=== PATIENT | male | born 1960 | race Caucasian/White ===

== ENCOUNTER 2020-06-15 09:03 | Outpatient (REF) | payer MEDICARE, MEDICAID, SELFPAY ==
[2020-06-15 10:01] LABS: MANUAL DIFF FLAG NO
[2020-06-15 10:08] LABS: Basophils Percent Auto 0.4 % (0-2); Eosinophils Absolute Auto 0.2 X10*3/uL (0.0-0.4); Eosinophils Percent Auto 2.1 % (0-4); Hematocrit 52.9 % (42-52); Hemoglobin 17.7 g/dl (14.0-18.0); Imm Gran Abs Auto 0.03 X10*3/uL (0.00-0.03); Imm Gran Pct Auto 0.4 % (0.0-0.4); Lymphocytes Percent Auto 24.1 % (20-40); Mean Corpuscular HGB Conc 33.5 g/dl (31.0-36.0); Mean Corpuscular Hemoglobin 29.8 pg (27.0-33.0); Mean Corpuscular Volume 89.2 fL (80-98); Mean Platelet Volume 8.9 fL (9.4-12.4); Monocytes Absolute Auto 0.5 X10*3/uL (0.1-1.2); Monocytes Percent Auto 6.6 % (2-11); Neutrophils Absolute Auto 5.5 X10*3/uL (2.0-8.3); Neutrophils Percent Auto 66.4 % (45-73); Platelet Count 221 X10*3/uL (160-400); Red Blood Count 5.93 X10*6/uL (4.60-5.80); Red Cell Distribution Width 12.7 % (11.0-16.0); White Blood Count 8.2 X10*3/uL (4.8-10.8)
[2020-06-15 10:23] LABS: Estimated Average Glucose 134 mg/dL; Hemoglobin A1c % 6.3 %
[2020-06-15 10:29] LABS: Alanine Aminotransferase 27 U/L (0-40); Albumin Level 4.3 g/dL (3.5-5.0); Alkaline Phosphatase 92 U/L (39-117); Anion Gap 11 (12-20); Aspartate Amino Transferase 22 U/L (5-37); Bilirubin Total 0.9 mg/dL (0.0-1.0); Blood Urea Nitrogen 19 mg/dL (9-16); Calcium 9.2 mg/dL (8.4-10.2); Carbon Dioxide 29 mmol/L (22-29); Chloride 102 mmol/L (96-108); Cholesterol 101 mg/dL; Estimated Glomerular Filt Rate > 60; Glucose Random 119 mg/dL (60-115); HDL Cholesterol 29 mg/dL; LDL Cholesterol Calculated 53 mg/dl; Potassium 4.4 mmol/l (3.3-5.1); Sodium 138 mmol/L (135-145); Total Protein 7.1 g/dL (6.5-8.0); Triglycerides 99 mg/dL
[2020-06-15 10:46] LABS: T4 Thyroxine 6.3 ug/dL (4.5-12.0)
[2020-06-15 10:48] LABS: Creatinine Urine 320.35 mg/dL; Microalbum/Creatinine Ratio Ur 5.9 ug/mg cr
[2020-06-15 10:49] LABS: Prostate Specific Antigen Scr 0.63 ng/mL (<0.05-4.0)
[2020-06-15 11:17] LABS: Folate 7.5 ng/mL (> or = 4.0); Vitamin B12 437 pg/mL (200-900)
== END 2020-06-15 09:04 | disposition home or self-care (01) ==
LOC: HO.LAB 09:03
PROVIDERS: PCP Internal Medicine; Visit Provider Internal Medicine
DX: E78.00 Pure hypercholesterolemia, unspecified (principal); E11.9 Type 2 diabetes mellitus without complications; J44.9 Chronic obstructive pulmonary disease, unspecified; I25.10 Atherosclerotic heart disease of native coronary artery without angina pectoris; Z72.0 Tobacco use
CPT/HCPCS: 36415; 80053; 80061; 82043; 82607; 82746; 83036; 84153; 84436; 84443; 85025

== ENCOUNTER 2021-06-16 10:39 | Outpatient (REF) | payer OTHER, SELFPAY ==
[2021-06-16 13:44] LABS: Alanine Aminotransferase 33 U/L (0-40); Albumin Level 4.2 g/dL (3.5-5.0); Alkaline Phosphatase 87 U/L (39-117); Anion Gap 15 (12-20); Aspartate Amino Transferase 19 U/L (5-37); Bilirubin Total 0.9 mg/dL (0.0-1.0); Blood Urea Nitrogen 19 mg/dL (9-16); Calcium 9.8 mg/dL (8.4-10.2); Carbon Dioxide 27 mmol/L (22-29); Chloride 104 mmol/L (96-108); Cholesterol 138 mg/dL; Estimated Glomerular Filt Rate > 60; Glucose Fasting 130 mg/dL (60-99); HDL Cholesterol 29 mg/dL; LDL Cholesterol Calculated 77 mg/dl; Potassium 4.5 mmol/L (3.3-5.1); Sodium 141 mmol/L (135-145); Total Protein 7.1 g/dL (6.5-8.0); Triglycerides 163 mg/dL
== END 2021-06-16 10:40 | disposition home or self-care (01) ==
LOC: HO.10HDL 10:39
PROVIDERS: Visit Provider Nurse Practitioner Family
DX: E11.65 Type 2 diabetes mellitus with hyperglycemia (principal); E78.00 Pure hypercholesterolemia, unspecified; Z12.5 Encounter for screening for malignant neoplasm of prostate
CPT/HCPCS: 36415; 80053; 80061; 84153

== ENCOUNTER 2021-07-14 07:52 | Outpatient (RCR) | payer OTHER, SELFPAY | END 2021-07-28 15:08 | disposition home or self-care (01) | LOC: HO.WCC 07:52 | PROVIDERS: PCP Internal Medicine; Visit Provider Surgery | DX: E11.628 Type 2 diabetes mellitus with other skin complications (principal); L02.221 Furuncle of abdominal wall; F17.210 Nicotine dependence, cigarettes, uncomplicated; F12.90 Cannabis use, unspecified, uncomplicated | CPT/HCPCS: 99212 ==

== ENCOUNTER → 2021-08-23 10:12 | Outpatient (BNVA) | payer OTHER, SELFPAY | PROVIDERS: PCP Internal Medicine; Referring Provider Internal Medicine; Visit Provider Surgery | DX: K43.9 Ventral hernia without obstruction or gangrene (principal) | CPT/HCPCS: 99202 ==

== ENCOUNTER 2021-09-14 13:28 | Outpatient (REF) | payer OTHER, SELFPAY ==
--- NOTE | ~2021-09-14 | CT_ITS ---
EXAMINATION: CT ABDOMEN AND PELVIS WITHOUT CONTRAST CLINICAL INFORMATION: Ventral hernia. COMPARISON: Previous CT of the abdomen and pelvis from 2016 TECHNIQUE: Multidetector volumetric imaging was performed from the superior aspect of the liver through the pubic symphysis. Sagittal and coronal reformatted images were obtained on the technologist's workstation. This CT examination was performed using dose optimization techniques as appropriate, variously including the following: *Automated exposure control *Adjustment of mA and/or kV according to patient size (this includes techniques or standardized protocols for targeted exams where dose is matched to indication/reason for exam; i.e. extremities or head) *Use of iterative reconstruction technique DLP: 602 mGy-cm FINDINGS: LUNG BASES: There is a left posterior medial diaphragmatic hernia containing fat and the left adrenal gland. LIVER, GALLBLADDER, AND BILIARY TREE: There is a small 7 mm low-attenuation liver lesion that is stable and probably represents a cyst. The liver is otherwise unremarkable. The gallbladder is unremarkable. PANCREAS: Unremarkable. SPLEEN: Unremarkable. ADRENAL GLANDS: There is a small stable calcification in the left adrenal gland. The adrenal glands are otherwise unremarkable. KIDNEYS AND URETERS: The kidneys are normal in size, shape, and attenuation. There is question of a tiny stone in the upper pole of the left kidney. BLADDER: Not optimally distended. GASTROINTESTINAL TRACT: There is diverticulosis of the colon. No evidence of diverticulitis is seen. There are postsurgical changes to the transverse colon and small bowel with surgical staple lines. There is a slightly dilated fluid-filled loop of small bowel seen in the left lower abdominal wall in one of the hernias. The small bowel is otherwise unremarkable. The appendix is unremarkable. The stomach is unremarkable. ABDOMINAL WALL: There is a large complex ventral hernia. It begins 7 cm below the xiphoid process and contains the distal stomach. More inferiorly, this contains multiple loops of small and large bowel. This has a wide neck measuring 15 cm. The length of the hernia measures 31 cm. This measures 8 x 22 cm in AP and transverse dimension. There are smaller more inferior hernias. There is a smaller more inferior hernia to the right of midline that contains a loop of small bowel. There is a larger more inferior left-sided hernia that contains small and large bowel and the appendix. No definite evidence of vascular compromise or obstruction of the bowel is seen. LYMPH NODES: Normal. VASCULAR: There is atherosclerotic disease. PELVIC VISCERA: Unremarkable. OSSEOUS STRUCTURES: There are degenerative changes of the spine. CT/CT abdomen pelvis wo con IMPRESSION: Multiple large abdominal wall hernias containing loops of small and large bowel, appendix and stomach. No evidence of obstruction. Left posterior medial diaphragmatic hernia containing fat and the left adrenal gland. Fleischner guidelines were followed.
== END 2021-09-14 13:29 | disposition home or self-care (01) ==
LOC: HO.CT 13:28
PROVIDERS: Visit Provider Surgery
DX: K43.9 Ventral hernia without obstruction or gangrene (principal)
CPT/HCPCS: 74176

== ENCOUNTER 2022-05-12 10:30 | Outpatient (RCR) | payer OTHER, SELFPAY | END 2022-07-11 14:38 | disposition home or self-care (01) | LOC: HO.WCC 10:30 | PROVIDERS: PCP Internal Medicine; Visit Provider Physician Assistant | DX: S30.811D Abrasion of abdominal wall, subsequent encounter (principal); K43.2 Incisional hernia without obstruction or gangrene; X58.XXXD Exposure to other specified factors, subsequent encounter | CPT/HCPCS: 97597; 99202; 99212; 99213 ==

== ENCOUNTER 2022-06-10 08:36 | Outpatient (REF) | payer OTHER, SELFPAY ==
[2022-06-10 10:55] LABS: MANUAL DIFF FLAG NO
[2022-06-10 11:03] LABS: Basophils Absolute Auto 0.1 X10*3/uL (0.0-0.2); Basophils Percent Auto 0.8 % (0-2); Eosinophils Absolute Auto 0.2 X10*3/uL (0.0-0.4); Eosinophils Percent Auto 2.4 % (0-4); Hematocrit 50.2 % (42.0-52.0); Hemoglobin 16.5 g/dl (14.0-18.0); Imm Gran Abs Auto 0.02 X10*3/uL (0.00-0.03); Imm Gran Pct Auto 0.3 % (0.0-0.4); Lymphocytes Percent Auto 26.7 % (20-40); Mean Corpuscular HGB Conc 32.9 g/dl (31.0-36.0); Mean Corpuscular Hemoglobin 29.2 pg (27.0-33.0); Mean Corpuscular Volume 88.8 fL (80.0-98.0); Monocytes Absolute Auto 0.7 X10*3/uL (0.1-1.2); Monocytes Percent Auto 9.2 % (2-11); Neutrophils Absolute Auto 4.6 x10*3/uL (2.0-8.3); Neutrophils Percent Auto 60.6 % (45-73); Platelet Count 221 X10*3/uL (160-400); Red Blood Count 5.65 X10*6/uL (4.60-5.80); Red Cell Distribution Width 12.6 % (11.0-16.0); White Blood Count 7.6 X10*3/uL (4.8-10.8)
[2022-06-10 12:06] LABS: Estimated Average Glucose 146 mg/dL; Hemoglobin A1c % 6.7 %
[2022-06-10 14:28] LABS: Alanine Aminotransferase 65 U/L (0-40); Albumin Level 4.2 g/dL (3.5-5.0); Alkaline Phosphatase 93 U/L (39-117); Anion Gap 12 (12-20); Aspartate Amino Transferase 36 U/L (5-37); Bilirubin Total 0.8 mg/dL (0.0-1.0); Blood Urea Nitrogen 18 mg/dL (9-16); Calcium 9.5 mg/dL (8.4-10.2); Carbon Dioxide 30 mmol/L (22-29); Chloride 102 mmol/L (96-108); Cholesterol 126 mg/dL; Estimated Glomerular Filt Rate > 60; Free T4 (Free Thyroxine) 0.85 ng/dL (0.71-1.85); Glucose Random 157 mg/dL (60-115); HDL Cholesterol 34 mg/dL; LDL Cholesterol Calculated 57 mg/dl; Prostate Specific Antigen 0.61 ng/mL (<0.05-4.0); Sodium 139 mmol/L (135-145); Thyroid Stimulating Hormone 2.04 uIU/mL (0.32-4.0); Total Protein 6.9 g/dL (6.5-8.0); Triglycerides 176 mg/dL
[2022-06-10 15:00] LABS: Creatinine Urine 246.04 mg/dL; Microalbum/Creatinine Ratio Ur 11.3 ug/mg cr
== END 2022-06-10 08:37 | disposition home or self-care (01) ==
LOC: HO.10HDL 08:36
PROVIDERS: Absent Provider Internal Medicine; Visit Provider Internal Medicine
DX: Z12.5 Encounter for screening for malignant neoplasm of prostate (principal); E11.65 Type 2 diabetes mellitus with hyperglycemia; E78.00 Pure hypercholesterolemia, unspecified
CPT/HCPCS: 36415; 80053; 80061; 82043; 83036; 84153; 84439; 84443; 85025

== ENCOUNTER 2022-06-29 10:52 | Outpatient (REF) | payer OTHER, SELFPAY ==
[2022-06-29 14:44] LABS: Alanine Aminotransferase 31 U/L (0-40); Albumin Level 4.2 g/dL (3.5-5.0); Alkaline Phosphatase 86 U/L (39-117); Aspartate Amino Transferase 19 U/L (5-37); Bilirubin Direct 0.3 mg/dL (0.0-0.5); Bilirubin Total 0.6 mg/dL (0.0-1.0); Blood Urea Nitrogen 17 mg/dL (9-16); Estimated Glomerular Filt Rate > 60
[2022-07-01 09:07] LABS: HBS Num1 0.66 mIU/mL (0-7.99); HBc Num1 0.08 S/CO (0.00-0.79); HBsAGNum1 0.31 S/CO (0.00-0.99); Hepatitis B Core Antibody Nonreactive (Nonreactive); Hepatitis B Surface Antigen Negative (Negative); ~HepC Num1 0.08 S/CO (0.00-0.79); ~Hepatitis B Surface Antibody NONREACTIVE (Nonreactive); ~Hepatitis C Antibody Nonreactive (Nonreactive)
== END 2022-06-29 10:53 | disposition home or self-care (01) ==
LOC: HO.10HDL 10:52
PROVIDERS: Visit Provider Internal Medicine
DX: K43.9 Ventral hernia without obstruction or gangrene (principal); R79.89 Other specified abnormal findings of blood chemistry; E11.65 Type 2 diabetes mellitus with hyperglycemia
CPT/HCPCS: 36415; 80076; 82565; 84520; 86704; 86706; 86803; 87340

== ENCOUNTER 2022-07-20 10:00 | Outpatient (REF) | payer OTHER, SELFPAY ==
--- NOTE | ~2022-07-20 | US_ITS ---
EXAMINATION: US ABDOMEN LIMITED CLINICAL INFORMATION: Elevated LFTs. COMPARISON: CT abdomen and pelvis 09/14/2021. Renal ultrasound 03/27/2015. X-ray abdomen 11/21/2014. Limited abdominal ultrasound 07/11/2012. TECHNIQUE: Real-time imaging of the right upper quadrant abdominal viscera. FINDINGS: PANCREAS: The pancreatic tail is obscured by overlying bowel gas. The remaining of the visualized portions of the pancreas are within normal limits. LIVER: The liver is normal in size. The liver contour is normal. Increased parenchymal echogenicity. There is a 1.1 cm simple cyst in the right hepatic lobe, for which no imaging follow-up is recommended. There is no intrahepatic biliary duct dilatation seen. GALLBLADDER: Normal. The gallbladder is physiologically distended without evidence of stones, sludge, polyps, wall thickening or pericholecystic fluid. COMMON BILE DUCT: Normal in caliber measuring 0.5 cm in diameter. RIGHT KIDNEY: Normal. No hydronephrosis. No renal calculi or focal parenchymal lesions. The kidney measures 11.2 cm in maximum dimension. FREE FLUID: None. US/US abdomen limited IMPRESSION: Increased liver parenchymal echogenicity which could be seen with hepatic steatosis and/or hepatocellular disease. Otherwise, normal examination.
== END 2022-07-20 10:01 | disposition home or self-care (01) ==
LOC: HO.US 10:00
PROVIDERS: PCP Internal Medicine; Visit Provider Internal Medicine
DX: R79.89 Other specified abnormal findings of blood chemistry (principal)
CPT/HCPCS: 76705

== ENCOUNTER 2022-10-04 08:49 | Emergency (ER) | payer OTHER, SELFPAY ==
--- NOTE | ~2022-10-04 | CT_ITS ---
EXAMINATION: CT ABDOMEN AND PELVIS WITHOUT CONTRAST CLINICAL INFORMATION: Left back and flank pain. COMPARISON: CT abdomen and pelvis 09/14/2021 TECHNIQUE: Multidetector volumetric imaging was performed from the superior aspect of the liver through the pubic symphysis. Sagittal and coronal reformatted images were obtained on the technologist's workstation. This CT examination was performed using dose optimization techniques as appropriate, variously including the following: *Automated exposure control *Adjustment of mA and/or kV according to patient size (this includes techniques or standardized protocols for targeted exams where dose is matched to indication/reason for exam; i.e. extremities or head) *Use of iterative reconstruction technique DLP: 674 mGy-cm FINDINGS: LUNG BASES: The visualized lung bases are unremarkable. There is eventration of left hemidiaphragm with a small hernia containing fat. LIVER, GALLBLADDER, AND BILIARY TREE: The liver is normal in size, shape, and attenuation. There is a 7 mm low-attenuation lesion in the right hepatic lobe, stable on image 20/3. No additional lesions seen. No intrahepatic ductal dilatation.. The gallbladder is unremarkable with no evidence of radiopaque gallstones, gallbladder wall thickening, or obvious pericholecystic inflammatory changes. PANCREAS: Unremarkable. SPLEEN: Unremarkable. ADRENAL GLANDS: Unremarkable. KIDNEYS AND URETERS: The kidneys are normal in size, shape, and attenuation. No hydronephrosis, hydroureter, or calculi seen. No perinephric stranding. BLADDER: Unremarkable. GASTROINTESTINAL TRACT: There is scattered stool, diabetes and gas seen throughout the colon without distention. The small bowel loops are normal caliber. Appendix is not visualized. The stomach is nondistended. No free air or free fluid seen. ABDOMINAL WALL: There is a large anterior abdominal wall complex ventral hernia containing loops of colon and small bowel loops. The neck is wide measuring 15.8 cm. LYMPH NODES: Normal. VASCULAR: There are atherosclerotic changes of abdominal aorta without aneurysmal dilatation. PELVIC VISCERA: There is no free air or free fluid seen. The prostate gland is normal size with central gland calcification. OSSEOUS STRUCTURES: No aggressive lytic or sclerotic process seen. There is mild degenerative disc changes L5-S1 and L4-L5 disc levels. There is moderate ventral spondylosis lower dorsal and mild spondylosis throughout lumbar spine. CT/CT abdomen pelvis wo IV con IMPRESSION: 1. No acute intra-abdominal process seen. 2. Large complex ventral abdominal wall hernia containing loops of colon and small bowel loops. No obstruction seen. 3. No radiopaque urolith or hydroureteronephrosis. Fleischner guidelines were followed.
[2022-10-04 09:00] VITALS: BP 106/58; PULSE 62; RESP 18; TEMP 36.8; O2SAT 96; BMI 28.8
[2022-10-04] MEDS: Acetaminophen 325 MG TABLET 975 MG PO (11:01)
[2022-10-04] MEDS: oxyCODONE HCl Immed Release 5 MG TABLET PO (11:02)
--- NOTE | 2022-10-04 11:15 | ED.BACK ---
HPI - Back Pain/Injury General Chief Complaint: Back Pain/Injury Stated Complaint: Back pain Time Seen by Provider: 10/04/22 09:08 History of Present Illness HPI Narrative: Patient complains of left-sided low back pain worse with movement which started as a mild ache yesterday after bending and got more severe it middle of the night when he got up to let the dog out and felt sharp pain with movement is back worse than it was earlier in the day, there is no radiation of pain no numbness weakness or tingling there is no chest pain or abdominal pain there is no changes to bowel or bladder no dysuria no frequency no incontinence Related Data Home Medications Medication Instructions Recorded Confirmed aspirin 81 mg tablet,delayed 81 mg PO DAILY 04/23/20 08/25/22 release (Adult Aspirin Regimen) isosorbide mononitrate 30 mg 30 mg PO DAILY 04/23/20 08/25/22 tablet,extended release 24 hr nitroglycerin 0.4 mg sublingual 0.4 mg sublingual Q5M PRN 04/23/20 08/25/22 tablet metoprolol succinate 25 mg 25 mg PO DAILY 04/05/22 08/25/22 tablet,extended release 24 hr (Toprol XL) Previous Rx's Medication Instructions Recorded clotrimazole 1 % topical cream 1 appl topical BID 4 weeks #45 09/29/20 grams atorvastatin 80 mg tablet 80 mg PO DAILY 90 days #90 tabs 01/06/22 acetaminophen 500 mg tablet 1,000 mg PO QID PRN pain #30 tabs 10/04/22 cyclobenzaprine 5 mg tablet 5 mg PO TID PRN muscle spasm #10 10/04/22 tabs oxycodone 5 mg tablet 5 mg PO Q6H PRN pain #14 tabs 10/04/22 Allergies Allergy/AdvReac Type Severity Reaction Status Date / Time morphine [MORPHINE] Allergy Severe hallucinati Verified 08/25/22 08:26 ons rosuvastatin Allergy Intermediate Rash Verified 08/25/22 08:26 [facility] Past Medical History Source: nursing notes reviewed Medical History (Updated 10/04/22 @ 11:20 by ANDRÉS Figueroa) Abdominal wall hernia COPD (chronic obstructive pulmonary disease) Coronary artery disease Hypercholesterolemia Impacted cerumen of right ear Obesity (BMI 30-39.9) Tinea cruris Tobacco abuse Type 2 diabetes mellitus with hyperglycemia Surgical History (Updated 04/05/22 @ 11:56 by SADIA Charles) History of colonoscopy History of colostomy reversal Family History Family History Father Past heart attack Cancer Maternal Uncle Myocardial infarction Mother No problems noted. Social History Social History Housing: House Alcohol intake: current Alcohol intake frequency: a few times a month Alcohol type: wine Patient Tobacco Use Status: Former Tobacco user Tobacco use type: Cigarette Cigarette Packs Per Day: 0.5 Cigarettes Per Day: 10 Years Smoked: 12 years old started e-Cigarette/Vaping Use: Never Used Second Hand Smoke Exposure: No Advance Directives: No Advance Directives Information Provided: Yes service: No Current occupational status: unemployed and disabled Cognitive needs: No Hearing needs: No Vision needs: No Physical Exam Vital Signs: Vital Signs: Last Vital Signs Temp 98.3 F 10/04/22 09:00 Pulse 62 10/04/22 09:00 Resp 18 10/04/22 09:00 BP 106/58 L 10/04/22 09:00 Pulse Ox 96 10/04/22 09:00 O2 Del Method Room Air 10/04/22 09:00 BMI result Body Mass Index 28.8 General appearance no acute distress Head is normocephalic atraumatic Neck is supple Respiratory no distress Chest clear to auscultation bilateral no chest wall tenderness Heart no murmur Abdomen there is a very large hernia protruding from abdominal wall, there is no tenderness, no rebound or guarding The back there is left lower lumbar paraspinal soft tissue tenderness, skin of the back is normal, pain is easily reproduced with movement there is no focal bony tenderness Skin no rashes Neuro motor is 5 over time 5 x 4, sensation is intact and symmetrical Course Course Course Narrative: CT scan of abdomen and pelvis did not show any compression fractures, no enlarged aorta, no masses It did show large hernia which patient is planning to treat surgically and has been a known problem for quite some time Well-appearing but uncomfortable patient with left-sided musculoskeletal back pain is treated with analgesics and muscle relaxer and discharged with no neurologic deficit, no change to bowel or bladder no fever Medications Administered Discontinued Medications Generic Name Dose Route Start Last Admin Trade Name Freq PRN Reason Stop Dose Admin Acetaminophen 975 mg 10/04/22 10:50 10/04/22 11:01 Acetaminophen 325 Mg Tablet PO 10/04/22 10:51 975 mg ONCE ONE Administration Oxycodone HCl 5 mg 10/04/22 10:50 10/04/22 11:02 Oxycodone Hcl Immed Release 5 Mg Tablet PO 10/04/22 10:51 5 mg ONCE ONE Administration Discharge Plan Discharge Clinical Impression: Back pain Patient Disposition: Home, Self-Care Additional Instructions: CT scan did not show any emergent or dangerous findings Use pain killers and muscle relaxant as prescribed Return any time for weakness incontinence any worse condition or any concerns Follow with primary doctor for further evaluation Prescriptions: New oxycodone 5 mg tablet 5 mg PO Q6H PRN (Reason: pain) Qty: 14 0RF Rx Instructions: Partial Fill upon patient request. acetaminophen 500 mg tablet 1,000 mg PO QID PRN (Reason: pain) Qty: 30 0RF cyclobenzaprine 5 mg tablet 5 mg PO TID PRN (Reason: muscle spasm) Qty: 10 0RF No Action atorvastatin 80 mg tablet 80 mg PO DAILY 90 Days Qty: 90 3RF isosorbide mononitrate 30 mg tablet extended release 24 hr 30 mg PO DAILY nitroglycerin 0.4 mg tablet, sublingual 0.4 mg sublingual Q5M PRN Rx Instructions: do not exceed 3 doses per episode aspirin [Adult Aspirin Regimen] 81 mg tablet,delayed release (DR/EC) 81 mg PO DAILY metoprolol succinate [Toprol XL] 25 mg tablet extended release 24 hr 25 mg PO DAILY clotrimazole 1 % cream 1 appl topical BID 28 Days Qty: 45 0RF
== END 2022-10-04 11:32 | disposition home or self-care (01) ==
PROVIDERS: Emergency Provider Emergency Medicine; PCP Internal Medicine
DX: M54.50 Low back pain, unspecified (principal); R10.2 Pelvic and perineal pain
CPT/HCPCS: 74176; 99283; 99284

== ENCOUNTER 2023-04-06 08:46 | Outpatient (AMB) | payer OTHER, SELFPAY ==
[2023-04-06 08:47] VITALS: BP 120/70; PULSE 56; O2SAT 100; BMI 30.1
--- NOTE | 2023-04-06 08:47 | AM.OFFVISMDC ---
Intake Vital Signs 04/06/23 08:47 Height 5 ft 8 in Weight 198 lb BMI 30.1 BP 120/70 Blood Pressure Location Lt brachial Position Sitting Pulse 56 Pulse Source Pulse Oximeter Temp Source Skin Pulse Oximetry (%) 100 Oxygen Delivery Method Room Air Intake Visit Reasons: V G0439 Intake Note: Patient is here for an Annual Wellness Visit. Public Health Informatician Required: No Allergies morphine [MORPHINE] Allergy (Severe, Verified 04/06/23 09:21) hallucinations rosuvastatin Allergy (Intermediate, Verified 04/06/23 09:21) Rash Medication List - Last Reconciled 04/06/23 by SADIA Charles acetaminophen 1,000 mg (2 x 500 mg) PO QID PRN aspirin (Adult Aspirin Regimen) 81 mg PO DAILY atorvastatin 80 mg PO DAILY 90 days clotrimazole 1% 1 appl topical BID 4 weeks cyclobenzaprine 5 mg PO TID PRN 15 days isosorbide mononitrate ER 30 mg PO DAILY metoprolol succinate ER (Toprol XL) 25 mg PO DAILY nitroglycerin 0.4 mg sublingual Q5M PRN varenicline 1 mg PO BID HPI SWV G0439 HPI Details Patient is a 62-year-old male who presents today for subsequent wellness visit. Patient of Dr. Eubanks. Today we discussed patient's need for colon cancer screening, tetanus vaccine, and low-dose chest CT scan due to history of smoking. Patient has declined tetanus vaccine and low-dose chest CT scan. [place] of care was reviewed with the patient and he was provided with a screening schedule. End of life planning was discussed with the patient and he was provided with healthcare proxy and MOLST forms. [facility] Medical History (Updated 04/06/23 @ 13:55 by SADIA Charles) Lateral epicondylitis of left elbow Neck pain Impacted cerumen of right ear Tinea cruris COPD (chronic obstructive pulmonary disease) Abdominal wall hernia Tobacco abuse Obesity (BMI 30-39.9) Type 2 diabetes mellitus with hyperglycemia Hypercholesterolemia Coronary artery disease Surgical History History of colostomy reversal History of colonoscopy Family History Father Past heart attack Cancer Maternal Uncle Myocardial infarction Mother No problems noted. Social History Housing: House Alcohol intake: current Alcohol intake frequency: a few times a month Alcohol type: wine Patient Tobacco Use Status: Former Tobacco user Tobacco use type: Cigarette Cigarette Packs Per Day: 0.5 Cigarettes Per Day: 10 Years Smoked: 12 years old started e-Cigarette/Vaping Use: Never Used Second Hand Smoke Exposure: No service: No Current occupational status: unemployed and disabled Cognitive needs: No Hearing needs: No Vision needs: No Questionnaire Medicare Wellness Checkup What is your age?: 65-69 (61) What gender do you identify with?: male During the past 4 weeks, how much have you been bothered by emotional problems such as feeling anxious, depressed, irritable, sad or downhearted, and blue?: not at all During the past 4 weeks, has your physical & emotional health limited your social activities with family, friends, neighbors, or groups?: not at all During the past 4 weeks, how much bodily pain have you generally had?: very mild pain During the past 4 weeks, was someone available to help you if you needed & wanted help?: yes, as much as I wanted During the past 4 weeks, what was the hardest physical activity you could do for at least 2 minutes?: moderate Can you get to places out of walking distance without help? (For eg., can you travel alone on buses, taxis or drive your car?): Yes Can you go shopping for groceries or clothes without someone's help?: Yes Can you prepare your own meals?: Yes Can you do your housework without help?: No Because of any health problems, do you need the help of another person with your personal care needs such as eating, bathing, dressing or getting around the house?: No Can you handle your own money without help?: Yes During the past 4 weeks, how would you rate your health in general?: good During the past 4 weeks how have things been going for you?: pretty well Are you having difficulties driving your car?: no Do you always fasten your seat belt when you are in a car?: no During past 4 weeks, have you been bothered by the following: never: Falling or dizzy when standing up, Sexual problems?, Trouble eating well?, Teeth or denture problems?, Problems using the telephone? and Tiredness or fatigue? Have you fallen 2 or more times in the past year?: No Are you afraid of falling?: No Are you a smoker?: no During the past 4 weeks, how many drinks of wine, beer, or other alcoholic beverages did you have?: 2-5 drinks per week Do you exercise for about 20 minutes 3 or more times a week?: yes, some of the time Have you been given information to help with the following?: no: Hazards in your house that might hurt you? and no: Keeping track of your medications? How often do you have trouble taking medicines the way you have been told to take them?: I always take medicine as prescribed How confident are you that you can control & manage most of your health problems?: not very confident What is your race?: White Mini Mental State Exam (MMSE) Orientation What is the (year) (season) (date) (day) (month)?: year, season, date, day and month Score Score: 5 Activity of Daily Living Bathing - sponge bath, tub bath or shower: receives no assistance (gets in/out by self, if usual bathing means Dressing - getting clothes from closets & drawers, including inner/outer garments & fasteners.: gets clothes & gets completely dressed without help Toileting - going to the 'toilet room' for urine/bowel elimination & cleaning self/arranging clothes: goes to toilet room, cleans self, arranges clothes without help Transfer: moves in & out of bed and chair without help (may use support object) Continence: controls urination/bowel movements completely by self Feeding: feeds self without help Total Score: 0 Information obtained from: patient Using telephone: independent Traveling: independent Shopping: independent Preparing meals: independent Housework: dependent Taking medicine: independent Managing money: independent PHQ-9 Over the last 2 weeks, how often have you been bothered by any of the following problems? 1. Little interest or pleasure in doing things: not at all 2. Feeling down, depressed, or hopeless: not at all 3. Trouble falling or staying asleep, or sleeping too much: not at all 4. Feeling tired or having little energy: several days 5. Poor appetite or overeating: not at all 6. Feeling bad about yourself - or that you are a failure or have let yourself or your family down: not at all 7. Trouble concentrating on things, such as reading the newspaper or watching television: not at all 8. Moving or speaking so slowly that other people could have noticed. Or the opposite - being so fidgety or restless that you have been moving around a lot more than usual: not at all 9. Thoughts that you would be better off or of hurting yourself in some way: not at all Total score: 1 Depression Screening Interpretation: Negative Depression Screening Done: Yes 42670 - PHQ-9 Billing: Yes Source: Developed by Drs. Jeffy Riddle, Hailey Reynolds, Triston Melendez and colleagues, with an educational lu from [employer]. Physical Exam Vital Signs: Last Vital Signs Pulse 56 04/06/23 08:47 BP 120/70 04/06/23 08:47 Pulse Ox 100 04/06/23 08:47 Oxygen Delivery Method Room Air 04/06/23 08:47 BMI result Body Mass Index 30.1 Const General: cooperative and no acute distress Orientation/consciousness: patient oriented x3 HEENT Other: Whisper test: pass Neuro Other: Balance: Normal Get up and walk: able to Romberg: negative Tandem gait: unable to General: patient oriented x3 Office Procedures Flu Questionnaire Does the patient have a severe egg allergy?: No Does the patient have severe life threatening allergies?: No Does the patient have a fever or illness today?: No Has the patient ever had Guillain-[place] Syndrome?: No Has the patient ever had any past reaction to a flu shot?: No Results AMB Hemoglobin A1c AMB Hemoglobin A1c 6.9 % Last Edit by LOURDES Conley on 04/06/23 09:12 Immunizations flu vacc [id number] 6mos up(PF) 60 mcg(15 mcgx4)/0.5 mL IM syringe Performing Provider: SADIA Charles [facility] Administered by: LOURDES Conley on 04/06/23 09:10 Dose Route Admin Location Dispensed Lot Number Expiration Date [facility] [employer] 0.5 mL IM Left Deltoid 0.5 mL [id number] 12/24/23 [id number] [employer] VIS Given Date VIS Provided VIS Publication Date 04/06/23 Single Vaccine 21 Eligibility Eligibility Date Funding Source Not VF Eligible 04/06/23 Private Results Reviewed Results Reviewed: Laboratory Last Values Hgb A1c (Clinic) 6.9 % (4.0-6.0) H 04/06/23 09:11 Assessment & Plan Assessment & Plan (1) Adult general medical exam: Code(s): Z00.00 - Encounter for general adult medical examination without abnormal findings (2) COPD (chronic obstructive pulmonary disease): Comment: Severe obstructive airway partial response PFT April 2019 Code(s): J44.9 - Chronic obstructive pulmonary disease, unspecified Qualifiers: COPD type: emphysema Emphysema type: unspecified Qualified Code(s): J43.9 - Emphysema, unspecified Plan: Stable Not on treatment (3) Abdominal wall hernia: Comment: History Perforated bowel, perforated diverticulum Code(s): K43.9 - Ventral hernia without obstruction or gangrene Plan: Continue to follow-up with Dr. Loyola - patient reports that he needs to lose weight 1st and then can proceed with hernia surgery (4) Tobacco abuse: Comment: stopped january 2022 Code(s): Z72.0 - Tobacco use Plan: Currently on chantix, patient reports that he does not smoke anymore Patient declined low-dose chest CT scan (5) Obesity (BMI 30-39.9): Code(s): E66.9 - Obesity, unspecified Plan: Reinforced healthy food choices and exercise as tolerated (6) Type 2 diabetes mellitus with hyperglycemia: Comment: Dr. Mast Code(s): E11.65 - Type 2 diabetes mellitus with hyperglycemia Qualifiers: Diabetes mellitus care home insulin use: without care home use Qualified Code(s): E11.65 - Type 2 diabetes mellitus with hyperglycemia Plan: A1c 6.9 today, goal less than 7, not on treatment, patient reports that he does not want to start any diabetes medications today, he will continue with low-carbohydrate diet - educated about importance of diabetes control (7) Hypercholesterolemia: Code(s): E78.00 - Pure hypercholesterolemia, unspecified Plan: Continue current treatment. Reinforced low-cholesterol diet. (8) Coronary artery disease: Comment: Stent May 2015 echo normal September 2018 Code(s): I25.10 - Atherosclerotic heart disease of [place] coronary artery without angina pectoris Qualifiers: Coronary Disease-Associated Artery/Lesion type: [place] artery [place] vs. transplanted heart: [place] heart Associated angina: without angina Qualified Code(s): I25.10 - Atherosclerotic heart disease of [place] coronary artery without angina pectoris Plan: Continue to follow-up with Dr. Tse cardiology (9) Screening for colon cancer: Code(s): Z12.11 - Encounter for screening for malignant neoplasm of colon (10) Fatty liver: Code(s): K76.0 - Fatty (change of) liver, not elsewhere classified Plan: Low-cholesterol diet and weight loss Orders: Orders Influenza [id number] Immunization Today Z23 - Encounter for immunization AMB Hemoglobin A1c Today E11.65 - Type 2 diabetes mellitus with hyperglycemia Referrals General Surgery Referral Z12.11 - Encounter for screening for malignant neoplasm of colon Quality Reporting (2019) Depression/Bipolar (159/160/161/177) PHQ-9: Total score: 1 Coding Level of Care Code Medicare Subsequent (G0439) Diagnoses Adult general medical exam Z00.00 Pulmonary emphysema, unspecified emphysema type J43.9 COPD type: emphysema Emphysema type: unspecified Abdominal wall hernia K43.9 Tobacco abuse Z72.0 Obesity (BMI 30-39.9) E66.9 Type 2 diabetes mellitus with hyperglycemia, without long-term current use of insulin E11.65 Diabetes mellitus care home insulin use: without intermediate manager use Hypercholesterolemia E78.00 Coronary artery disease involving [place] coronary artery of [place] heart without angina pectoris I25.10 Coronary Disease-Associated Artery/Lesion type: [place] artery [place] vs. transplanted heart: [place] heart Associated angina: without angina Screening for colon cancer Z12.11 Fatty liver K76.0 CPT Codes Advance Care Planning - Time spent: 1-15 minutes, not on file ([id number]) Advance Care Planning Date of discussion: 04/06/23 Who was present: pt and crnp Forms completed: None Time spent: 1-15 minutes, not on file Actual minutes spent: 2 Did not discuss due to Cultural/Spiritual beliefs: No
== END 2023-04-06 09:42 | disposition home or self-care (01) ==
PROVIDERS: Visit Provider Nurse Practitioner Family
DX: Z23 Encounter for immunization (principal); Z00.00 Encounter for general adult medical examination without abnormal findings; E11.65 Type 2 diabetes mellitus with hyperglycemia; J43.9 Emphysema, unspecified; I25.10 Atherosclerotic heart disease of native coronary artery without angina pectoris
CPT/HCPCS: 1124F; 83036; 90471; 90686; G0439

== ENCOUNTER → 2023-04-19 13:50 | Outpatient (BNVA) | payer OTHER, SELFPAY | PROVIDERS: PCP Internal Medicine; Referring Provider Nurse Practitioner Family; Visit Provider Surgery ==

== ENCOUNTER 2023-06-06 10:53 | Outpatient (REF) | payer OTHER, SELFPAY ==
[2023-06-06 13:28] LABS: MANUAL DIFF FLAG NO
[2023-06-06 14:02] LABS: Basophils Percent Auto 0.6 % (0-2); Eosinophils Absolute Auto 0.1 X10*3/uL (0.0-0.4); Eosinophils Percent Auto 1.1 % (0-4); Hematocrit 51.8 % (42.0-52.0); Hemoglobin 16.9 g/dl (14.0-18.0); Imm Gran Abs Auto 0.02 X10*3/uL (0.00-0.03); Imm Gran Pct Auto 0.3 % (0.0-0.4); Lymphocytes Percent Auto 28.8 % (20-40); Mean Corpuscular HGB Conc 32.6 g/dl (31.0-36.0); Mean Corpuscular Hemoglobin 29.5 pg (27.0-33.0); Mean Corpuscular Volume 90.6 fL (80.0-98.0); Mean Platelet Volume 9.4 fL (9.4-12.4); Monocytes Absolute Auto 0.6 X10*3/uL (0.1-1.2); Monocytes Percent Auto 8.7 % (2-11); Neutrophils Absolute Auto 4.3 x10*3/uL (2.0-8.3); Neutrophils Percent Auto 60.5 % (45-73); Platelet Count 231 X10*3/uL (160-400); Red Blood Count 5.72 X10*6/uL (4.60-5.80); Red Cell Distribution Width 12.6 % (11.0-16.0)
[2023-06-06 14:10] LABS: Estimated Average Glucose 143 mg/dL; Hemoglobin A1c % 6.6 % (<6.0)
[2023-06-06 14:41] LABS: Creatinine Urine 199.69 mg/dL; Microalbum/Creatinine Ratio Ur 9.5 ug/mg cr (<30)
[2023-06-06 14:48] LABS: Folate 9.4 ng/mL (> or = 4.0); Prostate Specific Antigen Scr 0.73 ng/mL (<0.05-4.0); Vitamin B12 529 pg/mL (200-900)
[2023-06-06 15:08] LABS: Alanine Aminotransferase 28 U/L (0-40); Albumin Level 4.2 g/dL (3.5-5.0); Alkaline Phosphatase 86 U/L (39-117); Anion Gap 14 (12-20); Aspartate Amino Transferase 21 U/L (5-37); Bilirubin Total 0.6 mg/dL (0.0-1.0); Blood Urea Nitrogen 21 mg/dL (9-16); Calcium 9.7 mg/dL (8.4-10.2); Carbon Dioxide 26 mmol/L (22-29); Chloride 105 mmol/L (96-108); Cholesterol 188 mg/dL (<200); Estimated Glomerular Filt Rate > 60; Glucose Random 125 mg/dL (60-115); HDL Cholesterol 35 mg/dL (>40); LDL Cholesterol Calculated 127 mg/dL (<100); Potassium 4.1 mmol/L (3.3-5.1); Sodium 141 mmol/L (135-145); Thyroid Stimulating Hormone 1.65 uIU/mL (0.32-4.0); Total Protein 7.7 g/dL (6.5-8.0); Triglycerides 134 mg/dL (<150)
== END 2023-06-06 10:54 | disposition home or self-care (01) ==
LOC: HO.10HDL 10:53
PROVIDERS: Visit Provider Internal Medicine
DX: Z12.5 Encounter for screening for malignant neoplasm of prostate (principal); E11.65 Type 2 diabetes mellitus with hyperglycemia; E78.00 Pure hypercholesterolemia, unspecified
CPT/HCPCS: 36415; 80053; 80061; 82043; 82570; 82607; 82746; 83036; 84153; 84439; 84443; 85025

== ENCOUNTER 2023-06-12 09:42 | Outpatient (AMB) | payer OTHER, SELFPAY ==
--- NOTE | 2023-06-12 09:42 | MHC.OFFVIS ---
Intake Vital Signs 06/12/23 09:43 Height 5 ft 8 in Weight 195 lb BMI 29.6 BP 158/72 H Blood Pressure Location Rt brachial Position Sitting Pulse 60 Intake Visit Reasons: discuss next step (POSITIVE Cologuard test) Intake Note: This patient presents for a follow-up assessment for positive cologuard test. Pt c/o; reports no complaints at this time. Cook Pressure Required: No Accompanied by: Other Relationship Allergies morphine [MORPHINE] Allergy (Severe, Verified 06/12/23 09:50) hallucinations rosuvastatin Allergy (Intermediate, Verified 06/12/23 09:50) Rash HPI discuss next step (POSITIVE Cologuard test) HPI Details 62-year-old male referred for screening colonoscopy. He has a history of perforated diverticulitis and had undergone a George's procedure more than 10 years ago. He had reversal of his colostomy and [place] had reversal of a protective loop ileostomy. He had a large hernia on the abdomen with severe loss of domain. He is following Dr. Addison in [place], [place] for this. He denies any significant GI complaints. He actually says he feels well overall. [facility] Medical History (Updated 06/12/23 @ 09:44 by Heladio Keen MD) Positive colorectal cancer screening using Cologuard test Lateral epicondylitis of left elbow Neck pain Impacted cerumen of right ear Tinea cruris COPD (chronic obstructive pulmonary disease) Abdominal wall hernia Tobacco abuse Obesity (BMI 30-39.9) Type 2 diabetes mellitus with hyperglycemia Hypercholesterolemia Coronary artery disease Surgical History History of colostomy reversal History of colonoscopy Family History Father Past heart attack Cancer Maternal Uncle Myocardial infarction Mother No problems noted. Social History Housing: House Alcohol intake: current Alcohol intake frequency: a few times a month Alcohol type: wine Patient Tobacco Use Status: Former Tobacco user Tobacco use type: Cigarette Cigarette Packs Per Day: 0.5 Cigarettes Per Day: 10 Years Smoked: 12 years old started e-Cigarette/Vaping Use: Never Used Second Hand Smoke Exposure: No service: No Current occupational status: unemployed and disabled Cognitive needs: No Hearing needs: No Vision needs: No Review of Systems Const Denies chills and Denies fever(s) Card Denies chest pain, Denies dyspnea and Denies dyspnea on exertion Resp Denies cough, Denies dyspnea and Denies dyspnea on exertion GI Denies hematochezia and Denies change in bowel habits Denies hematuria and Denies difficulty urinating Musc Denies back pain and Denies limited range of motion Neuro Denies focal weakness and Denies convulsions Psych Denies depression and Denies mood swings Physical Exam Vital Signs: Last Vital Signs Pulse 60 06/12/23 09:43 BP 158/72 H 06/12/23 09:43 BMI result Body Mass Index 29.6 Const General: comfortable and no acute distress Orientation/consciousness: patient oriented x3 Neck Neck: Yes no lymphadenopathy Resp Auscultation: clear to auscultation bilaterally Cardio Rhythm: regular rhythm GI Other: Large abdominal wall hernia, with obvious loss of domain, bowel loops palpable Palpation (GI): Soft to palpation, nontender and no guarding Neuro General: patient oriented x3 Assessment & Plan Assessment & Plan (1) Positive colorectal cancer screening using Cologuard test: Code(s): R19.5 - Other fecal abnormalities Plan: His Cologuard test was positive so I told him that it may be best to at least attempt to do a full colonoscopy. I did have a long talk with him as has a very large abdominal wall hernia with loss of domain. I reviewed with him the technique of colonoscopy under monitored anesthesia care. I explained to him that there is the higher possibility of an incomplete colonoscopy if we encounter resistance to the scope and looping due to his abdominal wall hernia. He understands the risks of operation as well especially in view of the involvement of the bowel loops including colon in the hernia. I discussed the other risks including but not limited to be bleeding infections, as well as the benefits and alternatives. His ex- who was with him was familiar with CT colonography. She felt that this would be a better option at this time as it is not invasive. She wants to go with a CT colonography for now before proceeding with colonoscopy. I will set this up therefore and I will see him in the office after his CT colonography. He also mentioned that he is going to see Dr. Addison in June 2023 to finalize plans for repair of his large abdominal hernia. Orders: Orders CT colonography 06/12/23 R19.5 - Other fecal abnormalities Medications: New sodium,potassium,mag sulfates 17.5-3.13-1.6 gram (Suprep Bowel Prep Kit) DILUTE; drink full amount early evening before AND next morning at least 2 hr before procedure; follow w 960 mL water PO 354 mL 0RF Coding Level of Care Code Est Pt Level 3 (51659) Diagnoses Positive colorectal cancer screening using Cologuard test R19.5
[2023-06-12 09:43] VITALS: BP 158/72; PULSE 60; BMI 29.6
== END 2023-06-12 10:04 | disposition home or self-care (01) ==
PROVIDERS: PCP Internal Medicine; Visit Provider Surgery
DX: R19.5 Other fecal abnormalities (principal)
CPT/HCPCS: 99213

== ENCOUNTER → 2023-06-12 09:42 | Outpatient (BNVA) | payer OTHER, SELFPAY | PROVIDERS: PCP Internal Medicine; Visit Provider Surgery | DX: R19.5 Other fecal abnormalities (principal) | CPT/HCPCS: 99212 ==

== ENCOUNTER 2023-06-12 12:09 | Outpatient (AMB) | payer OTHER, SELFPAY ==
--- NOTE | 2023-06-12 12:30 | A.OFFPC_ITS ---
Vital Signs 3 06/12/23 12:31 Height 5 ft 8 in Weight 195 lb BMI 29.6 BP 134/72 Blood Pressure Location Lt brachial Position Sitting Pulse 79 Pulse Source Pulse Oximeter Pulse Oximetry (%) 99 Oxygen Delivery Method Room Air Intake Visit Reasons: Follow Up Allergies morphine [MORPHINE] Allergy (Severe, Verified 06/12/23 09:50) hallucinations rosuvastatin Allergy (Intermediate, Verified 06/12/23 09:50) Rash Medication List - Last Reconciled 06/12/23 by Emmy Eubanks MD acetaminophen 1,000 mg (2 x 500 mg) PO QID PRN aspirin (Adult Aspirin Regimen) 81 mg PO DAILY atorvastatin 80 mg PO DAILY 90 days clotrimazole 1% 1 appl topical BID 4 weeks cyclobenzaprine 5 mg PO TID PRN 15 days hydrocodone-chlorpheniramine 10-8 mg/5 mL 5 mL PO Q12H PRN isosorbide mononitrate ER 30 mg PO DAILY metformin 500 mg PO BIDWMEAL metoprolol succinate ER (Toprol XL) 25 mg PO DAILY nitroglycerin 0.4 mg sublingual Q5M PRN sodium,potassium,mag sulfates 17.5-3.13-1.6 gram (Suprep Bowel Prep Kit) DILUTE; drink full amount early evening before AND next morning at least 2 hr before procedure; follow w 960 mL water PO Tobacco use date assessed: 06/12/23 Dental Screening Dental Screen Date: 06/12/23 Did you have a dental visit in the last 12 months?: No Did you have a dental problem in the last 6 months where you did not have access to dental care?: No HPI Follow Up 2 HPI0 Details 63-year-old overweight male with the lar ge abdominal wall hernia being evaluated by the surgeon in [place], COPD diabetes mellitus, hypercholesterolemia, coronary artery disease, coming in for follow-up last seen in November 2022. Patient had blood work done showing diabetes mellitus. Patient is here for follow-up. Patient had positive colorectal cancer screening with Cologuard test and has been referred to the surgeon. But patient has opted for the CT colonography patient was seen at the cardiology clinic also March 2023 with a history of coronary artery disease status post non STEMI in 2015 stent placement to the RCA atopped smoking 17 months. indicrinate eating [facility] Medical History (Updated 06/12/23 @ 09:44 by Heladio Keen MD) Positive colorectal cancer screening using Cologuard test Lateral epicondylitis of left elbow Neck pain Impacted cerumen of right ear Tinea cruris COPD (chronic obstructive pulmonary disease) Abdominal wall hernia Tobacco abuse Obesity (BMI 30-39.9) Type 2 diabetes mellitus with hyperglycemia Hypercholesterolemia Coronary artery disease Surgical History History of colostomy reversal History of colonoscopy Family History Father Past heart attack Cancer Maternal Uncle Myocardial infarction Mother No problems noted. Social History Housing: House Alcohol intake: current Alcohol intake frequency: a few times a month Alcohol type: wine Patient Tobacco Use Status: Former Tobacco user Tobacco use type: Cigarette Cigarette Packs Per Day: 0.5 Cigarettes Per Day: 10 Years Smoked: 12 years old started e-Cigarette/Vaping Use: Never Used Second Hand Smoke Exposure: No service: No Current occupational status: unemployed and disabled Cognitive needs: No Hearing needs: No Vision needs: No Questionnaire Thrive Questionnaire Date Thrive assessed: 08/25/22 AUDIT C Alcohol Use Questionnaire (AUDIT-C) 1. How often do you have a drink containing alcohol?: Monthly or less 2. How many drinks containing alcohol do you have on a typical day when you are drinking?: 1 or 2 3. How often do you have six or more drinks on one occasion?: Never Total Score: 1 Score Reviewed/Action Taken: Yes GORDO-7 AMB Questionnaire GORDO-7 Date GORDO - 7 assessed: 12/19/22 Source: Developed by Drs. Jeffy Riddle, Hailey Reynolds, Triston Melendez and colleagues, with an educational lu from [employer]. Physical exam (Primary Care) Vital Signs: Last Vital Signs Pulse 79 06/12/23 12:31 BP 134/72 06/12/23 12:31 Pulse Ox 99 06/12/23 12:31 Oxygen Delivery Method Room Air 06/12/23 12:31 BMI result Body Mass Index 29.6 Tobacco/Smoking Status: Tobacco use Status Tobacco use date assessed 12/18/23 12/18/23 12:37 Patient Tobacco Use Status Former Tobacco user 06/12/23 12:33 Tobacco use type Cigarette 06/12/23 12:33 e-Cigarette/Vaping Use Never Used 06/12/23 12:33 Thrive Assessment: Date of Thrive Assessment Date Thrive assessed 08/25/22 06/12/23 12:33 Const General: alert; No acute distress Eyes Conjunctivae: conjunctivae normal Resp Auscultation: clear to auscultation bilaterally Cardio Rate: regular rate Rhythm: regular rhythm GI Other: Irregularly-shaped abdomen with hernia on left side Abdomen image: 2 1. Large Irregular hernia on the abdomen Extrem General: Yes normal to inspection and No edema Assessment and Plan Assessment & Plan (1) Type 2 diabetes mellitus with hyperglycemia: Comment: Dr. Mast Code(s): E11.65 - Type 2 diabetes mellitus with hyperglycemia Qualifiers: Diabetes mellitus computer terminal operator insulin use: without mcc use Qualified Code(s): E11.65 - Type 2 diabetes mellitus with hyperglycemia Plan: Decrease the amount of carbohydrate intake, pasta, bread, rice and potatoes are all sugar and that is aside from all the sweet stuff, remember that fruits are good but they are Sweet also. Hemoglobin A1c goal of less than 6.5. Patient is on diet control. (2) Hypercholesterolemia: Code(s): E78.00 - Pure hypercholesterolemia, unspecified Plan: Avoid fried foods, chicken skin, eggs, butter margarine, pastries and meat. Be it pork or beef they have a lot of cholesterol LDL goal of less than 70 and triglyceride of less than 150 patient presently on atorvastatin 80 mg once a day (3) Coronary artery disease: Comment: Stent May 2015 echo normal September 2018 Code(s): I25.10 - Atherosclerotic heart disease of [place] coronary artery without angina pectoris Qualifiers: Associated angina: without angina Coronary Disease-Associated Artery/Lesion type: [place] artery [place] vs. transplanted heart: [place] heart Qualified Code(s): I25.10 - Atherosclerotic heart disease of [place] coronary artery without angina pectoris Plan: Control the cholesterol, weight, blood pressure, diabetes continue with aspirin 81 mg once a day (4) Abdominal wall hernia: Comment: History Perforated bowel, perforated diverticulum Code(s): K43.9 - Ventral hernia without obstruction or gangrene Plan: Patient is being considered for surgery but advised to lose the weight (5) COPD (chronic obstructive pulmonary disease): Comment: Severe obstructive airway partial response PFT April 2019 Code(s): J44.9 - Chronic obstructive pulmonary disease, unspecified Qualifiers: COPD type: emphysema Emphysema type: unspecified Qualified Code(s): J 43.9 - Emphysema, unspecified Plan: Stable (6) Overweight (BMI 25.0-29.9): Code(s): E66.3 - Overweight Plan: Diet and exercise (7) Positive colorectal cancer screening using Cologuard test: Code(s): R19.5 - Other fecal abnormalities Plan: Patient has seen the surgeon for colonoscopy but to has opted to have the CT colonography Medications: New 2 metformin 500 mg PO BIDWMEAL 60 tabs 3RF E11.65 - Type 2 diabetes mellitus with hyperglycemia Refilled 2 atorvastatin 80 mg PO DAILY 90 days 90 tabs 3RF Discontinued 2 varenicline Discontinued Reason: Ancillary Entered New Order 1 mg PO BID 56 tabs 0RF Z87.891 - Personal history of nicotine dependence Coding Level of Care Code Est Pt Level 4 (42334) Diagnoses Type 2 diabetes mellitus with hyperglycemia, without long-term current use of insulin E11.65 Diabetes mellitus mcc insulin use: without computer terminal operator use Hypercholesterolemia E78.00 Coronary artery disease involving [place] coronary artery of [place] heart without angina pectoris I25.10 Associated angina: without angina Coronary Disease-Associated Artery/Lesion type: [place] artery [place] vs. transplanted heart: [place] heart Abdominal wall hernia K43.9 Pulmonary emphysema, unspecified emphysema type J43.9 COPD type: emphysema Emphysema type: unspecified Overweight (BMI 25.0-29.9) E66.3 Positive colorectal cancer screening using Cologuard test R19.5
[2023-06-12 12:31] VITALS: BP 134/72; PULSE 79; O2SAT 99; BMI 29.6
== END 2023-06-12 13:13 | disposition home or self-care (01) ==
PROVIDERS: PCP Internal Medicine; Visit Provider Internal Medicine
DX: E11.65 Type 2 diabetes mellitus with hyperglycemia (principal); J43.9 Emphysema, unspecified; E78.00 Pure hypercholesterolemia, unspecified; I25.10 Atherosclerotic heart disease of native coronary artery without angina pectoris; K43.9 Ventral hernia without obstruction or gangrene; E66.3 Overweight; R19.5 Other fecal abnormalities
CPT/HCPCS: 99214

== ENCOUNTER 2023-06-26 13:38 | Emergency (ER) | payer OTHER, SELFPAY ==
[2023-06-26 13:47] VITALS: BP 133/69; PULSE 71; RESP 20; TEMP 36.2; O2SAT 97; BMI 29.4
--- NOTE | 2023-06-26 13:52 | ED_ITS ---
HPI - Abdominal Pain General Chief Complaint: Abdominal Pain Stated Complaint: Abd pain Time Seen by Provider: 06/26/23 21:14 Source: patient Mode of arrival: ambulatory Limitations: no limitations History of Present Illness HPI narrative: Patient is a 63 year old assigned male at with a history of large abdominal herniation presenting to the emergency department today with abdominal pain and concern that he has sepsis. Patient states that he has previously had issues where his abdomen has hurt and he has become septic. Patient states that he has an extensive surgical history and has an outpatient CT scan scheduled with Dr. Keen. Patient states that he is passing gas and not vomiting. Patient denies any dizziness, lightheadedness, nausea, vomiting, fever, chills, blurry vision, double vision, loss of vision, chest pain, difficulty breathing, shortness of breath, back pain, night sweats, pain with urination, increased urinary frequency, increased urinary urgency, blood in his urine or stool, syncope or a near syncopal episode, recent trauma or falls, bowel incontinence, bladder incontinence, bowel retention, bladder retention, or any other complaints at this time. MD elicited complaint: abdominal pain Onset (ago): hour(s) (4) Pain Consistency: intermittent Location: RLQ Severity: mild Radiation: none Associated symptoms: denies other symptoms Related Data Home Medications Medication Instructions Recorded Confirmed aspirin 81 mg tablet,delayed 81 mg PO DAILY 04/23/20 06/12/23 release (Adult Aspirin Regimen) isosorbide mononitrate 30 mg 30 mg PO DAILY 04/23/20 06/12/23 tablet,extended release 24 hr nitroglycerin 0.4 mg sublingual 0.4 mg sublingual Q5M PRN 04/23/20 06/12/23 tablet metoprolol succinate 25 mg 25 mg PO DAILY 04/05/22 06/12/23 tablet,extended release 24 hr (Toprol XL) Previous Rx's Medication Instructions Recorded clotrimazole 1 % topical cream 1 appl topical BID 4 weeks #45 09/29/20 grams acetaminophen 500 mg tablet 1,000 mg (2 x 500 mg) PO QID PRN 10/04/22 pain #30 tabs cyclobenzaprine 5 mg tablet 5 mg PO TID PRN muscle spasm 15 03/27/23 days #30 tabs hydrocodone 10 mg-chlorpheniramine 5 ml PO Q12H PRN cold symptoms #70 04/06/23 8 mg/5 mL oral susp extend.rel 12hr mL atorvastatin 80 mg tablet 80 mg PO DAILY 90 days #90 tabs 06/12/23 metformin 500 mg tablet 500 mg PO BIDWMEAL #60 tabs 06/12/23 sodium,potassium,mag sulfates 17.5 See Rx Instructions PO .COMPLEX 06/12/23 gram-3.13 gram-1.6 gram oral soln #354 mL (Suprep Bowel Prep Kit) Allergies Allergy/AdvReac Type Severity Reaction Status Date / Time morphine [MORPHINE] Allergy Severe hallucinati Verified 06/26/23 13:49 ons rosuvastatin Allergy Intermediate Rash Verified 06/26/23 13:49 Review of Systems Constitutional: Reports no additional constitutional complaints, Denies chills, Denies fever(s) and Denies night sweats Eyes: Reports no additional eye complaints, Denies blurry vision, Denies change in vision, Denies diplopia, Denies eye discharge, Denies loss of vision and Denies eye pain Denies dizziness Cardiovascular: Reports no additional cardiovascular complaints, Denies chest pain, Denies lightheadedness, Denies Loss of Consciousness and Denies dyspnea Respiratory: Reports no additional respiratory complaints and Denies dyspnea Gastrointestinal: Reports no additional gastrointestinal complaints, Reports abdominal pain, Denies melena, Denies hematochezia, Denies change in bowel habits and Denies change in stool character Genitourinary: Reports no additional male genitourinary complaints, Denies hematuria, Denies oliguria, Denies difficulty urinating, Denies dysuria, Denies urinary frequency, Denies urinary hesitancy, Denies urinary incontinence and Denies urinary urgency Musculoskeletal: Reports no additional musculoskeletal complaints, Denies numbness and Denies tingling Denies dizziness, Denies loss of vision, Denies numbness and Denies tingling Psychiatric: Reports no additional psychiatric complaints Endocrine: Reports no additional endocrine complaints Hematologic/Lymphatic: Reports no additional hematologic/lymphatic complaints Allergic/Immunologic: Reports no additional allergic/immunologic complaints PMFSH Past Medical History Attestation statement: The following information was validated with the patient. Source: old records reviewed and nursing notes reviewed Onset Date is defined in the Problem List Problems that require an onset date and time if occurred within 24 hrs of arrival to the ED Aortic Dissection and Rupture; Neurologic impairment; Cardiopulmonary Arrest; Endotracheal Intubation; Insertion or Replacement of Mechanical Circulatory Assist Device Medical History Positive colorectal cancer screening using Cologuard test Lateral epicondylitis of left elbow Neck pain Impacted cerumen of right ear Tinea cruris COPD (chronic obstructive pulmonary disease) Abdominal wall hernia Tobacco abuse Obesity (BMI 30-39.9) Type 2 diabetes mellitus with hyperglycemia Hypercholesterolemia Coronary artery disease Surgical History History of colostomy reversal History of colonoscopy Family History Family History Father Past heart attack Cancer Maternal Uncle Myocardial infarction Mother No problems noted. Social History Social History Housing: House Alcohol intake: current Alcohol intake frequency: a few times a month Alcohol type: wine Patient Tobacco Use Status: Former Tobacco user Tobacco use type: Cigarette Cigarette Packs Per Day: 0.5 Cigarettes Per Day: 10 Years Smoked: 12 years old started e-Cigarette/Vaping Use: Never Used Second Hand Smoke Exposure: No Advance Directives: No Advance Directives Information Provided: No service: No Current occupational status: unemployed and disabled Cognitive needs: No Hearing needs: No Vision needs: No Physical Exam ED Vital Signs: Vital Signs - 24 hr 06/26/23 13:47 Temperature 97.1 F Pulse Rate 71 Respiratory Rate 20 Blood Pressure 133/69 Pulse Oximetry 97 Oxygen Delivery Method Room Air BMI result Body Mass Index 29.4 Const General: cooperative, no acute distress, alert and awake Nutritional Appearance: well nourished Orientation/consciousness: patient oriented x3 Limitations: no limitations [facility] Head: Yes normal to inspection and Yes atraumatic Ears: hearing grossly normal bilaterally and external ears normal General nose exam: Normal external nose present, no nasal discharge noted and no epistaxis Face and sinus: Yes normal facial exam, No abrasion and No laceration Mouth: Normal oral and palatal mucosa present, no drooling and no muffled voice Eyes General: appearance normal, both eyes and all related structures Periorbital: periorbital findings normal Eyelids: Yes eyelids normal Conjunctivae: conjunctivae normal Pupils: Equal, round and reactive pupils present EOM: EOMs intact bilaterally Neck Neck: Yes normal visual inspection, Yes full ROM and Yes no lymphadenopathy Chest Chest palpation & inspection: normal inspection of the chest Resp Effort & Inspection: normal respiratory effort and able to speak in complete sentences GI Other: very large abdominal hernia present to the left most portion of the abdomen Neuro General: patient oriented x3 and moves all extremities Cranial nerves: Yes Equal, round and reactive pupils present Cognition (Neuro): normal cognition Motor exam (neuro): 5/5 motor strength present throughout Sensory Exam: Normal double simultaneous stimulation for sensation Coordination: [id number] test normal Extrem General: Yes normal to inspection, Yes full ROM and Yes capillary refill normal Psych Appearance: grossly normal Mental Status: mental status grossly normal Affect: normal affect Attitude: cooperative Thought process: Normal thought process present Thought content: Normal thought content present Insight: Good insight present (Psych) Course Course Course Narrative: This is a rapid medical exam. deferred additional HPI, ROS, PE to primary provider. 63-year-old male with a history of an abdominal wall hernia here with reports of right lower quadrant abdominal pain since with no nausea vomiting, diarrhea. patient being followed outpatient by General surgery will obtain labs, UA Medical Decision Making Medical Decision Making MDM Narrative: Patient is a 63 year old assigned male at with a history of a large abdominal hernia presenting to the emergency department today with right sided abdomen pain and concerns of sepsis. Patient's physical exam showed his chronic hernia but was otherwise unremarkable. Patient's blood work was unremarkable. Patient's urine showed no acute process. I explained my physical exam findings as well as all test results to the patient. I answered all questions asked by the patient. I discussed wanting to obtain a CT abdomen pelvis with PO and IV contrast. Patient stated that he does not want to wait to have that test done at this time because he has it scheduled for outpatient. Patient stated that he would like to be discharged because his blood work does not show sepsis. Patient is non-toxic appearing. PI stressed the importance of the patient taking his medication as prescribed. I stressed the importance of the patient following up with his primary care provider and his general surgeon. I stressed the importance of the patient returning to the emergency department immediately if his symptoms were to worsen or if he were to develop any dizziness, shortness of breath, difficulty breathing, chest pain, blurry vision, loss of vision, nausea, vomiting, abdominal pain, fever, chills, back pain, or any other complaints. Patient verbalized agreement and understanding with this treatment plan and discharge. Differential Diagnosis Differential Diagnoses: The differential diagnosis associated with the presentation includes Abdominal pain Diverticulitis Appendcitis Admission/Observation Consideration of admission/observation: Escalation of care including admission/observation considered Patient would have been admitted to the hospital had his work up had any findings where hospital admission was appropriate, his clinical presentation warranted hospital admission, and he hadn't requested to leave the department. Lab Data MDM Lab Attestation statement: I reviewed the patient's lab results. My interpretation of these studies and their corresponding values is that they are grossly normal. 06/26/23 14:02 06/26/23 14:02 Labs: Lab Results 06/26/23 06/26/23 Range/Units 14:02 16:24 WBC 9.2 (4.8-10.8) X10*3/uL RBC 5.53 (4.60-5.80) X10*6/uL Hgb 16.3 (14.0-18.0) g/dl Hct 48.6 (42.0-52.0) % MCV 87.9 (80.0-98.0) fL MCH 29.5 (27.0-33.0) pg MCHC 33.5 (31.0-36.0) g/dl RDW 12.4 (11.0-16.0) % Plt Count 204 (160-400) X10*3/uL MPV 9.3 L (9.4-12.4) fL Immature Gran % (Auto) 0.3 (0.0-0.4) % Neut % (Auto) 75.4 H (45-73) % Lymph % (Auto) 15.2 L (20-40) % [place] % (Auto) 7.2 (2-11) % Eos % (Auto) 1.5 (0-4) % Baso % (Auto) 0.4 (0-2) % Lymph # (Auto) 1.4 (1.2-4.9) X10*3/uL [place] # (Auto) 0.7 (0.1-1.2) X10*3/uL Eos # (Auto) 0.1 (0.0-0.4) X10*3/uL Baso # (Auto) 0.0 (0.0-0.2) X10*3/uL Abs Immat Gran (auto) 0.03 (0.00-0.03) X10*3/uL Absolute Neuts (auto) 6.9 (2.0-8.3) x10*3/uL Absolute Nucleated RBC 0.000 (0.0-0.012) X10*3/uL Nucleated RBC % (auto) 0.0 (0.0-0.2) /100WBC Sodium 139 (135-145) mmol/L Potassium 4.5 (3.3-5.1) mmol/L Chloride 107 (96-108) mmol/L Carbon Dioxide 24 (22-29) mmol/L Anion Gap 13 (12-20) BUN 15 (9-16) mg/dL Creatinine 1.04 (0.5-1.4) mg/dL Estim Creat Clear Calc 78.2 Estimated GFR > 60 Random Glucose 203 H (60-115) mg/dL Lactic Acid 1.5 (0.5-2.0) mmol/L Calcium 9.4 (8.4-10.2) mg/dL Total Bilirubin 0.6 (0.0-1.0) mg/dL Direct Bilirubin 0.2 (0.0-0.5) mg/dL AST 17 (5-37) U/L ALT 17 (0-40) U/L Alkaline Phosphatase 80 (39-117) U/L Total Protein 7.6 (6.5-8.0) g/dL Albumin 3.9 (3.5-5.0) g/dL Lipase 12 (8-78) U/L Urine Color Dark Yellow Urine Appearance Clear Urine pH 5.5 (5.0-9.0) Ur Specific [place] >= 1.030 H (1.005-1.025) Urine Protein Trace (Neg-Trace) mg/dL Urine Glucose (UA) >=1000 H (Negative) mg/dL Urine Ketones Trace (Negative) mg/dL Urine Blood Negative (Negative) Urine Nitrite Negative (Negative) Ur Leukocyte Esterase Negative (Negative) Urine RBC 0-2 (0-2) /HPF Urine WBC 0-5 (0-5) /HPF Ur Squamous Epith Cells 0-2 (0-2) /HPF Urine Bacteria None Seen (None Seen) Hyaline Casts 0-2 (0-2) /LPF Tests considered The following testing was considered but not selected: Please see MDM Rationale for discussion around CT abdomen pelvis PO + IV contrast. Discharge Plan Discharge Clinical Impression: Abdominal pain Patient Disposition: Home, Self-Care Instructions: Abdominal Pain (ED) Additional Instructions: Follow up with your primary care provider and a general surgeon. Return to the emergency department immediately if your symptoms worsen or if you develop any dizziness, shortness of breath, difficulty breathing, chest pain, blurry vision, loss of vision, nausea, vomiting, abdominal pain, fever, chills, back pain, or any other complaints. Prescriptions: No Action cyclobenzaprine 5 mg tablet 5 mg PO TID PRN (Reason: muscle spasm) 15 Days Qty: 30 3RF hydrocodone-chlorpheniramine 10-8 mg/5 mL suspension,extended rel 12 hr 5 ml PO Q12H PRN (Reason: cold symptoms) Qty: 70 0RF acetaminophen 500 mg tablet 1,000 mg PO QID PRN (Reason: pain) Qty: 30 0RF isosorbide mononitrate 30 mg tablet extended release 24 hr 30 mg PO DAILY nitroglycerin 0.4 mg tablet, sublingual 0.4 mg sublingual Q5M PRN Rx Instructions: do not exceed 3 doses per episode aspirin [Adult Aspirin Regimen] 81 mg tablet,delayed release (DR/EC) 81 mg PO DAILY metoprolol succinate [Toprol XL] 25 mg tablet extended release 24 hr 25 mg PO DAILY clotrimazole 1 % cream 1 appl topical BID 28 Days Qty: 45 0RF atorvastatin 80 mg tablet 80 mg PO DAILY 90 Days Qty: 90 3RF metformin 500 mg tablet 500 mg PO BIDWMEAL Qty: 60 3RF sodium,potassium,mag sulfates [Suprep Bowel Prep Kit] 17.5-3.13-1.6 gram recon soln See Rx Instructions PO .COMPLEX Qty: 354 0RF Rx Instructions: DILUTE; drink full amount early evening before AND next morning at least 2 hr before procedure; follow w 960 mL water PO Referrals: [facility] [place] [Provider Group] Po,Emmy Hogan MD [Primary Care Provider] - Print Language: Syriac
[2023-06-26 14:06] LABS: MANUAL DIFF FLAG NO
[2023-06-26 14:09] LABS: Basophils Percent Auto 0.4 % (0-2); Eosinophils Absolute Auto 0.1 X10*3/uL (0.0-0.4); Eosinophils Percent Auto 1.5 % (0-4); Hematocrit 48.6 % (42.0-52.0); Hemoglobin 16.3 g/dl (14.0-18.0); Imm Gran Abs Auto 0.03 X10*3/uL (0.00-0.03); Imm Gran Pct Auto 0.3 % (0.0-0.4); Lymphocytes Absolute Auto 1.4 X10*3/uL (1.2-4.9); Lymphocytes Percent Auto 15.2 % (20-40); Mean Corpuscular HGB Conc 33.5 g/dl (31.0-36.0); Mean Corpuscular Hemoglobin 29.5 pg (27.0-33.0); Mean Corpuscular Volume 87.9 fL (80.0-98.0); Mean Platelet Volume 9.3 fL (9.4-12.4); Monocytes Absolute Auto 0.7 X10*3/uL (0.1-1.2); Monocytes Percent Auto 7.2 % (2-11); Neutrophils Absolute Auto 6.9 x10*3/uL (2.0-8.3); Neutrophils Percent Auto 75.4 % (45-73); Platelet Count 204 X10*3/uL (160-400); Red Blood Count 5.53 X10*6/uL (4.60-5.80); Red Cell Distribution Width 12.4 % (11.0-16.0); White Blood Count 9.2 X10*3/uL (4.8-10.8)
[2023-06-26 14:17] LABS: Lactic Acid 1.5 mmol/L (0.5-2.0)
[2023-06-26 14:25] LABS: Alanine Aminotransferase 17 U/L (0-40); Albumin Level 3.9 g/dL (3.5-5.0); Alkaline Phosphatase 80 U/L (39-117); Anion Gap 13 (12-20); Aspartate Amino Transferase 17 U/L (5-37); Bilirubin Direct 0.2 mg/dL (0.0-0.5); Bilirubin Total 0.6 mg/dL (0.0-1.0); Blood Urea Nitrogen 15 mg/dL (9-16); Calcium 9.4 mg/dL (8.4-10.2); Carbon Dioxide 24 mmol/L (22-29); Chloride 107 mmol/L (96-108); Creatinine Clr Calc Pharmacy 78.2; Estimated Glomerular Filt Rate > 60; Glucose Random 203 mg/dL (60-115); Lipase 12 U/L (8-78); Potassium 4.5 mmol/L (3.3-5.1); Sodium 139 mmol/L (135-145); Total Protein 7.6 g/dL (6.5-8.0)
--- NOTE | 2023-06-26 16:25 | MHC.EDTECH ---
Patient urine sample collected and sent to lab .
[2023-06-26 16:41] LABS: Appearance Urine Clear; Color Urine Dark Yellow; Glucose Urine UA >=1000 mg/dL (Negative); Leukocyte Esterase Urine Negative (Negative); Nitrite Urine Negative (Negative); PH 5.5 (5.0-9.0); Specific Gravity - Urine >= 1.030 (1.005-1.025); UMIC TRIGGER UACC YES; Urine Blood Negative (Negative); Urine Ketones Trace mg/dL (Negative); Urine Protein Trace mg/dL (Neg-Trace)
[2023-06-26 17:35] LABS: Bacteria Urine None Seen (None Seen); Hyaline Casts Urine 0-2 /LPF (0-2); RBC Urine 0-2 /HPF (0-2); Squamous Epithelial Cell Urine 0-2 /HPF (0-2); WBC Urine 0-5 /HPF (0-5)
[2023-06-26 21:15] VITALS: BP 161/89; PULSE 78; RESP 18; TEMP 36.8; O2SAT 96
== END 2023-06-26 21:21 | disposition home or self-care (01) ==
PROVIDERS: Nurse Practitioner Family; Emergency Provider Internal Medicine; PCP Internal Medicine
DX: R10.31 Right lower quadrant pain (principal); E11.9 Type 2 diabetes mellitus without complications; E78.00 Pure hypercholesterolemia, unspecified; Z87.891 Personal history of nicotine dependence; K76.0 Fatty (change of) liver, not elsewhere classified; J44.9 Chronic obstructive pulmonary disease, unspecified; Z79.82 Long term (current) use of aspirin; Z79.02 Long term (current) use of antithrombotics/antiplatelets; Z79.84 Long term (current) use of oral hypoglycemic drugs; Z79.899 Other long term (current) drug therapy
CPT/HCPCS: 36415; 80048; 80076; 81001; 83605; 83690; 85025; 99283

== ENCOUNTER 2023-08-01 07:44 | Outpatient (REF) | payer OTHER, SELFPAY ==
--- NOTE | ~2023-08-01 | CT_ITS ---
EXAMINATION: CT COLONOGRAPHY CLINICAL INFORMATION: Positive colorectal screening. COMPARISON: 10/04/2022 CT scan TECHNIQUE: Bowel preparation: Suboptimal with significant residual stool. Colonic distention: CO2 mechanical insufflator used via enema tube with suboptimal distention. Acquisition: Low dose imaging targeted to colonic was performed in the supine and prone positions. Procedure: The procedure was well tolerated. Review: The acquired images were reviewed in axial, coronal and sagittal planes. Additional 3-D fly through images were reviewed at an independent workstation. This CT examination was performed using dose optimization techniques as appropriate, variously including the following: *Automated exposure control *Adjustment of mA and/or kV according to patient size (this includes techniques or standardized protocols for targeted exams where dose is matched to indication/reason for exam; i.e. extremities or head) *Use of iterative reconstruction technique DLP: 463 mGy-cm FINDINGS: Colonic findings: Unfortunately evaluation of the colon is limited due to significant residual stool and subsequent suboptimal gaseous distention in portions of the redundant colon. I do not appreciate any significant colonic mass lesion or significant colonic polyp within the colon is able to be adequately visualized. There are extensive colonic diverticula seen but no obvious colonic wall thickening or pericolonic inflammatory change to suggest diverticulitis. Anastomotic staple line in the sigmoid colon is noted. Transverse colon extends into the large ventral hernia. Additional anastomotic staple line is seen in transverse colon. The cecum appears to be contained within this large hernia sac but not well delineated. Additional small bowel anastomotic staple line seen within a portion of small bowel within the hernia sac as well. Non-colonic findings: There is a very large left-sided abdominal wall hernia containing significant amount of small bowel and colon. There is asymmetric elevation of the left hemidiaphragm with a posterior medial diaphragmatic hernia likely representing a small [place] hernia containing part peritoneal fat and the left adrenal gland. Extensive vascular calcification. Degenerative changes in the spine. CT/CT colonography IMPRESSION: 1. Unfortunately the examination is limited due to significant residual stool and suboptimal gaseous distention of portions of the colon. 2. There are extensive colonic diverticula but no obvious colonic wall thickening or pericolonic inflammatory changes to suggest diverticulitis. 3. No discrete colonic mass lesion or suspicious colonic polyp. 4. There is a large left-sided abdominal wall hernia containing portions of the colon and small bowel as well as portions of the cecum and small bowel within the hernia sacs. 5. There is asymmetric elevation of the left hemidiaphragm with a posterior medial diaphragmatic hernia likely representing a small [place] hernia containing part peritoneal fat and the left adrenal gland.
== END 2023-08-01 07:45 | disposition home or self-care (01) ==
LOC: HO.CT 07:44
PROVIDERS: PCP Internal Medicine; Visit Provider Surgery
DX: R19.5 Other fecal abnormalities (principal)
CPT/HCPCS: 74261

== ENCOUNTER 2023-08-10 08:52 | Outpatient (AMB) | payer OTHER, SELFPAY ==
[2023-08-10 08:53] VITALS: BP 129/66; PULSE 71; BMI 28.7
--- NOTE | 2023-08-10 08:53 | MHC.OFFVIS ---
Intake Vital Signs 08/10/23 08:53 Height 5 ft 8 in Weight 189 lb BMI 28.7 BP 129/66 Blood Pressure Location Rt brachial Position Sitting Pulse 71 Intake Visit Reasons: s/p CT Colonography, results Intake Note: This patient presents for a follow-up for Ct- Colonography results. Pt c/o; reports no complaints. 08/01/2023; CT Colonography White Sugar Boiler Required: No Accompanied by: Self / Same As Patient Allergies morphine [MORPHINE] Allergy (Severe, Verified 08/10/23 09:00) hallucinations rosuvastatin Allergy (Intermediate, Verified 08/10/23 09:00) Rash Medication List - Last Reconciled 08/10/23 by Heladio Keen MD acetaminophen 1,000 mg (2 x 500 mg) PO QID PRN aspirin (Adult Aspirin Regimen) 81 mg PO DAILY atorvastatin 80 mg PO DAILY 90 days clotrimazole 1% 1 appl topical BID 4 weeks cyclobenzaprine 5 mg PO TID PRN 15 days hydrocodone-chlorpheniramine 10-8 mg/5 mL 5 mL PO Q12H PRN isosorbide mononitrate ER 30 mg PO DAILY metformin 500 mg PO BIDWMEAL metoprolol succinate ER (Toprol XL) 25 mg PO DAILY nitroglycerin 0.4 mg sublingual Q5M PRN sodium,potassium,mag sulfates 17.5-3.13-1.6 gram (Suprep Bowel Prep Kit) DILUTE; drink full amount early evening before AND next morning at least 2 hr before procedure; follow w 960 mL water PO HPI s/p CT Colonography, results HPI Details He is here to discuss his CT colonography. He says that he was uncomfortable when the colonography was done because of all the air that was insufflated Other than that, he denies any new complaints. He has good oral intake. FOR[facility]LY [facility] Medical History Positive colorectal cancer screening using Cologuard test Lateral epicondylitis of left elbow Neck pain Impacted cerumen of right ear Tinea cruris COPD (chronic obstructive pulmonary disease) Abdominal wall hernia Tobacco abuse Obesity (BMI 30-39.9) Type 2 diabetes mellitus with hyperglycemia Hypercholesterolemia Coronary artery disease Surgical History History of colostomy reversal History of colonoscopy Family History Father Past heart attack Cancer Maternal Uncle Myocardial infarction Mother No problems noted. Social History Housing: House Alcohol intake: current Alcohol intake frequency: a few times a month Alcohol type: wine Patient Tobacco Use Status: Former Tobacco user Tobacco use type: Cigarette Cigarette Packs Per Day: 0.5 Cigarettes Per Day: 10 Years Smoked: 12 years old started e-Cigarette/Vaping Use: Never Used Second Hand Smoke Exposure: No service: No Current occupational status: unemployed and disabled Cognitive needs: No Hearing needs: No Vision needs: No Review of Systems Const Denies chills and Denies fever(s) Card Denies chest pain, Denies dyspnea and Denies dyspnea on exertion Resp Denies cough, Denies dyspnea and Denies dyspnea on exertion GI Denies hematochezia and Denies change in bowel habits Denies hematuria and Denies difficulty urinating Musc Denies back pain and Denies limited range of motion Neuro Denies focal weakness and Denies convulsions Psych Denies depression and Denies mood swings Physical Exam Vital Signs: Last Vital Signs Pulse 71 08/10/23 08:53 BP 129/66 08/10/23 08:53 BMI result Body Mass Index 28.7 Const General: comfortable and no acute distress Resp Effort & Inspection: normal respiratory effort Cardio Rate: regular rate GI Other: Very large hernia in the abdomen mostly on left, with obvious loss of domain, bowel loops within the hernia Palpation (GI): Soft to palpation Assessment & Plan Assessment & Plan (1) Positive colorectal cancer screening using Cologuard test: Code(s): R19.5 - Other fecal abnormalities Plan: He had a CT colonography and although was no obvious polyps or any lesions seen, the this was considered suboptimal because of some residual stool. I told him that because of the above, I am not comfortable not going further in view of his positive Cologuard test. The next step would be a full colonoscopy. However, he has a very large hernia with loss of domain. Parts of the colon including the transverse on the cecum are within the hernia itself. This presents a significant challenge with the colonoscopy as advancement of the scope may be very difficult and is associated with colon injury He is also scheduled to see his hernia specialist Dr. Addison next week. He is being prepared for hernia repair which is anticipated to be extensive and difficult as well I told him that I will discuss with Dr. Addison what the actual plan is as he may need to have a full colonoscopy prior to hernia repair. I told Igor that we may have to send him to a tertiary care center for this colonoscopy in view of his very large hernia involving significant amounts of colon loops. Coding Level of Care Code Est Pt Level 4 (49998) Diagnoses Positive colorectal cancer screening using Cologuard test R19.5
== END 2023-08-10 09:25 | disposition home or self-care (01) ==
PROVIDERS: PCP Internal Medicine; Visit Provider Surgery
DX: R19.5 Other fecal abnormalities (principal)
CPT/HCPCS: 99214

== ENCOUNTER → 2023-08-10 08:52 | Outpatient (BNVA) | payer OTHER, SELFPAY | PROVIDERS: PCP Internal Medicine; Visit Provider Surgery | DX: R19.5 Other fecal abnormalities (principal) | CPT/HCPCS: 99212 ==

== ENCOUNTER 2023-09-11 10:48 | Outpatient (AMB) | payer OTHER, SELFPAY ==
--- NOTE | 2023-09-11 11:05 | MHC.PC.OV ---
Vital Signs 09/11/23 11:14 Height 5 ft 8 in Weight 188 lb BMI 28.6 BP 138/70 Blood Pressure Location Lt brachial Position Sitting Pulse 70 Pulse Source Pulse Oximeter Pulse Oximetry (%) 97 Oxygen Delivery Method Room Air Intake Visit Reasons: DM Intake Note: Patient is here to follow up on DM Manager Development Required: No Allergies morphine [MORPHINE] Allergy (Severe, Verified 09/11/23 11:20) hallucinations rosuvastatin Allergy (Intermediate, Verified 09/11/23 11:20) Rash metformin Adverse Reaction (Intermediate, Unverified 09/11/23 11:43) skin reaction Medication List - Last Reconciled 09/11/23 by Emmy Eubanks, acetaminophen 1,000 mg (2 x 500 mg) PO QID PRN aspirin (Adult Aspirin Regimen) 81 mg PO DAILY atorvastatin 80 mg PO DAILY 90 days clotrimazole 1% 1 appl topical BID 4 weeks cyclobenzaprine 5 mg PO TID PRN 15 days hydrocodone-chlorpheniramine 10-8 mg/5 mL 5 mL PO Q12H PRN isosorbide mononitrate ER 30 mg PO DAILY metoprolol succinate ER (Toprol XL) 25 mg PO DAILY nitroglycerin 0.4 mg sublingual Q5M PRN Tobacco use date assessed: 09/11/23 Dental Screening Dental Screen Date: 09/11/23 HPI DM HPI Details 63-year-old overweight male with a history of diabetes mellitus hypercholesterolemia coronary artery disease COPD abdominal wall hernia last seen in May 2023 patient had a positive colorectal cancer screening for Cologuard and was advised CT colonography( Unfortunately the examination is limited due to significant residual stool and suboptimal gaseous distention of portions of the colon. 2. There are extensive colonic diverticula but no obvious colonic wall thickening or pericolonic inflammatory changes to suggest diverticulitis. 3. No discrete colonic mass lesion or suspicious colonic polyp. 4. There is a large left-sided abdominal wall hernia containing portions of the colon and small bowel as well as portions of the cecum and small bowel within the hernia sacs. 5. There is asymmetric elevation of the left hemidiaphragm with a posterior medial diaphragmatic hernia likely representing a small [place] hernia containing part peritoneal fat and the left adrenal gland. Patient is here for follow-up . Patient has met with surgeon and is advised to get colonoscopy but with his anatomy and hernia problem patient was scheduled to see the hernia specialist 1st. seen Dr. L[place]ola hernia surgeon- but will ff up this monday- botox injection . Patient did not take metformin [facility] Medical History Positive colorectal cancer screening using Cologuard test Lateral epicondylitis of left elbow Neck pain Impacted cerumen of right ear Tinea cruris COPD (chronic obstructive pulmonary disease) Abdominal wall hernia Tobacco abuse Obesity (BMI 30-39.9) Type 2 diabetes mellitus with hyperglycemia Hypercholesterolemia Coronary artery disease Surgical History History of colostomy reversal History of colonoscopy Family History Father Past heart attack Cancer Maternal Uncle Myocardial infarction Mother No problems noted. Social History Housing: House Alcohol intake: current Alcohol intake frequency: a few times a month Alcohol type: wine Patient Tobacco Use Status: Former Tobacco user Tobacco use type: Cigarette Cigarette Packs Per Day: 0.5 Cigarettes Per Day: 10 Years Smoked: 12 years old started Packs Per Year: 0 Packs per year/per ci.00 e-Cigarette/Vaping Use: Never Used Second Hand Smoke Exposure: No service: No Current occupational status: unemployed and disabled Cognitive needs: No Hearing needs: No Vision needs: No Questionnaire PHQ-9 Over the last 2 weeks, how often have you been bothered by any of the following problems? 1. Little interest or pleasure in doing things: not at all 2. Feeling down, depressed, or hopeless: not at all 3. Trouble falling or staying asleep, or sleeping too much: not at all 4. Feeling tired or having little energy: not at all 5. Poor appetite or overeating: not at all 6. Feeling bad about yourself - or that you are a failure or have let yourself or your family down: not at all 7. Trouble concentrating on things, such as reading the newspaper or watching television: not at all 8. Moving or speaking so slowly that other people could have noticed. Or the opposite - being so fidgety or restless that you have been moving around a lot more than usual: not at all 9. Thoughts that you would be better off or of hurting yourself in some way: not at all Total score: 0 Depression Screening Interpretation: Negative Depression Screening Done: Yes Source: Developed by Drs. Jeffy Riddle, Hailey Reynolds, Triston Melendez and colleagues, with an educational lu from [employer]. Thrive Questionnaire Date Thrive assessed: 09/11/23 I am a: Patient What is your living situation today?: I have a steady place to live Within the past 12 months, did the food you bought not last and you didn't have the money to get more?: Never true Within the past 12 months, did you worry whether your food would run out before you got money to buy more?: Never true Do you have trouble paying for medicines?: No Do you have trouble getting transportation to medical appointments?: No Do you have trouble paying your heating and electricity bill?: No Do you have trouble taking care of your child, family member or friend?: No Do you have trouble with day-to-day activities such as bathing, preparing meals, shopping, managing finances, etc.?: No Are you currently unemployed and looking for a job?: No Are you interested in more education?: No THRIVE Score: 0 AUDIT C Alcohol Use Questionnaire (AUDIT-C) 1. How often do you have a drink containing alcohol?: Monthly or less 2. How many drinks containing alcohol do you have on a typical day when you are drinking?: 1 or 2 3. How often do you have six or more drinks on one occasion?: Never Total Score: 1 Score Reviewed/Action Taken: Yes GORDO-7 AMB Questionnaire GORDO-7 Date GORDO - 7 assessed: 09/11/23 Feeling nervous, anxious, or on edge: 0 = Not at all Not being able to stop or control worryin = Not at all Worrying too much about different things: 0 = Not at all Trouble relaxin = Not at all Being so restless that it is hard to sit still: 0 = Not at all Becoming easily annoyed or irritable: 0 = Not at all Feeling afraid as if something awful might happen: 0 = Not at all Total GORDO-7 score (0-4 normal; 5-9 mild; 10-14 moderate; 15-21 severe): 0 Source: Developed by Drs. Jeffy Riddle, Hailey Reynolds, Triston Melendez and colleagues, with an educational lu from [employer]. Physical exam (Primary Care) Vital Signs: Last Vital Signs Pulse 70 09/11/23 11:14 BP 138/70 09/11/23 11:14 Pulse Ox 97 09/11/23 11:14 Oxygen Delivery Method Room Air 09/11/23 11:14 BMI result Body Mass Index 28.6 Tobacco/Smoking Status: Tobacco use Status Tobacco use date assessed 09/11/23 09/11/23 11:23 Patient Tobacco Use Status Former Tobacco user 09/11/23 11:06 Tobacco use type Cigarette 09/11/23 11:06 e-Cigarette/Vaping Use Never Used 09/11/23 11:06 PHQ-9: PHQ-9 Score PHQ-9: Total score 0 09/11/23 11:23 Depression Screening Interpretation: Negative Thrive Assessment: Date of Thrive Assessment Date Thrive assessed 09/11/23 09/11/23 11:23 Const General: alert; No acute distress Eyes Conjunctivae: conjunctivae normal Resp Auscultation: clear to auscultation bilaterally Cardio Rate: regular rate Rhythm: regular rhythm Extrem General: Yes normal to inspection and No edema Results AMB Hemoglobin A1c AMB Hemoglobin A1c 6.8 % Last Edit by LOURDES Conley on 09/11/23 11:27 Results Reviewed Results Reviewed: Laboratory Last Values Hgb A1c (Clinic) 6.8 % (4.0-6.0) H 09/11/23 10:36 Assessment and Plan Assessment & Plan (1) Positive colorectal cancer screening using Cologuard test: Code(s): R19.5 - Other fecal abnormalities Plan: Patient has been meeting with the surgeon and has had a CT colonography done but colonoscopy is still advised. (2) Overweight (BMI 25.0-29.9): Code(s): E66.3 - Overweight Plan: Diet and exercise (3) Abdominal wall hernia: Comment: History Perforated bowel, perforated diverticulum Code(s): K43.9 - Ventral hernia without obstruction or gangrene Plan: Patient has a meeting with the surgeon. (4) Type 2 diabetes mellitus with hyperglycemia: Comment: Dr. Mast Code(s): E11.65 - Type 2 diabetes mellitus with hyperglycemia Qualifiers: Diabetes mellitus care home insulin use: without care home use Qualified Code(s): E11.65 - Type 2 diabetes mellitus with hyperglycemia Plan: Decrease the amount of carbohydrate intake, pasta, bread, rice and potatoes are all sugar and that is aside from all the sweet stuff, remember that fruits are good but they are Sweet also. Hemoglobin A1c goal of less than 6.5. Patient on metformin 500 mg twice a day (5) Hypercholesterolemia: Code(s): E78.00 - Pure hypercholesterolemia, unspecified Plan: Avoid fried foods, chicken skin, eggs, butter margarine, pastries and meat. Be it pork or beef they have a lot of cholesterol LDL goal of less than 70 and triglyceride of less than 150 on atorvastatin 80 mg once a day will need retesting (6) Coronary artery disease: Comment: Stent May 2015 echo normal September 2018 Code(s): I25.10 - Atherosclerotic heart disease of [place] coronary artery without angina pectoris Qualifiers: Coronary Disease-Associated Artery/Lesion type: [place] artery [place] vs. transplanted heart: [place] heart Associated angina: without angina Qualified Code(s): I25.10 - Atherosclerotic heart disease of [place] coronary artery without angina pectoris Plan: Control the cholesterol, weight, blood pressure, diabetes on aspirin (7) COPD (chronic obstructive pulmonary disease): Comment: Severe obstructive airway partial response PFT April 2019 Code(s): J44.9 - Chronic obstructive pulmonary disease, unspecified Qualifiers: COPD type: emphysema Emphysema type: unspecified Qualified Code(s): J43.9 - Emphysema, unspecified Plan: Continue with monitoring as the patient has not required any inhaler Orders: Orders AMB Hemoglobin A1c Today E11.65 - Type 2 diabetes mellitus with hyperglycemia Lipid Panel Today E78.00 - Pure hypercholesterolemia, unspecified Thyroid Stimulating Hormone Today E78.00 - Pure hypercholesterolemia, unspecified Free T4 (Free Thyroxine) Today E78.00 - Pure hypercholesterolemia, unspecified Comprehensive Met. Panel Today E78.00 - Pure hypercholesterolemia, unspecified Coding Level of Care Code Est Pt Level 4 (19217) Diagnoses Positive colorectal cancer screening using Cologuard test R19.5 Overweight (BMI 25.0-29.9) E66.3 Abdominal wall hernia K43.9 Type 2 diabetes mellitus with hyperglycemia, without long-term current use of insulin E11.65 Diabetes mellitus care home insulin use: without care home use Hypercholesterolemia E78.00 Coronary artery disease involving [place] coronary artery of [place] heart without angina pectoris I25.10 Coronary Disease-Associated Artery/Lesion type: [place] artery [place] vs. transplanted heart: [place] heart Associated angina: without angina Pulmonary emphysema, unspecified emphysema type J43.9 COPD type: emphysema Emphysema type: unspecified
[2023-09-11 11:14] VITALS: BP 138/70; PULSE 70; O2SAT 97; BMI 28.6
== END 2023-09-11 11:50 | disposition home or self-care (01) ==
PROVIDERS: PCP Internal Medicine; Visit Provider Internal Medicine
DX: E11.65 Type 2 diabetes mellitus with hyperglycemia (principal); J43.9 Emphysema, unspecified; R19.5 Other fecal abnormalities; E66.3 Overweight; K43.9 Ventral hernia without obstruction or gangrene; E78.00 Pure hypercholesterolemia, unspecified; I25.10 Atherosclerotic heart disease of native coronary artery without angina pectoris
CPT/HCPCS: 83036; 99214

== ENCOUNTER 2024-01-04 08:32 | Outpatient (AMB) | payer OTHER, SELFPAY ==
[2024-01-04 08:51] VITALS: BP 132/72; PULSE 75; O2SAT 98; BMI 26.0
--- NOTE | 2024-01-04 08:51 | MHC.PC.OV ---
Vital Signs 01/04/24 08:51 Height 5 ft 8 in Weight 171 lb BMI 26.0 BP 132/72 Blood Pressure Location Lt brachial Position Sitting Pulse 75 Pulse Source Pulse Oximeter Pulse Oximetry (%) 98 Oxygen Delivery Method Room Air Intake Visit Reasons: DM , Abd hernia Allergies morphine [MORPHINE] Allergy (Severe, Verified 01/04/24 08:52) hallucinations rosuvastatin Allergy (Intermediate, Verified 01/04/24 08:52) Rash metformin Adverse Reaction (Intermediate, Verified 01/04/24 08:52) skin reaction Medication List - Last Reconciled 01/04/24 by Emmy Eubanks MD atorvastatin 80 mg PO DAILY 90 days clotrimazole 1% 1 appl topical BID 4 weeks hydrocodone-chlorpheniramine 10-8 mg/5 mL 5 mL PO Q12H PRN isosorbide mononitrate ER 30 mg PO DAILY metoprolol succinate ER (Toprol XL) 25 mg PO DAILY nitroglycerin 0.4 mg sublingual Q5M PRN pantoprazole 40 mg PO BID Tobacco use date assessed: 11/09/23 Dental Screening Dental Screen Date: 09/11/23 HPI DM , Abd hernia HPI Details 63-year-old overweight male with diabetes mellitus coronary artery disease hypercholesterolemia COPD having history of a severe abdominal wall hernia coming in for follow-up. Patient did have the surgery already and is here for follow-up. Last seen in October 2023 review of the notes has seen Cardiology and had stress test October negative regadenoson stress test. surgery November 17, 2023 Dr. Addison in [place] had a complication of GI bleed endoscopy and placed on pantoprazole. [facility] Medical History (Updated 01/04/24 @ 09:18 by Emmy Eubanks MD) Positive colorectal cancer screening using Cologuard test Lateral epicondylitis of left elbow Neck pain Impacted cerumen of right ear Tinea cruris COPD (chronic obstructive pulmonary disease) Abdominal wall hernia Tobacco abuse Obesity (BMI 30-39.9) Type 2 diabetes mellitus with hyperglycemia Hypercholesterolemia Coronary artery disease Surgical History History of colostomy reversal History of colonoscopy Family History Father Past heart attack Cancer Maternal Uncle Myocardial infarction Mother No problems noted. Social History Housing: House Alcohol intake: current Alcohol intake frequency: a few times a month Alcohol type: wine Patient Tobacco Use Status: Former Tobacco user Tobacco use type: Cigarette Cigarette Packs Per Day: 0.5 Cigarettes Per Day: 10 Years Smoked: 12 years old started Packs Per Year: 0 Packs per year/per ci.00 e-Cigarette/Vaping Use: Never Used Second Hand Smoke Exposure: No service: No Current occupational status: unemployed and disabled Cognitive needs: No Hearing needs: No Vision needs: No Questionnaire PHQ-9 Over the last 2 weeks, how often have you been bothered by any of the following problems? 1. Little interest or pleasure in doing things: not at all 2. Feeling down, depressed, or hopeless: not at all 3. Trouble falling or staying asleep, or sleeping too much: not at all 4. Feeling tired or having little energy: not at all 5. Poor appetite or overeating: not at all 6. Feeling bad about yourself - or that you are a failure or have let yourself or your family down: not at all 7. Trouble concentrating on things, such as reading the newspaper or watching television: not at all 8. Moving or speaking so slowly that other people could have noticed. Or the opposite - being so fidgety or restless that you have been moving around a lot more than usual: not at all 9. Thoughts that you would be better off or of hurting yourself in some way: not at all Total score: 0 Depression Screening Interpretation: Negative Depression Screening Done: Yes Source: Developed by Drs. Jeffy Riddle, Hailey Reynolds, Triston Melendez and colleagues, with an educational lu from [email or web address]. Thrive Questionnaire Date Thrive assessed: 09/11/23 AUDIT C Alcohol Use Questionnaire (AUDIT-C) 1. How often do you have a drink containing alcohol?: Monthly or less 2. How many drinks containing alcohol do you have on a typical day when you are drinking?: 1 or 2 3. How often do you have six or more drinks on one occasion?: Never Total Score: 1 Score Reviewed/Action Taken: Yes GORDO-7 AMB Questionnaire GORDO-7 Date GORDO - 7 assessed: 09/11/23 Source: Developed by Drs. Jeffy Riddle, Hailey Reynolds, Triston Melendez and colleagues, with an educational lu from [email or web address]. Physical exam (Primary Care) Vital Signs: Last Vital Signs Pulse 75 01/04/24 08:51 BP 132/72 01/04/24 08:51 Pulse Ox 98 01/04/24 08:51 Oxygen Delivery Method Room Air 01/04/24 08:51 BMI result Body Mass Index 26.0 Tobacco/Smoking Status: Tobacco use Status Tobacco use date assessed 11/09/23 01/04/24 08:58 Patient Tobacco Use Status Former Tobacco user 01/04/24 08:58 Tobacco use type Cigarette 01/04/24 08:58 e-Cigarette/Vaping Use Never Used 01/04/24 08:58 PHQ-9: PHQ-9 Score PHQ-9: Total score 0 01/04/24 09:12 Depression Screening Interpretation: Negative Thrive Assessment: Date of Thrive Assessment Date Thrive assessed 09/11/23 01/04/24 08:58 Const General: alert; No acute distress Eyes Conjunctivae: conjunctivae normal Resp Auscultation: clear to auscultation bilaterally Cardio Rate: regular rate Rhythm: regular rhythm GI Inspection: Yes normal to inspection Skin Full body images: 1. incisional scar 10 inches vertical and 10 inches 2. 10 inches horzontal Extrem General: Yes normal to inspection and No edema Results AMB Hemoglobin A1c AMB Hemoglobin A1c 5.1 % Last Edit by Alysha Talley CMA on 01/04/24 09:14 Results Reviewed Results Reviewed: Laboratory Last Values Hgb A1c (Clinic) 5.1 % (4.0-6.0) 01/04/24 09:13 Assessment and Plan Assessment & Plan (1) Abdominal wall hernia: Comment: History Perforated bowel, perforated diverticulum S/p Repair 11/17/2023 Code(s): K43.9 - Ventral hernia without obstruction or gangrene Plan: Status post repair 10/2023 (2) COPD (chronic obstructive pulmonary disease): Comment: Severe obstructive airway partial response PFT April 2019 Code(s): J44.9 - Chronic obstructive pulmonary disease, unspecified Qualifiers: COPD type: emphysema Emphysema type: unspecified Qualified Code(s): J43.9 - Emphysema, unspecified Plan: Stable (3) Type 2 diabetes mellitus with hyperglycemia: Comment: Dr. Mast Code(s): E11.65 - Type 2 diabetes mellitus with hyperglycemia Qualifiers: Diabetes mellitus assistant terminal manager insulin use: without assistant terminal manager use Qualified Code(s): E11.65 - Type 2 diabetes mellitus with hyperglycemia Plan: Decrease the amount of carbohydrate intake, pasta, bread, rice and potatoes are all sugar and that is aside from all the sweet stuff, remember that fruits are good but they are Sweet also. Hemoglobin A1c goal of less than 6.5. Presently diet controlled (4) Coronary artery disease: Comment: Stent May 2015 echo normal September 2018 Code(s): I25.10 - Atherosclerotic heart disease of [place] coronary artery without angina pectoris Qualifiers: Associated angina: without angina Coronary Disease-Associated Artery/Lesion type: [place] artery [place] vs. transplanted heart: [place] heart Qualified Code(s): I25.10 - Atherosclerotic heart disease of [place] coronary artery without angina pectoris Plan: Control the cholesterol, weight, blood pressure, diabetes on Aspirin held due to GI bleed (5) Hypercholesterolemia: Code(s): E78.00 - Pure hypercholesterolemia, unspecified Plan: Avoid fried foods, chicken skin, eggs, butter margarine, pastries and meat. Be it pork or beef they have a lot of cholesterol LDL goal of less than 70 and triglyceride of less than 150 on atorvastatin 80 mg once a day (6) Overweight (BMI 25.0-29.9): Code(s): E66.3 - Overweight Plan: Continue with diet and exercise (7) GI bleed: Code(s): K92.2 - Gastrointestinal hemorrhage, unspecified Plan: referral to gastro Orders: Orders AMB Hemoglobin A1c Today Z13.9 - Encounter for screening, unspecified Complete Blood Count Auto Diff Today K92.2 - Gastrointestinal hemorrhage, unspecified Hemoglobin A1c Today K92.2 - Gastrointestinal hemorrhage, unspecified Vitamin B12 and Folate Today K92.2 - Gastrointestinal hemorrhage, unspecified Reticulocyte Count Today K92.2 - Gastrointestinal hemorrhage, unspecified Ferritin Today E11.65 - Type 2 diabetes mellitus with hyperglycemia Prostate Specific Antigen Scr Today E11.65 - Type 2 diabetes mellitus with hyperglycemia IRON PROFILE Today K92.2 - Gastrointestinal hemorrhage, unspecified Comprehensive Met. Panel Today E11.65 - Type 2 diabetes mellitus with hyperglycemia Lipid Panel Today E11.65 - Type 2 diabetes mellitus with hyperglycemia, E78.00 - Pure hypercholesterolemia, unspecified Thyroid Stimulating Hormone Today E11.65 - Type 2 diabetes mellitus with hyperglycemia Free T4 (Free Thyroxine) Today E11.65 - Type 2 diabetes mellitus with hyperglycemia Creatinine Urine Today E11. - Type 2 diabetes mellitus with hyperglycemia Microalbumin, Random (w Creat) Today E11.65 - Type 2 diabetes mellitus with hyperglycemia Referrals Gastroenterology Referral K92.2 - Gastrointestinal hemorrhage, unspecified Coding Level of Care Code Est Pt Level 4 (00142) Diagnoses Abdominal wall hernia K43.9 Pulmonary emphysema, unspecified emphysema type J43.9 COPD type: emphysema Emphysema type: unspecified Type 2 diabetes mellitus with hyperglycemia, without long-term current use of insulin E11 Diabetes mellitus assistant terminal manager insulin use: without assistant terminal manager use Coronary artery disease involving [place] coronary artery of [place] heart without angina pectoris I25.10 Associated angina: without angina Coronary Disease-Associated Artery/Lesion type: [place] artery [place] vs. transplanted heart: [place] heart Hypercholesterolemia E78.00 Overweight (BMI 25.0-29.9) E66.3 GI bleed K92.2
== END 2024-01-04 09:39 | disposition home or self-care (01) ==
PROVIDERS: PCP Internal Medicine; Visit Provider Internal Medicine
DX: K43.9 Ventral hernia without obstruction or gangrene (principal); J43.9 Emphysema, unspecified; E11.65 Type 2 diabetes mellitus with hyperglycemia; I25.10 Atherosclerotic heart disease of native coronary artery without angina pectoris; E78.00 Pure hypercholesterolemia, unspecified; E66.3 Overweight; K92.2 Gastrointestinal hemorrhage, unspecified
CPT/HCPCS: 83036; 99214

== ENCOUNTER 2024-03-28 14:19 | Outpatient (AMB) | payer OTHER, SELFPAY ==
--- NOTE | 2024-03-28 14:29 | A.OFFPC_ITS ---
Vital Signs 03/28/24 14:30 Height 5 ft 8 in Weight 175 lb 2 oz BMI 26.6 BP 130/68 Blood Pressure Location Lt brachial Position Sitting Pulse 68 Pulse Source Pulse Oximeter Pulse Oximetry (%) 96 Oxygen Delivery Method Room Air Intake Visit Reasons: Coronary artery disease Intake Note: Patient is here to follow up on CAD. Fluorescent Solution Mixer Required: No Credentialing Coordinator: Not Required per policy Accompanied by: Self / Same As Patient Allergies morphine [MORPHINE] Allergy (Severe, Verified 03/28/24 14:30) hallucinations rosuvastatin Allergy (Intermediate, Verified 03/28/24 14:30) Rash metformin Adverse Reaction (Intermediate, Verified 03/28/24 14:30) skin reaction Medication List - Last Reconciled 03/28/24 by Emmy Eubanks MD atorvastatin 80 mg PO DAILY 90 days clotrimazole 1% 1 appl topical BID 4 weeks hydrocodone-chlorpheniramine 10-8 mg/5 mL 5 mL PO Q12H PRN isosorbide mononitrate ER 30 mg PO DAILY metoprolol succinate ER (Toprol XL) 25 mg PO DAILY nitroglycerin 0.4 mg sublingual Q5M PRN pantoprazole 40 mg PO BID Tobacco use date assessed: 03/28/24 Dental Screening Dental Screen Date: 09/11/23 HPI Coronary artery disease HPI Details 63-year-old male with a history of abdom inal wall hernia status post repair in 11/13/2023 COPD diabetes mellitus coronary artery disease hypercholesterolemia coming in for follow-up. Patient had history of GI bleed and was referred to Gastroenterology. Last seen in 01/13/2024. Review of the notes was seen by Cardiology and had an echocardiogram done in January 31 showing normal left ventricular size normal regional wall motion EF of 55-60% normal left ventricular diastolic function normal right ventricular size no valvular disease mild ascending aorta dilatation at 3.9 cm patient follows up with the surgeon who did the hernia repair May 10/14/2023. Advised abdominal wall exercises [facility] Medical History (Updated 01/04/24 @ 09:18 by Emmy Eubanks MD) Positive colorectal cancer screening using Cologuard test Lateral epicondylitis of left elbow Neck pain Impacted cerumen of right ear Tinea cruris COPD (chronic obstructive pulmonary disease) Abdominal wall hernia Tobacco abuse Obesity (BMI 30-39.9) Type 2 diabetes mellitus with hyperglycemia Hypercholesterolemia Coronary artery disease Surgical History (Updated 03/28/24 @ 14:36 by LOURDES Oliveira) History of hernia surgery History of colostomy reversal History of colonoscopy Family History Father Past heart attack Cancer Maternal Uncle Myocardial infarction Mother No problems noted. Social History Housing: House Alcohol intake: current Alcohol intake frequency: a few times a month Alcohol type: wine Patient Tobacco Use Status: Former Tobacco user Tobacco use type: Cigarette Cigarette Packs Per Day: 0.5 Cigarettes Per Day: 10 Years Smoked: 12 years old started e-Cigarette/Vaping Use: Never Used Second Hand Smoke Exposure: No service: No Current occupational status: unemployed and disabled Cognitive needs: No Hearing needs: No Vision needs: No Questionnaire Thrive Questionnaire Date Thrive assessed: 09/11/23 GORDO-7 AMB Questionnaire GORDO-7 Date GORDO - 7 assessed: 09/11/23 Source: Developed by Drs. Jeffy Riddle, Hailey Reynolds, Triston Melendez and colleagues, with an educational lu from [employer]. Physical exam (Primary Care) Vital Signs: Last Vital Signs Pulse 68 03/28/24 14:30 BP 130/68 03/28/24 14:30 Pulse Ox 96 03/28/24 14:30 Oxygen Delivery Method Room Air 03/28/24 14:30 BMI result Body Mass Index 26.6 Tobacco/Smoking Status: Tobacco use Status Tobacco use date assessed 03/28/24 03/28/24 14:38 Patient Tobacco Use Status Former Tobacco user 03/28/24 14:38 Tobacco use type Cigarette 03/28/24 14:38 e-Cigarette/Vaping Use Never Used 03/28/24 14:38 Thrive Assessment: Date of Thrive Assessment Date Thrive assessed 09/11/23 03/28/24 14:38 Const General: alert; No acute distress Eyes Conjunctivae: conjunctivae normal Resp Auscultation: clear to auscultation bilaterally Cardio Rate: regular rate Rhythm: regular rhythm GI Inspection: Yes normal to inspection Extrem General: Yes normal to inspection and No edema Results AMB Hemoglobin A1c AMB Hemoglobin A1c 6.7 % Last Edit by LOURDES Oliveira on 03/28/24 14:42 Results Reviewed Results Reviewed: Laboratory Last Values Hgb A1c (Clinic) 6.7 % (4.0-6.0) H 03/28/24 14:28 Coding Level of Care Code Est Pt Level 4 (21405) Diagnoses Type 2 diabetes mellitus with hyperglycemia, without long-term current use of insulin E11.65 Diabetes mellitus remote computer terminal operator insulin use: without skilled nursing use Coronary artery disease involving [place] coronary artery of [place] heart without angina pectoris I25.10 Coronary Disease-Associated Artery/Lesion type: [place] artery [place] vs. transplanted heart: [place] heart Associated angina: without angina Hypercholesterolemia E78.00 Abdominal wall hernia K43.9 Pulmonary emphysema, unspecified emphysema type J43.9 COPD type: emphysema Emphysema type: unspecified Fatty liver K76.0 Screening for colon cancer Z12.11 Assessment & Plan Assessment & Plan (1) Type 2 diabetes mellitus with hyperglycemia: Comment: Dr. Mast Code(s): E11.65 - Type 2 diabetes mellitus with hyperglycemia Category: Medical Qualifiers: Diabetes mellitus skilled nursing insulin use: without remote computer terminal operator use Qualified Code(s): E11.65 - Type 2 diabetes mellitus with hyperglycemia Plan: Decrease the amount of carbohydrate intake, pasta, bread, rice and potatoes are all sugar and that is aside from all the sweet stuff, remember that fruits are good but they are Sweet also. Hemoglobin A1c goal of less than 6.5. (2) Coronary artery disease: Comment: Stent May 2015 echo normal September 2018 Code(s): I25.10 - Atherosclerotic heart disease of [place] coronary artery without angina pectoris Category: Medical Qualifiers: Coronary Disease-Associated Artery/Lesion type: [place] artery [place] vs. transplanted heart: [place] heart Associated angina: without angina Qualified Code(s): I25.10 - Atherosclerotic heart disease of [place] coronary artery without angina pectoris Plan: Control the cholesterol, weight, blood pressure, diabetes (3) Hypercholesterolemia: Code(s): E78.00 - Pure hypercholesterolemia, unspecified Category: Medical Plan: Avoid fried foods, chicken skin, eggs, butter margarine, pastries and meat. Be it pork or beef they have a lot of cholesterol will need retesting as the LDL goal of less than 70 on atorvastatin 80 mg once a day (4) Abdominal wall hernia: Comment: History Perforated bowel, perforated diverticulum S/p Repair 11/17/2023 Code(s): K43.9 - Ventral hernia without obstruction or gangrene Category: Medical Plan: Patient follows up with surgeon in January and stable (5) COPD (chronic obstructive pulmonary disease): Comment: Severe obstructive airway partial response PFT April 2019 Code(s): J44.9 - Chronic obstructive pulmonary disease, unspecified Category: Medical Qualifiers: COPD type: emphysema Emphysema type: unspecified Qualified Code(s): J43.9 - Emphysema, unspecified Plan: Stable (6) Fatty liver: Code(s): K76.0 - Fatty (change of) liver, not elsewhere classified Category: Medical Plan: Low-fat diet and exercise (7) Screening for colon cancer: Code(s): Z12.11 - Encounter for screening for malignant neoplasm of colon Category: Medical Plan: Patient is reminded about colonoscopy 04/2024 schedule Orders: Orders AMB Hemoglobin A1c Today E11.65 - Type 2 diabetes mellitus with hyperglycemia Medications: Refilled hydrocodone-chlorpheniramine 10-8 mg/5 mL 5 mL PO Q12H PRN 70 mL 0RF cold symptoms
[2024-03-28 14:30] VITALS: BP 130/68; PULSE 68; O2SAT 96; BMI 26.6
== END 2024-03-28 15:13 | disposition home or self-care (01) ==
PROVIDERS: PCP Internal Medicine; Visit Provider Internal Medicine
DX: E11.65 Type 2 diabetes mellitus with hyperglycemia (principal); J43.9 Emphysema, unspecified; I25.10 Atherosclerotic heart disease of native coronary artery without angina pectoris; E78.00 Pure hypercholesterolemia, unspecified; K43.9 Ventral hernia without obstruction or gangrene; K76.0 Fatty (change of) liver, not elsewhere classified; Z12.11 Encounter for screening for malignant neoplasm of colon

== ENCOUNTER → 2024-03-28 14:19 | Outpatient (BNVA) | payer OTHER, SELFPAY | PROVIDERS: PCP Internal Medicine; Visit Provider Internal Medicine | DX: E11.65 Type 2 diabetes mellitus with hyperglycemia (principal); I25.10 Atherosclerotic heart disease of native coronary artery without angina pectoris; E78.00 Pure hypercholesterolemia, unspecified; K43.9 Ventral hernia without obstruction or gangrene; J43.9 Emphysema, unspecified; K76.0 Fatty (change of) liver, not elsewhere classified | CPT/HCPCS: 83036; 99212 ==

== ENCOUNTER 2024-05-20 07:16 | Day surgery (SDC) | payer OTHER, SELFPAY ==
[2024-05-16 12:19] VITALS: BMI 26.5
--- NOTE | 2024-05-16 13:10 | HO.ANESPROP2 ---
Documented by User: Shavonne Blanc NP 05/16/24 13:14 HPI - Anesthesia Eval Consult details Narrative: 64yo M for Upper Endoscopy and Colonoscopy CAD s/p stent 2014 Follows Cardiology. Stable and cleared for hernia repair 10/2023 [facility] Active Problems Active Problems: All Active Problems GI bleed (Acute) Preop exam for internal medicine (Acute) Screening for colon cancer (Acute) History of smoking (Acute) Fatty liver (Acute) Overweight (BMI 25.0-29.9) (Acute) Non-healing wound (Acute) Screening for prostate cancer (Acute) Adult general medical exam (Acute) Positive colorectal cancer screening using Cologuard test (Acute) COPD (chronic obstructive pulmonary disease) (Acute) Abdominal wall hernia (Acute) Obesity (BMI 30-39.9) (Acute) Type 2 diabetes mellitus with hyperglycemia (Acute) Hypercholesterolemia (Acute) Coronary artery disease (Acute) Past Medical History Medical History Positive colorectal cancer screening using Cologuard test Lateral epicondylitis of left elbow Neck pain Impacted cerumen of right ear Tinea cruris COPD (chronic obstructive pulmonary disease) Abdominal wall hernia Tobacco abuse Obesity (BMI 30-39.9) Type 2 diabetes mellitus with hyperglycemia Hypercholesterolemia Coronary artery disease Family History Family History Father Past heart attack Cancer Maternal Uncle Myocardial infarction Mother No problems noted. Surgical History Surgical History Hx of heart artery stent History of hernia surgery History of colostomy reversal History of colonoscopy Social History Social History Housing: House Are you a primary chronic care nurse to a significant other at home: No Do you presently have visiting nurse or other home services: No Alcohol intake: current Alcohol intake frequency: a few times a month Alcohol type: wine Patient Tobacco Use Status: Former Tobacco user Tobacco use type: Cigarette Cigarette Packs Per Day: 0.5 Cigarettes Per Day: 10 Years Smoked: 12 years old started e-Cigarette/Vaping Use: Never Used Second Hand Smoke Exposure: No Use of substances other than those prescribed or required for medical reasons: Yes Substance Use Frequency: Daily Have you been hit, kicked, punched, or otherwise hurt by someone within the past year? If so, by whom?: No Are you DNR?: No Advance Directives: No Advance Directives Information Provided: Yes Recently lost weight without trying: No service: No Current occupational status: unemployed and disabled Cognitive needs: No Hearing needs: No Vision needs: No Meds Allergies Allergy/AdvReac Type Severity Reaction Status Date / Time morphine [MORPHINE] Allergy Severe hallucinati Verified 03/28/24 14:30 ons rosuvastatin Allergy Intermediate Rash Verified 03/28/24 14:30 metformin AdvReac Intermediate skin Verified 03/28/24 14:30 reaction Home Medications ?Medication ?Instructions ?Recorded ?Confirmed ?Last Taken ?Type isosorbide mononitrate 30 mg 30 mg PO DAILY 04/23/20 05/16/24 Unknown History tablet,extended release 24 hr nitroglycerin 0.4 mg sublingual 0.4 mg sublingual Q5M PRN Chest 04/23/20 05/16/24 Unknown History tablet Pain metoprolol succinate 25 mg 25 mg PO DAILY 04/05/22 05/16/24 Unknown History tablet,extended release 24 hr (Toprol XL) pantoprazole 40 mg tablet,delayed 40 mg PO BID 01/04/24 05/16/24 Unknown History release Exam Height,Weight and Vital Signs: Height 5 ft 8 in Weight 78.925 kg Narrative Narrative: EKG 10/2023 SB @ 52 Nuc Stress 10/2203 negative ECHO 01/2024 nml except ascending aorta 3.9cm Assessment and Plan Assessment Anesthesia Assessment: Chart Reviewed Documented by User: Yenni Pacheco MD 05/20/24 07:53 [facility] Past Medical History Medical History Positive colorectal cancer screening using Cologuard test Lateral epicondylitis of left elbow Neck pain Impacted cerumen of right ear Tinea cruris COPD (chronic obstructive pulmonary disease) Abdominal wall hernia Tobacco abuse Obesity (BMI 30-39.9) Type 2 diabetes mellitus with hyperglycemia Hypercholesterolemia Coronary artery disease Family History Family History Father Past heart attack Cancer Maternal Uncle Myocardial infarction Mother No problems noted. Family history of problems with anesthesia: No Surgical History Surgical History Hx of heart artery stent History of hernia surgery History of colostomy reversal History of colonoscopy History of Problems with Anesthesia: No Social History Social History Housing: House Are you a primary chronic care nurse to a significant other at home: No Do you presently have visiting nurse or other home services: No Alcohol intake: current Alcohol intake frequency: a few times a month Alcohol type: wine Patient Tobacco Use Status: Former Tobacco user Tobacco use type: Cigarette Cigarette Packs Per Day: 0.5 Cigarettes Per Day: 10 Years Smoked: 12 years old started e-Cigarette/Vaping Use: Never Used Second Hand Smoke Exposure: No Use of substances other than those prescribed or required for medical reasons: Yes Substance Use Frequency: Daily Have you been hit, kicked, punched, or otherwise hurt by someone within the past year? If so, by whom?: No Are you DNR?: No Advance Directives: No Advance Directives Information Provided: Yes Recently lost weight without trying: No service: No Current occupational status: unemployed and disabled Cognitive needs: No Hearing needs: No Vision needs: No Meds Allergies Allergy/AdvReac Type Severity Reaction Status Date / Time morphine [MORPHINE] Allergy Severe hallucinati Verified 03/28/24 14:30 ons rosuvastatin Allergy Intermediate Rash Verified 03/28/24 14:30 metformin AdvReac Intermediate skin Verified 03/28/24 14:30 reaction Home Medications ?Medication ?Instructions ?Recorded ?Confirmed ?Last Taken ?Type isosorbide mononitrate 30 mg 30 mg PO DAILY 04/23/20 05/16/24 Unknown History tablet,extended release 24 hr nitroglycerin 0.4 mg sublingual 0.4 mg sublingual Q5M PRN Chest 04/23/20 05/16/24 Unknown History tablet Pain metoprolol succinate 25 mg 25 mg PO DAILY 04/05/22 05/16/24 Unknown History tablet,extended release 24 hr (Toprol XL) pantoprazole 40 mg tablet,delayed 40 mg PO BID 01/04/24 05/16/24 Unknown History release Exam Airway Mallampati Class: II TM Dist: >3cm Neck ROM: Full Heart: rrr Lungs: cta Assessment and Plan Assessment Anesthesia Assessment: Anesthesia Plan Discussed Final Anesthetic Review Family History of Problems with Anesthesia: No History of Problems with Anesthesia: No NPO: Yes ASA Class: III Final Preanesthetic Review: No Changes in Pt Med Stat, Meds/Allgs Chart Reviewed, Consent Obtained/Reviewed and Anes Risks/Benef Reviewed Patient Risk: Intermediate Procedure Risk: Low Anesthetic Plan Anesthetic Plan: MAC: Disposition: Standard PACU
[2024-05-20 07:29] VITALS: BP 146/89; PULSE 70; RESP 16; TEMP 36.8; O2SAT 96; BMI 26.7
--- NOTE | 2024-05-20 07:39 | ECG_ITS ---
Test Reason : bigeminy Blood Pressure : / mmHG Vent. Rate : 062 BPM Atrial Rate : 062 BPM P-R Int : 128 ms QRS Dur : 080 ms QT Int : 416 ms P-R-T Axes : 008 052 062 degrees QTc Int : 422 ms Sinus rhythm with sinus arrhythmia with Premature ventricular complexes or Fusion complexes Otherwise normal ECG When compared with ECG of 24-SEP-2015 21:45, Premature ventricular complexes are now Present T wave inversion no longer evident in Inferior leads Referred By: Yenni Pacheco Electronically Signed By:BRENDA CHEN
[2024-05-20] MEDS: Lactated Ringers 1,000 ML 100 ML IVCONT (07:50)
[2024-05-20 09:53] VITALS: BP 116/60; PULSE 76; RESP 16; TEMP 36.3; O2SAT 98
--- NOTE | 2024-05-20 09:57 | P.BOP_ITS ---
Brief Operative Note Date of Service: 05/20/24 Pre-op diagnosis: Hx of PUD, + Cologuard Post-op diagnosis: other (Duodenitis, Hiatal hernia, GERD, Colon Polyps) Procedure: EGD with biopsies, Colonoscopy to the cecum with cold snare polypectomy x 2 Surgeon: Jeffy Henao MD Anesthesia: MAC Was an Healthcare Recruiter used for this Procedure?: No Estimated blood loss (mL): 2.0 Pathology: other (A. Gastric antrum B. EG Junction at 38cm C. Ascending colon polyp D. Transverse colon polyp) Condition: stable Disposition: PACU
[2024-05-20 10:08] VITALS: BP 131/62; PULSE 55; RESP 16; O2SAT 97
[2024-05-20 10:23] VITALS: BP 144/78; PULSE 56; RESP 16; TEMP 36.3; O2SAT 98
--- NOTE | 2024-05-20 10:28 | OP_ITS ---
DATE OF SERVICE: 05/20/2024 SURGEON: Jeffy Henao MD INDICATIONS: The patient presents for evaluation of previous history of peptic ulcer disease and positive Cologuard test. Full consent has been obtained from him for both procedures, including risks of bleeding and perforation. PREOPERATIVE DIAGNOSIS: POSTOPERATIVE DIAGNOSIS: PROCEDURE PERFORMED: Esophagogastroduodenoscopy with biopsies and colonoscopy to the cecum with cold snare polypectomy x2. ESTIMATED BLOOD LOSS: COMPLICATIONS: ANESTHESIA: Monitored anesthesia care. ASSISTANTS: SPECIMENS: PREOPERATIVE DIAGNOSES: History of peptic ulcer disease and positive Cologuard test. POSTOPERATIVE DIAGNOSES: History of peptic ulcer disease, positive Cologuard test, duodenitis, rule out Helicobacter pylori, hiatal hernia with gastroesophageal reflux, colon polyps, diverticulosis, and internal hemorrhoids. DESCRIPTION OF PROCEDURE: The patient was placed in the left lateral decubitus position. The Olympus video gastroscope was passed in the posterior oropharynx and upper esophagus under direct vision. The scope was passed slowly into the distal esophagus. The gastroesophageal junction appeared at 38 cm. There was some slight irregularity consistent with reflux, but no evidence of esophagitis nor any definitive evidence of Lau esophagus. The scope entered the stomach. There was a small hiatal hernia. The scope was advanced to pylorus and the duodenum was cannulated to the descending portion. The duodenum including the bulb was carefully inspected. The 2nd and 3rd portions of duodenum appeared normal. The duodenal bulb had some areas of duodenitis, edema, and some scarring. There was no ulceration nor stricture. The scope was withdrawn back to the stomach. The gastric antrum and body appeared normal with good peristalsis. Biopsies were obtained from the antrum. The scope was retroflexed, visualizing the proximal stomach carefully, which appeared normal, without any sign of mass or ulceration. The scope was straightened and withdrawn back to the esophagus. Biopsies were obtained at the EG junction at 38 cm. Proximal to that, the esophageal mucosa appeared normal. The scope was withdrawn from the patient. He was turned around for the colonoscopy. The digital rectal exam revealed no abnormalities. The Olympus video pediatric colonoscope was then entered into the rectum and advanced easily to the cecum. Once in the cecum, I did identify normal-appearing cecal pouch with appendiceal orifice and a normal-appearing ileocecal valve. There was transillumination of light deep in the right lower quadrant. The scope was slowly withdrawn assessing all mucosal surfaces carefully. Preparation was excellent. In the ascending colon and transverse colon, were flat, approximately 5 or 6 mm polyps, which were each removed with cold snare polypectomy and recovered by suction. The polypectomy site appeared clean, without any sign of residual polyp nor significant bleeding. I did not visualize any other polyps, colitis, nor angiodysplasias. There was a diffuse diverticulosis from the ascending colon all the way down to the area just above the anastomosis at 20 cm. The anastomosis appeared normal. Once in the rectum, scope was retroflexed, visualizing some internal hemorrhoids, but no other pathology. The rectal mucosa appeared normal. The scope was straightened and withdrawn from the patient. He tolerated the procedures well and was returned to the recovery area in stable condition. IMPRESSION: 1. Colon polyps. 2. Diverticulosis. 3. Internal hemorrhoids. 4. Duodenitis. 5. Hiatal hernia with reflux, rule out Lau's esophagus. 6. Rule out Helicobacter pylori. PLAN: The results of the biopsies will be checked. If either of the polyps are a tubular adenoma, I would recommend a followup colonoscopy in 5 years. He was advised to continue stay off all aspirin and NSAIDs long-term given the previous history of GI bleeding. He will continue his pantoprazole on a long-term basis as well. He will see me on a p.r.n. basis. He was advised to continue to remain abstinent from tobacco and alcohol. MD IKE Reddy/PHILL / [id number] MTDD
== END 2024-05-20 10:55 | disposition home or self-care (01) ==
PROVIDERS: PCP Internal Medicine; Visit Provider Internal Medicine
PROC: (CPT 43239; principal; 2024-05-20 08:30)
DX: K29.80 Duodenitis without bleeding (principal); K44.9 Diaphragmatic hernia without obstruction or gangrene; K21.9 Gastro-esophageal reflux disease without esophagitis; K27.4 Chronic or unspecified peptic ulcer, site unspecified, with hemorrhage; R19.5 Other fecal abnormalities; D12.3 Benign neoplasm of transverse colon; K57.30 Diverticulosis of large intestine without perforation or abscess without bleeding; K64.8 Other hemorrhoids; K63.89 Other specified diseases of intestine; R00.8 Other abnormalities of heart beat; E11.9 Type 2 diabetes mellitus without complications; K76.0 Fatty (change of) liver, not elsewhere classified; J44.9 Chronic obstructive pulmonary disease, unspecified; Z87.891 Personal history of nicotine dependence
CPT/HCPCS: 43239; 45385; 88305; 88313; 88342; 93005; J1100; J1596; J2003; J2371; J2704

== ENCOUNTER → 2024-05-20 07:39 | Outpatient (BNV) | payer OTHER, SELFPAY | PROVIDERS: PCP Internal Medicine; Visit Provider Internal Medicine | DX: R00.8 Other abnormalities of heart beat (principal); I49.3 Ventricular premature depolarization | CPT/HCPCS: 93010 ==

== ENCOUNTER 2024-08-22 13:24 | Outpatient (REF) | payer OTHER, SELFPAY ==
[2024-08-22 13:47] LABS: MANUAL DIFF FLAG NO
[2024-08-22 14:23] LABS: Basophils Percent Auto 0.3 % (0-2); Eosinophils Percent Auto 0.4 % (0-4); Hematocrit 42.4 % (42.0-52.0); Imm Gran Abs Auto 0.02 X10*3/uL (0.00-0.03); Imm Gran Pct Auto 0.2 % (0.0-0.4); Immature Retic Fraction 9.9 % (2.3-13.4); Lymphocytes Absolute Auto 1.6 X10*3/uL (1.2-4.9); Lymphocytes Percent Auto 17.4 % (20-40); Mean Corpuscular Hemoglobin 28.7 pg (27.0-33.0); Mean Corpuscular Volume 87.1 fL (80.0-98.0); Mean Platelet Volume 9.2 fL (9.4-12.4); Monocytes Absolute Auto 0.7 X10*3/uL (0.1-1.2); Monocytes Percent Auto 7.9 % (2-11); Neutrophils Absolute Auto 6.6 x10*3/uL (2.0-8.3); Neutrophils Percent Auto 73.8 % (45-73); Platelet Count 217 X10*3/uL (160-400); Red Blood Count 4.87 X10*6/uL (4.60-5.80); Red Cell Distribution Width 12.8 % (11.0-16.0); Retic HGB Equivalent 31.3 pg (30.0-35.0); Reticulocyte Percent 1.5 % (0.5-1.8); Reticulocytes Absolute 0.071 X10*6/uL (0.026-0.095); White Blood Count 8.9 X10*3/uL (4.8-10.8)
[2024-08-22 14:33] LABS: Estimated Average Glucose 123 mg/dL; Hemoglobin A1c % 5.9 % (<6.0); Total Hemoglobin (HGBA1C) 3568.5008 umol/L
[2024-08-22 15:16] LABS: Alanine Aminotransferase 15 U/L (0-40); Alkaline Phosphatase 96 U/L (39-117); Anion Gap 13 (12-20); Aspartate Amino Transferase 19 U/L (5-37); Blood Urea Nitrogen 17 mg/dL (9-16); Calcium 9.3 mg/dL (8.4-10.2); Carbon Dioxide 24 mmol/L (22-29); Chloride 109 mmol/L (96-108); Cholesterol 94 mg/dL (<200); Estimated Glomerular Filt Rate > 60; Glucose Random 102 mg/dL (60-115); HDL Cholesterol 35 mg/dL (>40); Iron 32 mcg/dL (45-160); LDL Cholesterol Calculated 48 mg/dL (<100); Percent Iron Saturation 14 % (15-50); Sodium 142 mmol/L (135-145); Total Iron Binding Capacity 231 mcg/dL (228-428); Total Protein 7.6 g/dL (6.5-8.0); Triglycerides 59 mg/dL (<150); Unsaturated Iron Binding 199 ug/dL
[2024-08-22 15:37] LABS: Ferritin 451 ng/mL (20-250); Folate 6.2 ng/mL (> or = 4.0); Free T4 (Free Thyroxine) 1.02 ng/dL (0.71-1.85); Thyroid Stimulating Hormone 1.24 uIU/mL (0.32-4.0); Vitamin B12 437 pg/mL (200-900)
--- OUTSIDE RECORDS SUMMARY | 2024-08-22 16:05 | XMS_ITS ---
Author Organization [facility] Address [address] [place] [phone] Care Team Providers Care Rn Appeals Name Role Phone Po Emmy GUERRERO Primary Care Provider Jeffy Pittman [phone] MEDICATIONS Medication SIG (Take, Route, Fr equency, Duration) Notes Start Date End Date Status MiraLax 17 GM/SCOOP From a 238Gm bottle use 1 scoop mixed with 8 ounces of fluid every 30 minutes for 4 doses Orally Take this two days before your colonoscopy for 1 days 02/03/2024 Acti ve Dulcolax 5 MG 2 Orally Once two da ys before your colonoscopy for 1 days 02/03/2024 Acti ve Encounters Encounter Location Date Provider Diagnosis [facility] [address] [place] [phone] 02/03/2024 Jeffy Henao PLAN OF TREATMENT Medication Medication Name Sig Start Date Stop Date Notes MiraLax 17 GM/SCOOP From a 238Gm bottle use 1 scoop mixed with 8 ounces of fluid every 30 minutes for 4 doses Orally Take this two days before your colonoscopy for 1 days 02/03/2024 Dulcolax 5 MG 2 Orally Once two da ys before your colonoscopy for 1 days 02/03/2024
--- OUTSIDE RECORDS SUMMARY | 2024-08-22 16:05 | XMS_ITS | Referral Summary ---
Author Organization [facility] Address [address] [place] [address] Care Team Providers Care Engraving Supervisor Name Role Phone Emmy Eubanks Primary Care Provider [phone] Allergies Active Allergy Reactions Criticality Noted Date Comments Morphine Sulfate Unknown Medications aspirin 81 mg EC tablet Pt states taking as ordered. Active atorvastatin (LIPITOR) 80 mg tablet 10/06/2021 Active metoprolol succinate XL (TOPROL XL) 25 mg tablet Take 12.5 mg by mouth 2 times a day. 07/21/2021 Active Active Problems Problem Noted Date Diagnosed Date Tobacco use disorder 10/14/2021 Assessment & Plan (10/14/2021 2:38 PM EDT): During today's visit we had a lengthy discussion about smoking cessation. At this time Igor has an approximately [id number] history. Today we discussed the importance of smoking cessation both for general health, wellbeing, longevity of life. As well as related to wound healing with his skin breakdown on the hernia, and eventually from healing from surgery status post hernia repair. As this hernia repair would be completely elective, We discussed that he should complete smoking cessation for at least 6 weeks prior to enter surgical planning. This would allow for the skin breakdown over his hernia to improve. Additionally it would significantly lessen his potential for adverse effects related to anesthesia. Of note, while were talking though Igor was able to speak in complete sentences he did appear to be working very hard at breathing. Therefore I would strongly consider pulmonary presurgical clearance prior to planning for surgery. 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 Incisional hernia, without obstruction or gangre ne 04/27/2015 Assessment & Plan (10/14/2021 2:41 PM EDT): Igor was seen and examined by myself and Dr. Dileep Singh. We discussed first and foremost, obtaining the recent radiological images would be important. This would allow for further evaluation of the abdominal wall and the hernia for eventual surgical planning. As this would be an elective hernia repair, we also counseled with weight loss. Since he has had the hernia for so long, and describes some aspects of loss of domain, any weight loss would be beneficial to his recovery after hernia repair. He does have some baseline shortness of breath with activity, therefore weight loss would also help with the change in intra-abdominal pressure that is going to occur with hernia repair. We discussed the importance of losing at least 10 pounds prior to proceeding with surgery. Igor was agreeable with this plan. We will plan to follow-up with him in about 3 months, to evaluate progress. He was given the number to the general surgery team and encouraged to call with any questions or concerns that might arise in the future. Though the likelihood of strangulation episode is extremely low given the size of the defect we also reviewed the signs and symptoms of incarcerated or strangulated tissue associated hernias, which may include increasing or worsening pain at a hernia site that does not improve, sudden change to the color of the skin at the site, inability to reduce a hernia back into the abdominal cavity, and inability to pass gas or have bowel movements, all of which may be associated with nausea and vomiting. If he has any concerns regarding this, he knows to contact the general surgery team immediately and proceed directly to the nearest emergency room for evaluation. It was a pleasure sharing in his care. Social History Tobacco Use Types Packs/Day Years Used Date Smoking Tobacco: Every Day Smokeless Tobacco: Never Comments:: Sex and Gender Information Value Date Recorded Sex Assigned at Not on file Legal Sex Male 1:59 AM EDT Gender Identity Not on file Sexual Orientation Not on file Last Filed Vital Signs Vital Sign Reading Time Taken Comments Blood Pressure 138/87 10/14/2021 1:07 PM EDT Pulse 68 10/14/2021 1:07 PM EDT Temperature 36.5 ??C (97.7 ??F) 04/27/2015 2:35 PM ES T Respiratory Rate - - Oxygen Saturation - - Inhaled Oxygen Concentration - - Weight 90.7 kg (200 lb) 10/14/2021 1:07 PM EDT Height 172.7 cm (5' 8 ) 10/14/2021 1:07 PM EDT Body Mass Index 30.41 10/14/2021 1:07 PM EDT Plan of Treatment Not on file Procedures * Due to [place] 5to1 law, this organization might not be sharing negative HIV tests. Procedure Name Priority Date/Time Associated Diagnosis Comments COLONOSCOPY 09/28/2012 from Last 3 Months or Most Recently Relevant to Health Maintenance Results * Due to [place] 5to1 law, this organization might not be sharing negative HIV tests. * COLONOSCOPY (09/28/2012) 09/28/2012 us Onbase Scan [facility] Final Resu lt from Last 3 Months or Most Recently Relevant to Health Maintenance Insurance [facility] Care Teams Engraving Supervisor Relationship Specialty Start Date End Date Emmy Eubanks [address] [place] [address] [place] [address] PCP - General Internal Medicine 10/08/21
--- OUTSIDE RECORDS SUMMARY | 2024-08-22 16:05 | XMS_ITS ---
Author Organization [facility] Address [address] [place] [phone] Care Team Providers Care Pharmacist Critical Care Name Role Phone Po Emmy GUERRERO Primary Care Provider Jefyf Pittman [phone] REASON FOR VISIT bowel prep MEDICATIONS Medication SIG (Take, Route, Frequency, Duration) Notes Start Date End Date Status Dulcolax (colon prep) 5 MG take at 3:00 p.m and 7:00p.m. Orally two tablets twice a day for one day for 1 day 01/31/2024 Active MiraLax (colon prep) 17 GM/SCOOP 1 238Gm bottle mixed with Gatorade or Crystal Light Orally begin at 5:00 p.m. the day before the procedure for 1 day 01/31/2024 Active Encounters Encounter Location Date Provider Diagnosis [facility] [address] [facility] [address] [place] [phone] 01/16/2024 Jeffy Henao PLAN OF TREATMENT Medication Medication Name Sig Start Date Stop Date Notes Dulcolax (colon prep) 5 MG take at 3:00 p.m and 7:00p.m. Orally two tablets twice a day for one day for 1 day 01/31/2024 MiraLax (colon prep) 17 GM/SCOOP 1 238Gm bottle mixed with Gatorade or Crystal Light Orally begin at 5:00 p.m. the day before the procedure for 1 day 01/31/2024
--- OUTSIDE RECORDS SUMMARY | 2024-08-22 16:05 | XMS_ITS | Encounter Summary ---
Author Organization [facility] Address [id number] [phone] Care Team Providers Care Yarder Name Role Phone Emmy Eubanks MD Primary Care Provider [phone] Encounter Details Date Type Department Care Team (Latest Contact Info) Description 06/13/2024 9:50 AM EST Office Visit [facility] [address] [place] [address] Mahin Perea MD [address] [place] [address] [address] [place], [place] [id number] Coronary artery disease involving enterprise coronary artery of enterprise heart without angina pectoris (Primary Dx); Pure hypercholesterolemia Social History Tobacco Use Types Packs/Day Years Used Date Smoking Tobacco: Former Cigarettes Q uit: 06/26/2021 Smokeless Tobacco: Never Alcohol Use Standard Drinks/Week Comments Yes 0 (1 standard drink = 0.6 oz pur e alcohol) Sex and Gender Information Value Date Recorded Sex Assigned at Not on file Legal Sex Male 4:14 PM EST Gender Identity Not on file Sexual Orientation Not on file documented as of this encounter Last Filed Vital Signs Vital Sign Reading Time Taken Comments Blood Pressure 110/60 06/13/2024 9:41 AM EST Pulse 63 06/13/2024 9:41 AM EST Temperature - - Respiratory Rate - - Oxygen Saturation 98% 06/13/2024 9:41 AM EST Inhaled Oxygen Concentration - - Weight 80.1 kg (176 lb 9.6 oz) 06/13/2024 9:41 A M EST Height 172.7 cm (5' 8 ) 06/13/2024 9:41 AM EST Body Mass Index 26.85 06/13/2024 9:41 AM EST documented in this encounter Progress Notes * Mahin Perea MD - 06/13/2024 9:50 AM ESTAssociated Problem(s): CAD (coronary artery disease) The patient has a history of coronary artery disease. Currently, the patient denies any chest pain at rest or with exertion. The patient continues on secondary preventive therapy for CAD, including: Isosorbide mononitrate, statin and beta estella. Of note, the patient states that his aspirin was recently discontinued by his sand drier due to significant peptic ulcer disease. Will attempt to obtain the records from the patient's sand drier in order to review this. If so, then we may need to consider the use of clopidogrel monotherapy. Orders: Comprehensive metabolic panel; Future Lipid panel; Future * Mahin Perea MD - 06/13/2024 9:50 AM ESTAssociated Problem(s): HLD (hyperlipidemia) The patient has a history of hyperlipidemia. The patient is currently on atorvastatin 80 mg orally daily. We will order a new lipid panel to evaluate the patient's current lipid control and determineif any adjustment are needed in the lipid lowering therapy. * Mahin Perea MD - 06/13/2024 9:50 AM EST [facility] Outpatient Follow Up Note PCP: Emmy Eubanks MD HPI: Igor Arcos is a 64 yr. old Male with a history of coronary artery disease status post non-STEMI in 2014 that resulted in a stent placement to the RCA, obesity, abdominal hernia, former smoker, peptic ulcer disease, and hyperlipidemia who underwent a follow-up evaluation today. The patient's last evaluation in our office was on 11/01/2023. On today's visit, the patient denies any chest pain at rest or with exertion, shortness of breath, palpitations, lower extremity edema, dizziness, or syncope. Of note, the patient states that he has significant peptic ulcer disease and recently underwent treatment for his peptic ulcer disease with Dr. Henao (gastroenterology at [facility]). Thepatient states that he was advised by his sand drier to avoid the use of aspirin. Cardiac testin. Exercise nuclear stress test June 2018: Patient achieved 70% of the MPHR, patient reported a mild constant chest pressure sensation that did not change during the exercise protocol, and myocardial perfusion images did not show any reversible or fixed perfusion defects. LVEF was normal. 2. Echocardiogram September 2018 showed a normal left ventricular systolic function with a LVEF of 60 to 65%, normal left ventricular diastolic function, normal right ventricular size and function, dilated left atrium, and no hemodynamically significant valvular disease. 3. Nuclear stress test (11/10/2023): Normal study. No evidence of ischemia or infarct on the myocardial perfusion images after attenuation correction was applied. Low-normal left ventricular systolic function with a left ventricular ejection fraction of 54%. 4. Echocardiogram (02/01/2024): Normal left ventricular systolic function with a left ventricular ejection fraction of 55 to 60%. Normal LV diastolic function. Normal RV size and function. No significant valvular disease. Mild dilated ascending aorta at 3.9 cm. ACTIVE MEDICATIONS: Outpatient Medications Marked as Taking for the 06/13/24 encounter (Office Visit) with Mahin Perea MD Medication Sig Dispense Refill atorvastatin (LIPITOR) 80 mg tablet TAKE 1 TABLET BY MOUTH EVERY DAY isosorbide mononitrate (IMDUR) 30 mg 24 hr tablet TAKE 1 TABLET BY MOUTH EVERY DAY AT DINNER TIME metoprolol succinate (TOPROL-XL) 25 mg 24 hr tablet TAKE 1 TABLET BY MOUTH EVERY DAY pantoprazole (PROTONIX) 20 mg EC tablet Take 1 tablet (20 mg total) by mouth 1 (one) time each day before breakfast. Do not crush, chew, or split. ALLERGIES: Allergies Allergen Reactions Morphine SOCIAL HISTORY: Social History Tobacco Use Smoking status: Former Current packs/day: 0.00 Types: Cigarettes Quit date: 06/26/2021 Years since quittin.9 Smokeless tobacco: Never Substance Use Topics Alcohol use: Yes REVIEW OF SYSTEMS: Review of Systems Constitutional: Negative for malaise/fatigue. Cardiovascular: Negative for chest pain, claudication, dyspnea on exertion, leg swelling, near-syncope, orthopnea, palpitations, paroxysmal nocturnal dyspnea and syncope. Respiratory: Negative for shortness of breath. Neurological: Negative for dizziness and light-headedness. PHYSICAL EXAM: Vitals: 06/13/24 0941 BP: 110/60 Pulse: 63 SpO2: 98% Body mass index is 26.85 kg/m??. Physical Exam Vitals reviewed. Constitutional: General: He is not in acute distress. Appearance: Normal appearance. He is not ill-appearing. HENT: Head: Normocephalic. Nose: Nose normal. Cardiovascular: Rate and Rhythm: Normal rate and regular rhythm. Heart sounds: Normal heart sounds. No murmur heard. No friction rub. No gallop. Pulmonary: Effort: No respiratory distress. Breath sounds: Normal breath sounds. Musculoskeletal: General: No swelling. Skin: General: Skin is warm. Neurological: Mental Status: He is alert and oriented to person, place, and time. Mental status is at baseline. Psychiatric: Mood and Affect: Mood normal. Behavior: Behavior normal. ASSESSMENT/PLAN: Assessment & Plan Coronary artery disease involving enterprise coronary artery of enterprise heart without angina pectoris The patient has a history of coronary artery disease. Currently, the patient denies any chest pain at rest or with exertion. The patient continues on secondary preventive therapy for CAD, including: Isosorbide mononitrate, statin and beta estella. Of note, the patient states that his aspirin was recently discontinued by his sand drier due to significant peptic ulcer disease. Will attempt to obtain the records from the patient's sand drier in order to review this. If so, then we may need to consider the use of clopidogrel monotherapy. Orders: Comprehensive metabolic panel; Future Lipid panel; Future Pure hypercholesterolemia The patient has a history of hyperlipidemia. The patient is currently on atorvastatin 80 mg orally daily. We will order a new lipid panel to evaluate the patient's current lipid control and determineif any adjustment are needed in the lipid lowering therapy. The [facility] team will continue to co-manage this patient following the plan of care as established by my initial visit and as per AHA guidelines for ongoing management and surveillance of CAD, hyperlipidemia. This will include medication titration, initiation of appropriate medications and further titration, and diagnostic studies to manage this disease process. documented in this encounter Plan of Treatment Scheduled Orders Name Type Priority Associated Diagnoses Orde r Schedule Comprehensive metabolic panel Lab Routine Coronary artery disease involving enterprise coronary artery of enterprise heart without angina pectoris 1 Occurrences starting 06/13/2024 until 06/13/2025 Lipid panel Lab Routine Coronary artery disease involving enterprise coronary artery of enterprise heart without angina pectoris 1 Occurrences starting 06/13/2024 until 06/13/2025 documented as of this encounter Visit Diagnoses Diagnosis Coronary artery disease involving enterprise coronary artery of enterprise heart without angina pectoris- Primary Pure hypercholesterolemia documented in this encounter Discontinued Medications Medication Sig Discontinue Reason Start Date End Da te aspirin 81 mg EC tablet Take 81 mg by mouth daily. Prescriber Discontinued 06/13/2024 documented as of this encounter Historical Medications * This list may reflect changes made after this encounter. pantoprazole (PROTONIX) 20 mg EC tablet Take 1 tablet (20 mg total) by mouth 1 (one) time each day before breakfast. Do not crush, chew, or split. added in this encounter Care Teams Yarder Relationship Specialty Start Date End Date Emmy Eubanks MD [address] [place] [address] Dr [address] [facility] [place] [address] PCP - General 10/03/16 documented as of this encounter
--- OUTSIDE RECORDS SUMMARY | 2024-08-22 16:05 | XMS_ITS ---
Author Organization [facility] Address [address] [place] [address] Care Team Providers Care Curator Herbarium Name Role Phone Po Emmy GUERRERO Primary Care Provider Jeffy Pittman [phone] REASON FOR VISIT positive colon ca screening using cologuard,chronic peptic ulcer PROBLEMS Problem Type ICD Code Onset Dates Problem Status W/U Status Risk SNOMED Code Notes Problem Diverticulosis of large intestine without perforation or abscess without bleeding (K57.30) Active confirmed Diverticul ar disease of colon (643090165) Problem Gastro-esophageal reflux disease without esophagitis (K21.9) Active confirmed Gastro-esophage al reflux disease without esophagitis (723444724) Problem Duodenitis (K29.80) Active confirmed Duodenitis (31009564) Encounters Encounter Location Date Provider Diagnosis [facility] [place] [facility] [address] [place] [phone] 05/20/2024 Jeffy Henao Colon polyps K63.5 ; Heme + stool R19.5 ; Diverticulosis of large intestine without perforation or abscess without bleeding K57.30 ; Gastro-esophageal reflux disease without esophagitis K21.9 ; Hiatal hernia K44.9 ; Duodenitis K29.80 and Personal history of peptic ulcer disease Z87.11 ASSESSMENTS Encounter Date Diagnosis Assessment Notes Treatment Notes Treatment Clinical Notes 05/20/2024 Colon polyps (ICD-10 - K63.5) 05/20/2024 Heme + stool (ICD-10 - R19.5) 05/20/2024 Diverticulosis of large intestine without perforation or abscess without bleeding (ICD-10 - K57.30) 05/20/2024 Gastro-esophageal reflux disease without esophagitis (ICD-10 - K21.9) 05/20/2024 Hiatal hernia (ICD-1 0 - K44.9) 05/20/2024 Duodenitis (ICD-10 - K29.80) 05/20/2024 Personal history of peptic ulcer disease (ICD-10 - Z87.11) PLAN OF TREATMENT No Information
--- OUTSIDE RECORDS SUMMARY | 2024-08-22 16:05 | XMS_ITS | Clinical Summary ---
Author Organization [facility] Address [address] [place] [address] Care Team Providers Care Intranet Specialist Name Role Phone Emmy Eubanks Primary Care Provider [phone] Allergies Active Allergy Reactions Criticality Noted Date [...] At this time Igor has an approximately 57-ebri-cakg history. Today we discussed the importance of [...] for surgery. Igor does not have a mattress maker currently. Incisional hernia, without obstruction or gangre [...] was a pleasure sharing in his care. Family History Medical History Relation Name Comments Other Father Family History of acute myocardial infarction Relation Name Status Comments Father Social History Tobacco Use Types Packs/Day Years [...] 10/14/2021 1:07 PM EDT Plan of Treatment Health Maintenance Due Date Last Done Comments Cologuard 1960 FOBT / Fit Test 1960 HIV Screening 1960 Hepatitis C Screening [address] Lung Cancer Screening (Baseline) 2010 Zoster Vaccines (1 of 2) 2010 DTaP,Tdap,and Td Vaccines (1 - Tdap) 11/28/2012 11/27/2012 Pneumococcal Vaccine: 50+ Years (2 of 2 - PCV) 03/24/2017 03/24/2016 Colon Cancer Screening 09/28/2022 Colonoscopy 09/28/2022 09/28/2012 COVID-19 Vaccine (3 - season) 2024 04/07/2021, 09/17/2020 Influenza Vaccine (#1) 2024 , 04/18/2019, 03/15/2018, Additional history exists Alcohol/Substance Use Screening 06/26/2024 Depression Screening and Follow-Up 06/26/2024 Social Drivers of Health Annual Screening 06/26/2024 RSV Vaccine (60+ years old and patients) (1 - 1-dose 75+ series) 2035 Hepatitis B Vaccines Aged Out No long er eligible based on patient's age to complete this topic Procedures * Due to [employer] law, this organization might not be sharing negative HIV tests. Procedure Name Priority Date/Time Associated Diagnosis Comments COLONOSCOPY 09/28/2012 from Last 3 Months or Most Recently Relevant to Health Maintenance Results * Due to [employer] law, this organization might not be sharing negative HIV tests. * COLONOSCOPY (09/28/2012) 09/28/2012 us Onbase Scan [facility] Final Resu lt from Last 3 Months or Most Recently Relevant to Health Maintenance Insurance [facility] Care Teams Intranet Specialist Relationship Specialty Start Date End Date Emmy Eubanks [address] [place] [address] [place] [address] PCP - General Internal Medicine 10/08/21
--- OUTSIDE RECORDS SUMMARY | 2024-08-22 16:05 | XMS_ITS | Clinical Summary ---
Author Organization [facility] [employer] [facility] Address [address] [place] [address] Phone Care Team Providers Care Bale Piler Name Role Phone Emmy Eubanks MD Primary Care Provider [phone] Allergies Active Allergy Reactions Criticality Noted Date Comments Morphine 04/20/2023 Medications atorvastatin (LIPITOR) 80 mg tablet TAKE 1 TABLET BY MOUTH EVERY DAY Active isosorbide mononitrate (IMDUR) 30 mg 24 hr tablet TAKE 1 TABLET BY MOUTH EVERY DAY AT DINNER TIME Active metoprolol succinate (TOPROL-XL) 25 mg 24 hr tablet TAKE 1 TABLET BY MOUTH EVERY DAY Active pantoprazole (PROTONIX) 20 mg EC tablet Take 1 tablet (20 mg total) by mouth 1 (one) time each day before breakfast. Do not crush, chew, or split. Active Active Problems Problem Noted Date Diagnosed Date HLD (hyperlipidemia) 03/03/2022 Overview (05/09/2024): Last Assessment & Plan: Patient has a history of hyperlipidemia as well as history of coronary artery disease. His goal LDL is less than 70 given his history. He continues on atorvastatin 80 mg orally daily. At his last office visit, he was ordered for a fasting lipid panel. I do not see that this was completed. I will give him a new lab slip to complete a new fasting lipid panel and make any adjustments as necessary. He has been working on his diet and healthy lifestyle. Assessment & Plan (07/21/2024 6:54 PM EST): The patient has a history of hyperlipidemia. The patient is currently on atorvastatin 80 mg orally daily. We will order a new lipid panel to evaluate the patient's current lipid control and determine if any adjustment are needed in the lipid lowering therapy. CAD (coronary artery disease) 03/02/2022 Overview (05/09/2024): Last Assessment & Plan: Patient has a history of coronary artery disease. He denies any episodes of chest pain or shortness of breath. He continues on cardioprotective medical therapy for CAD with aspirin, statin and beta-estella. He is also on isosorbide mononitrate. He will continue medical therapies. Assessment & Plan (07/21/2024 6:54 PM EST): The patient has a history of coronary artery disease. Currently, the patient denies any chest pain at rest or with exertion. The patient continues on secondary preventive therapy for CAD, including: Isosorbide mononitrate, statin and beta estella. Of note, the patient states that his aspirin was recently discontinued by his finance lead due to significant peptic ulcer disease. Will attempt to obtain the records from the patient's finance lead in order to review this. If so, then we may need to consider the use of clopidogrel monotherapy. Orders: Comprehensive metabolic panel; Future Lipid panel; Future Encounters Date Type Department Care Team Description 06/13/2024 9:50 AM EST Office Visit [facility] [address] [place] [phone] Mahin Perea MD Coronary artery disease involving lovelock coronary artery of [place]ock heart without angina pectoris (Primary Dx); Pure hypercholesterolemia from Last 3 Months Social History Tobacco Use Types Packs/Day Years [...] on file Sexual Orientation Not on file Obstetrics History Last Filed Vital Signs Vital Sign Reading [...] Mass Index 26.85 06/13/2024 9:41 AM EST Plan of Treatment Health Maintenance Due Date Last Done Comments Cholesterol Screening (Lipid Panel) 05/25/2022 Colorectal Cancer Screening: Colonoscopy 05/25/2022 Depression Screening 05/25/2022 HIV Screening 05/25/2022 Hepatitis C Screening 05/25/2022 Lung Cancer Screening (Low Dose CT) 05/25/2022 Medicare Annual Wellness Visit 05/25/2022 Social Influencers of Health Screening 05/25/2022 Hypertension/CHF/CAD Annual BMP Blood Test 06/05/2022 DTaP,Tdap,and Td Vaccines (2 - Td or Tdap) 11/27/2022 11/27/2012 COVID-19 Vaccine ( season) 2024 04/11/2023, 07/14/2022, 10/12/2021, Additional history exists RSV Immunization Patients 60+ Years Old (1 - 1-dose 75+ series) 2035 Zoster Vaccines Completed 12/09/2023, 11/26/2022 Influenza Vaccine Completed 03/04/2024, , 04/05/2022, Additional history exists Pneumococcal Vaccine: 50+ Years Completed 03/04/2024, 03/24/2016 Pneumococcal Vaccine: Pediatrics (0 to 5 Years) and At-Risk Patients (6 to 64 Years) Aged Out 03/04/2024, 03/24/2016 No longer eligibl e based on patient's age to complete this topic HIB Vaccines Aged Out No longer eligi ble based on patient's age to complete this topic HPV Vaccines Aged Out No longer eligi ble based on patient's age to complete this topic Hepatitis A Vaccines Aged Out No long er eligible based on patient's age to complete this topic Hepatitis B Vaccines Aged Out No long er eligible based on patient's age to complete this topic IPV Vaccines Aged Out No longer eligi ble based on patient's age to complete this topic MMR Vaccines Aged Out No longer eligi ble based on patient's age to complete this topic Meningococcal ACWY Vaccine Aged Out N o longer eligible based on patient's age to complete this topic Meningococcal B Vacine Aged Out No lo nger eligible based on patient's age to complete this topic RSV Immunization Patients Under 20 months Aged Out No longer eligible based on patient's age to complete this topic Varicella Vaccines Aged Out No longer eligible based on patient's age to complete this topic Insurance [employer] MEDICARE Member Subscriber Plan / Payer (Ef fective 2020-Present) Name:Igor Arcos Relation to Subscriber:Self Name:Igor Arcos Payer ID:[id number] Group ID:[id number] Type:Not on file Address: [place] [address] [address] [phone] Care Teams Bale Piler Relationship Specialty Start Date End Date Emmy Eubanks MD [address] [place] [address] [address] [facility] [place] [address] PCP - General 10/03/16
--- OUTSIDE RECORDS SUMMARY | 2024-08-22 16:05 | XMS_ITS | Patient Health Record ---
Author Organization [facility] Address [address] [place] [address] Care Team Providers Care Manager Community Relations Name Role Phone Emmy Eubanks MD Primary Care Provider Jeffy Pittman [phone] ALLERGIES Allergen (clinical drug ingredient) Drug/Non Drug Allergy documented on EMR Reaction Allergy Type Onset Date Status morphine Morphine Unknown Drug Allergy Active RESULTS Component Value Reference Range Notes Pathology (Not yet reviewed by provider) Interpretation: Performing Lab:[facility], [address] [place] [id number] Notes/Report: REASON FOR REFERRAL No Information MEDICATIONS Medication SIG (Take, Route, Frequency, Duration) [...] the procedure for 1 day 01/31/2024 Active Isosorbide Mononitrate ER 30 MG TAKE 1 TABLET BY MOUTH EVERY DAY AT DINNER TIME Oral for 90 Active MiraLax 17 GM/SCOOP From a 238Gm bottle use 1 scoop mixed with 8 ounces of fluid every 30 minutes for 4 doses Orally Take this two days before your colonoscopy for 1 days 02/03/2024 Active Atorvastatin Calcium 80 MG TAKE 1 TABLET BY MOUTH EVERY DAY Oral for 90 Active Pantoprazole Sodium 40 MG TAKE 1 TABLET (40 MG) BY MOUTH TWICE DAILY. DO NOT CRUSH, CHEW, OR SPLIT. Oral for 90 Active Dulcolax 5 MG 2 Orally Once two da ys before your colonoscopy for 1 days 02/03/2024 Active Metoprolol Succinate ER 25 MG Oral for 90 Active SOCIAL HISTORY Tobacco Use: Social History Observation Description Date Details (start date - stop date) Former Smoker NA - NA Sex Assigned At : Social History Observation Description Sex Assigned At Unknown Tobacco Use/Smoking Question Answer Notes Patient is a former smoker How long has it been since you last smoked? 1-5 years Alcohol Screen Question Answer Notes Did you have a drink contain ing alcohol in the past year? Yes How often did you have a dri nk containing alcohol in the past year? 2 to 4 times a month (2 points) How many drinks did you have on a typical day when you were drinking in the past year? 1 or 2 drinks (0 point) How often did you have 6 or more drinks on one occasion in the past year? Never (0 point) Points 2 Interpretation Negative PROBLEMS Problem Type ICD Code Onset Dates Problem Status W/U Status Risk SNOMED Code Notes Problem Gastro-esophageal reflux disease without esophagitis (K21.9) Active confirmed Gastro-esophage al reflux disease without esophagitis (138426092) Problem Chronic or unspecified peptic ulcer, site unspecified, with hemorrhage (K27.4) Active confirmed Chronic p eptic ulcer with hemorrhage (06731227) Problem Diverticulosis of large intestine without perforation or abscess without bleeding (K57.30) Active confirmed Diverticul ar disease of colon (437388426) Problem Duodenitis (K29.80) Active confirmed Duodenitis (88304197) Problem Positive colorectal cancer screening using Cologuard test (R19.5) Active confirmed Abnormal feces (022766969) VITAL SIGNS Blood pressure diastolic 00 mm Hg 01/16/2024 Height 5 ft 8 in in 01/16/2024 Blood pressure systolic 00 mm Hg 01/16/2024 Weight 174 lbs 01/16/2024 BMI 26.45 kg/m2 01/16/2024 Encounters Encounter Location Date Provider [place] [facility] [place] [address] [place] [id number] 05/20/2024 Jeffy Henao Colon polyps K63.5 ; Heme + stool R19.5 ; Diverticulosis of large intestine without perforation or abscess without bleeding K57.30 ; Gastro-esophageal reflux disease without esophagitis K21.9 ; Hiatal hernia K44.9 ; Duodenitis K29.80 and Personal history of peptic ulcer disease Z87.11 [facility] [address] [place] [address] 01/16/2024 Jeffy Henao Positive colorectal cancer screening using Cologuard test R19.5 and Chronic or unspecified peptic ulcer, site unspecified, with hemorrhage K27.4 [facility] [address] [place] [address] 01/16/2024 Jeffy Henao [facility] [address] [place] [address] 02/03/2024 Jeffy Henao ASSESSMENTS Encounter Date Diagnosis Assessment Notes Treatment Notes Treatment Clinical Notes 05/20/2024 Colon polyps (ICD-10 - K63.5) 05/20/2024 Heme + stool (ICD-10 - R19.5) 01/16/2024 Chronic or unspecified peptic ulcer, site unspecified, with hemorrhage (ICD-10 - K27.4) Stay on Pantoprazole once a day forever. Avoid all NSAIDs like Motrin, Ibuprofen, etc. Use only minimal alcohol--no more than a little bit and not every day 01/16/2024 Positive colorectal cancer screening using Cologuard test (ICD-10 - R19.5) 05/20/2024 Diverticulosis of large intestine without perforation or abscess without bleeding (ICD-10 - K57.30) 05/20/2024 Gastro-esophageal reflux disease without esophagitis (ICD-10 - K21.9) 05/20/2024 Hiatal hernia (ICD-1 0 - K44.9) 05/20/2024 Duodenitis (ICD-10 - K29.80) 05/20/2024 Personal history of peptic ulcer disease (ICD-10 - Z87.11) PLAN OF TREATMENT Pending Test Test Name Order Date Pathology 05/20/2024 Future Test Test Name Order Date UPPER GI ENDOSCOPY 01/16/2024 COLONOSCOPY 01/16/2024 Insurance Providers Payer Name Payer Address Payer Phone Subscriber Number Group Number Insured Name Patient Relationship to Insured Coverage Start Date Coverage End Date [facility] [address] Attn Claims ANDRÉS Cabrera [id number] ELIAS QURESHI Self - patient is the insured MEDICAL (GENERAL) HISTORY Medical History History ICD Code GI bleed from ulcer disease while recovering from his abdominal wall hernia surgery in October of 2023 [place] with previous stent place ment approximately 2015--negative stress test in spring COPD Denies DM,CVA,renal disease Hyperlipidemia Suboptimal CT Colonography s tudy in July of [address] Keen. The prep for the study was poor. Surgical History Surgery Date(Month/Year) Diverticul[place] [facility] [place]sigmoid resection/George's pouch with a temporary colostomy. Underwent a reversal of the colostomy with a temporary ileostomy at that time. This was also ultimately reversed by Dr. Keen. 2013 Some type of small bowel per foration and temporary ileostomy treated at [facility] approx 2015 Repair of a large abdominal wall hernia surgery with Dr. Addison in October of 2023-complicated with an upper GI bleed requiring upper endoscopy at that time. The surgery was done in [place], [place] 10/2023
== END 2024-08-22 13:25 | disposition home or self-care (01) ==
LOC: HO.LAB 13:24
PROVIDERS: PCP Internal Medicine; Visit Provider Internal Medicine
DX: E11.65 Type 2 diabetes mellitus with hyperglycemia (principal); K92.2 Gastrointestinal hemorrhage, unspecified; E78.00 Pure hypercholesterolemia, unspecified; Z12.5 Encounter for screening for malignant neoplasm of prostate
CPT/HCPCS: 36415; 80053; 80061; 82607; 82728; 82746; 83036; 83540; 84153; 84439; 84443; 85025; 85045

== ENCOUNTER 2024-08-26 13:43 | Outpatient (REF) | payer OTHER, SELFPAY ==
[2024-08-27 13:03] LABS: Creatinine Urine 313.58 mg/dL
--- OUTSIDE RECORDS SUMMARY | 2024-08-27 15:14 | XMS_ITS ---
Author Organization [facility] Address [address] [place] [address] Care Team Providers Care Numerical Control Machine Tool Operator Name Role Phone Po Emmy GUERRERO Primary Care Provider Jeffy Pittman [phone] MEDICATIONS Medication SIG (Take, Route, Fr equency, [...] ve Encounters Encounter Location Date Provider Diagnosis [facility] [address] [place] [phone] 02/03/2024 Jeffy Henao PLAN OF TREATMENT Medication [...]
--- OUTSIDE RECORDS SUMMARY | 2024-08-27 15:14 | XMS_ITS ---
Author Organization [facility] Address [address] [place] [address] Care Team Providers Care Dry Pan Feeder Name Role Phone Po Emmy GUERRERO Primary Care Provider Jeffy Pittman [phone] REASON FOR VISIT bowel prep MEDICATIONS Medication [...] Active Encounters Encounter Location Date Provider Diagnosis [facility] [address] [facility] [address] [place] [phone] 01/16/2024 Jeffy Henao PLAN OF TREATMENT Medication [...]
--- OUTSIDE RECORDS SUMMARY | 2024-08-27 15:14 | XMS_ITS | Referral Summary ---
Author Organization [facility] Address [address] [place] [address] Care Team Providers Care Hospital Food Service Worker Name Role Phone Emmy Eubanks Primary Care Provider [phone] Allergies Active Allergy Reactions Criticality Noted Date [...] At this time Igor has an approximately 95-hwry-jzgl history. Today we discussed the importance of [...] for surgery. Igor does not have a social media marketing specialist currently. Incisional hernia, without obstruction or gangre [...] Not on file Procedures * Due to [place] [employer] law, this organization might not be sharing negative HIV tests. Procedure Name Priority Date/Time Associated Diagnosis Comments COLONOSCOPY 09/28/2012 from Last 3 Months or Most Recently Relevant to Health Maintenance Results * Due to [place] [employer] law, this organization might not be sharing negative HIV tests. * COLONOSCOPY (09/28/2012) 09/28/2012 us Onbase Scan [facility] Final Resu lt from Last 3 Months or Most Recently Relevant to Health Maintenance Insurance [facility] Care Teams Hospital Food Service Worker Relationship Specialty Start Date End Date Emmy Eubanks [address] [place] [address] [place] [id number] PCP - General Internal Medicine 10/08/21
--- OUTSIDE RECORDS SUMMARY | 2024-08-27 15:14 | XMS_ITS | Clinical Summary ---
Author Organization [facility] Address [address] [place] [address] Care Team Providers Care Vegetable Washer Name Role Phone Emmy Eubanks Primary Care Provider [phone] Allergies Active Allergy Reactions Criticality Noted Date [...] At this time Igor has an approximately 59-uzvt-jcca history. Today we discussed the importance of [...] for surgery. Igor does not have a chinese teacher currently. Incisional hernia, without obstruction or gangre [...] complete this topic Procedures * Due to [place] [employer] law, this organization might not be sharing negative HIV tests. Procedure Name Priority Date/Time Associated Diagnosis Comments COLONOSCOPY 09/28/2012 from Last 3 Months or Most Recently Relevant to Health Maintenance Results * Due to [place] [employer] law, this organization might not be sharing negative HIV tests. * COLONOSCOPY (09/28/2012) 09/28/2012 us Onbase Scan [facility] Final Resu lt from Last 3 Months or Most Recently Relevant to Health Maintenance Insurance [facility] Care Teams Vegetable Washer Relationship Specialty Start Date End Date Emmy Eubanks [address] [place] [address] [place] [id number] PCP - General Internal Medicine 10/08/21
--- OUTSIDE RECORDS SUMMARY | 2024-08-27 15:14 | XMS_ITS | Patient Health Record ---
Author Organization [facility] Address [address] [place] [address] Care Team Providers Care Drum Printer Name Role Phone Emmy Eubanks MD Primary Care Provider Jeffy Pittman [phone] ALLERGIES Allergen (clinical drug ingredient) Drug/Non Drug Allergy documented on EMR Reaction Allergy Type Onset Date Status morphine Morphine Unknown Drug Allergy Active RESULTS Component Value Reference Range Notes Pathology (Not yet reviewed by provider) Interpretation: Performing Lab:[facility], [address] [place] [phone] Notes/Report: REASON FOR REFERRAL No Information MEDICATIONS [...] confirmed Gastro-esophage al reflux disease without esophagitis (081209813) Problem Chronic or unspecified peptic ulcer, site unspecified, with hemorrhage (K27.4) Active confirmed Chronic p eptic ulcer with hemorrhage (38280116) Problem Diverticulosis of large intestine without perforation or abscess without bleeding (K57.30) Active confirmed Diverticul ar disease of colon (123276362) Problem Duodenitis (K29.80) Active confirmed Duodenitis (26044105) Problem Positive colorectal cancer screening using Cologuard test (R19.5) Active confirmed Abnormal feces (939118460) VITAL SIGNS Blood pressure diastolic 00 mm Hg 01/16/2024 Height 5 ft 8 in in 01/16/2024 Blood pressure systolic 00 mm Hg 01/16/2024 Weight 174 lbs 01/16/2024 BMI 26.45 kg/m2 01/16/2024 Encounters Encounter Location Date Provider Diagnosis [facility] [address] [place] [id number] 05/20/2024 Jeffy Henao Colon polyps K63.5 ; Heme + stool R19.5 ; Diverticulosis of large intestine without perforation or abscess without bleeding K57.30 ; Gastro-esophageal reflux disease without esophagitis K21.9 ; Hiatal hernia K44.9 ; Duodenitis K29.80 and Personal history of peptic ulcer disease Z87.11 [facility] [address] [place] [address] 01/16/2024 Jeffy Henao Positive colorectal cancer screening using Cologuard test R19.5 and Chronic or unspecified peptic ulcer, site unspecified, with hemorrhage K27.4 [facility] [address] [place] [address] 01/16/2024 Jeffy Henao [facility] [address] [place] [address] 02/03/2024 Jeffy Henao ASSESSMENTS Encounter Date Diagnosis [...] Insured Coverage Start Date Coverage End Date [facility] [address] Attn Claims [place]RÉ[place] [id number] ELAIS QURESHI Self - patient is the insured MEDICAL (GENERAL) HISTORY Medical History History ICD Code GI bleed from ulcer disease while recovering from his abdominal wall hernia surgery in October of 2023 [place] with previous stent place ment approximately 2015--negative stress test in spring COPD Denies DM,CVA,renal disease Hyperlipidemia Suboptimal CT Colonography s tudy in July of [address] Keen. The prep for the study was poor. Surgical History Surgery Date(Month/Year) Diverticulitis with surgery at [facility] with Dr. Keen-sigmoid resection/George's pouch with a temporary colostomy. Underwent a reversal of the colostomy with a temporary ileostomy at that time. This was also ultimately reversed by Dr. Keen. 2013 Some type of small bowel per foration and temporary ileostomy treated at [facility] approx 2015 Repair of a large abdominal wall hernia surgery with Dr. Addison in October of 2023-complicated with an upper GI bleed requiring upper endoscopy at that time. The surgery was done in [place], [place] 10/2023
--- OUTSIDE RECORDS SUMMARY | 2024-08-27 15:14 | XMS_ITS | Clinical Summary ---
Author Organization [facility] [employer] [facility] Address [address] [place] [address] Phone Care Team Providers Care Palm Gatherer Name Role Phone Emmy Eubanks MD Primary Care Provider [phone] Allergies Active Allergy Reactions Criticality Noted Date [...] his aspirin was recently discontinued by his park recreation manager due to significant peptic ulcer disease. Will attempt to obtain the records from the patient's park recreation manager in order to review this. If so, then we may need to consider the use of clopidogrel monotherapy. Orders: Comprehensive metabolic panel; Future Lipid panel; Future Encounters Date Type Department Care Team Description 06/13/2024 9:50 AM EST Office Visit [facility] [address] [facility] [address] [place] [phone] Mahin Perea MD Coronary artery disease involving seneca coronary artery of seneca heart without angina pectoris (Primary Dx); Pure [...] ID:[id number] Group ID:ICO Type:Not on file Address: [place] [address] [address] [phone] Care Teams Palm Gatherer Relationship Specialty Start Date End Date Emmy Eubanks MD [address] [place] [address] [address] [facility] [place] [address] PCP - General 10/03/16
--- OUTSIDE RECORDS SUMMARY | 2024-08-27 15:14 | XMS_ITS ---
Author Organization [facility] Address [address] [place] [address] Care Team Providers Care Alemite Operator Name Role Phone Po Emmy GUERRERO Primary Care Provider Jeffy Pittman [phone] REASON FOR VISIT positive colon ca screening using cologuard,chronic peptic ulcer PROBLEMS Problem Type ICD Code Onset Dates Problem Status W/U Status Risk SNOMED Code Notes Problem Diverticulosis of large intestine without perforation or abscess without bleeding (K57.30) Active confirmed Diverticul ar disease of colon (304104456) Problem Gastro-esophageal reflux disease without esophagitis (K21.9) Active confirmed Gastro-esophage al reflux disease without esophagitis (899701213) Problem Duodenitis (K29.80) Active confirmed Duodenitis (59027945) Encounters Encounter Location Date Provider Diagnosis [facility] Outpatient [address] [place] [id number] 05/20/2024 Jeffy Henao Colon polyps K63.5 ; [...]
--- OUTSIDE RECORDS SUMMARY | 2024-08-27 15:14 | XMS_ITS | Encounter Summary ---
Author Organization [facility] Address [address] [place] [address] Care Team Providers Care Print Production Manager Name Role Phone Emmy Eubanks MD Primary Care Provider [phone] Encounter Details Date Type Department Care Team (Latest Contact Info) Description 06/13/2024 9:50 AM EST Office Visit [facility] [address] [place] [address] Mahin Perea MD [address] [place] [address] [address] [place], [place] [phone] Coronary artery disease involving tulalip coronary artery of [place]ip heart without angina pectoris (Primary Dx); Pure [...] CAD, including: Isosorbide mononitrate, statin and beta setella. Of note, the patient states that his aspirin was recently discontinued by his land conservation specialist due to significant peptic ulcer disease. Will attempt to obtain the records from the patient's land conservation specialist in order to review this. If so, [...] Perea MD - 06/13/2024 9:50 AM EST [facility] Outpatient Follow Up Note [...] ulcer disease with Dr. Henao (gastroenterology at [facility]). Thepatient states that he was advised by his land conservation specialist to avoid the use of aspirin. Cardiac [...] Assessment & Plan Coronary artery disease involving tulalip coronary artery of tul[place]ip heart without angina pectoris The patient has a history of coronary artery disease. Currently, the patient denies any chest pain at rest or with exertion. The patient continues on secondary preventive therapy for CAD, including: Isosorbide mononitrate, statin and beta estella. Of note, the patient states that his aspirin was recently discontinued by his land conservation specialist due to significant peptic ulcer disease. Will attempt to obtain the records from the patient's land conservation specialist in order to review this. If so, [...] panel Lab Routine Coronary artery disease involving tulalip coronary artery of tulalip heart without angina pectoris 1 Occurrences starting 06/13/2024 until 06/13/2025 Lipid panel Lab Routine Coronary artery disease involving tulalip coronary artery of tulalip heart without angina pectoris 1 Occurrences starting 06/13/2024 until 06/13/2025 documented as of this encounter Visit Diagnoses Diagnosis Coronary artery disease involving tulalip coronary artery of tulalip heart without angina pectoris- Primary Pure hypercholesterolemia [...] split. added in this encounter Care Teams Print Production Manager Relationship Specialty Start Date End Date Emmy Eubanks MD [address] [place] [address] Dr [address] [facility] [place] [address] PCP - General 10/03/16 documented as of this encounter
== END 2024-08-26 13:44 | disposition home or self-care (01) ==
LOC: HO.LNP 13:43
PROVIDERS: PCP Internal Medicine; Visit Provider Internal Medicine
DX: Z00.00 Encounter for general adult medical examination without abnormal findings (principal); I25.10 Atherosclerotic heart disease of native coronary artery without angina pectoris; E78.00 Pure hypercholesterolemia, unspecified; E11.65 Type 2 diabetes mellitus with hyperglycemia; J43.9 Emphysema, unspecified; E66.3 Overweight; K76.0 Fatty (change of) liver, not elsewhere classified
CPT/HCPCS: 82043; 82570; 96127; 99396

== ENCOUNTER 2024-08-26 13:43 | Outpatient (AMB) | payer OTHER, SELFPAY ==
--- NOTE | 2024-08-26 13:47 | MHC.PC.OV ---
Vital Signs 08/26/24 13:50 08/26/24 14:22 Height 5 ft 8 in Weight 179 lb 4 oz BMI 27.3 BP 148/94 H 134/80 Blood Pressure Location Lt brachial Lt brachial Position Sitting Sitting Pulse 78 Pulse Source Pulse Oximeter Temp 97.3 F Temp Source Temporal Artery Scan Pulse Oximetry (%) 95 Oxygen Delivery Method Room Air Intake Visit Reasons: annual exam Intake Note: Patient is here today for a physical. Lifestyle Consultant Required: No Accompanied by: Self / Same As Patient Allergies morphine [MORPHINE] Allergy (Severe, Verified 08/26/24 13:48) hallucinations rosuvastatin Allergy (Intermediate, Verified 08/26/24 13:48) Rash metformin Adverse Reaction (Intermediate, Verified 08/26/24 13:48) skin reaction Medication List - Last Reconciled 08/26/24 by Emmy Eubanks MD atorvastatin 80 mg PO DAILY 90 days hydrocodone-chlorpheniramine 10-8 mg/5 mL 5 mL PO Q12H PRN isosorbide mononitrate ER 30 mg PO DAILY metoprolol succinate ER (Toprol XL) 25 mg PO DAILY nitroglycerin 0.4 mg sublingual Q5M PRN pantoprazole 40 mg PO BID Tobacco use date assessed: 08/26/24 Fall risk assessment: No Falls in past year Last assessed Fall Risk: 08/26/24 Dental Screening Dental Screen Date: 08/26/24 Did you have a dental visit in the last 12 months?: Yes Did you have a dental problem in the last 6 months where you did not have access to dental care?: No Was dental information given to patient?: Patient has dentist HPI annual exam HPI Details 64-year-old overweight male with a history of diabetes mellitus hypercholesterolemia coronary artery disease COPD abdominal wall hernia status post repair 11/13/2023 coming in for physical exam. [facility] Medical History Positive colorectal cancer screening using Cologuard test Lateral epicondylitis of left elbow Neck pain Impacted cerumen of right ear Tinea cruris COPD (chronic obstructive pulmonary disease) Abdominal wall hernia Tobacco abuse Obesity (BMI 30-39.9) Type 2 diabetes mellitus with hyperglycemia Hypercholesterolemia Coronary artery disease Surgical History Hx of heart artery stent History of hernia surgery History of colostomy reversal History of colonoscopy Family History (Updated 08/26/24 @ 14:25 by Emmy Eubanks MD) Father Past heart attack Cancer Myocardial infarction Maternal Uncle Myocardial infarction Mother No problems noted. Paternal Grandfather Myocardial infarction Social History (Updated 08/26/24 @ 14:26 by Emmy Eubanks MD) Housing: House Are you a primary healthcare management to a significant other at home: No Do you presently have visiting nurse or other home services: No Alcohol intake: current Alcohol intake frequency: a few times a month Alcohol type: wine Comment: once a week Patient Tobacco Use Status: Former Tobacco user Tobacco use type: Cigarette Cigarette Packs Per Day: 0.5 Cigarettes Per Day: 10 Years Smoked: 12 years old started e-Cigarette/Vaping Use: Never Used Second Hand Smoke Exposure: No service: No Current occupational status: unemployed and disabled Cognitive needs: No Hearing needs: No Vision needs: No Questionnaire PHQ-9 Over the last 2 weeks, how often have you been bothered by any of the following problems? 1. Little interest or pleasure in doing things: not at all 2. Feeling down, depressed, or hopeless: not at all 3. Trouble falling or staying asleep, or sleeping too much: not at all 4. Feeling tired or having little energy: not at all 5. Poor appetite or overeating: not at all 6. Feeling bad about yourself - or that you are a failure or have let yourself or your family down: not at all 7. Trouble concentrating on things, such as reading the newspaper or watching television: not at all 8. Moving or speaking so slowly that other people could have noticed. Or the opposite - being so fidgety or restless that you have been moving around a lot more than usual: not at all 9. Thoughts that you would be better off or of hurting yourself in some way: not at all Total score: 0 Depression Screening Interpretation: Negative Depression Screening Done: Yes 94018 - PHQ-9 Billing: Yes Source: Developed by Drs. Jeffy Riddle, Hailey Reynolds, Triston Melendez and colleagues, with an educational lu from [email or web address]. Thrive Questionnaire Date Thrive assessed: 08/26/24 I am a: Patient What is your living situation today?: I have a steady place to live Within the past 12 months, did the food you bought not last and you didn't have the money to get more?: Never true Within the past 12 months, did you worry whether your food would run out before you got money to buy more?: Never true Do you have trouble paying for medicines?: No Do you have trouble getting transportation to medical appointments?: No Do you have trouble paying your heating and electricity bill?: No Do you have trouble taking care of your child, family member or friend?: No Do you have trouble with day-to-day activities such as bathing, preparing meals, shopping, managing finances, etc.?: No Are you currently unemployed and looking for a job?: No Are you interested in more education?: No Please select the resources that you would like help with: None Currently or been in a relationship where the following occur: No concerns reported THRIVE Score: 0 AUDIT C Alcohol Use Questionnaire (AUDIT-C) 1. How often do you have a drink containing alcohol?: Monthly or less 2. How many drinks containing alcohol do you have on a typical day when you are drinking?: 1 or 2 3. How often do you have six or more drinks on one occasion?: Never Total Score: 1 Score Reviewed/Action Taken: Yes GORDO-7 AMB Questionnaire GORDO-7 Date GORDO - 7 assessed: 08/26/24 Feeling nervous, anxious, or on edge: 0 = Not at all Not being able to stop or control worryin = Not at all Worrying too much about different things: 0 = Not at all Trouble relaxin = Not at all Being so restless that it is hard to sit still: 0 = Not at all Becoming easily annoyed or irritable: 0 = Not at all Feeling afraid as if something awful might happen: 0 = Not at all Total GORDO-7 score (0-4 normal; 5-9 mild; 10-14 moderate; 15-21 severe): 0 Source: Developed by Drs. Jeffy Riddle, Hailey Reynolds, Triston Melendez and colleagues, with an educational lu from [email or web address]. GORDO-7 Assessment Billing GORDO-7 Assessment Tool: GORDO-7 Assessment 78489 Review of Systems Const Denies poor appetite and Denies weakness Eyes Denies no additional complaints ENT Reports Normal hearing present, Denies dizziness, Denies nasal congestion, Denies tinnitus and Denies sore throat Card Denies chest pain, Denies syncope, Denies rapid heart rate and Denies dyspnea Resp Denies cough and Denies dyspnea GI Denies change in stool character, Reports constipation, Denies diarrhea, Denies nausea and Denies vomiting Denies dysuria and Denies urinary frequency Neuro Reports Normal hearing present, Denies confusion, Denies dizziness, Denies syncope and Denies weakness Psych Denies confusion Physical exam (Primary Care) Vital Signs: Last Vital Signs Temp 97.3 F 08/26/24 13:50 Pulse 78 08/26/24 13:50 BP 134/80 08/26/24 14:22 Pulse Ox 95 08/26/24 13:50 Oxygen Delivery Method Room Air 08/26/24 13:50 BMI result Body Mass Index 27.3 Tobacco/Smoking Status: Tobacco use Status Tobacco use date assessed 08/26/24 08/26/24 13:54 Patient Tobacco Use Status Former Tobacco user 08/26/24 14:26 Tobacco use type Cigarette 08/26/24 14:26 e-Cigarette/Vaping Use Never Used 08/26/24 14:26 PHQ-9: PHQ-9 Score PHQ-9: Total score 0 08/26/24 14:17 Depression Screening Interpretation: Negative Thrive Assessment: Date of Thrive Assessment Date Thrive assessed 08/26/24 08/26/24 13:48 Currently or been in a relationship where the following occur: No concerns reported Const General: No confusion Orientation/consciousness: No confusion HENMT Head: Yes normocephalic Ears: external ears normal and TM's normal bilaterally Face and sinus: Yes normal facial exam Mouth: moist mucous membranes Throat: Yes tonsils normal Eyes Conjunctivae: conjunctivae normal Pupils: Equal, round and reactive pupils present and Pupil accommodation reflex normal Direct Ophthalmoscopy: normal light reflex Neck Neck: No lymphadenopathy Thyroid: Thyroid normal Chest Chest palpation & inspection: normal inspection of the chest Resp Effort & Inspection: normal respiratory effort and no audible wheezes Auscultation: clear to auscultation bilaterally, no crackles, no wheezes and lung sounds not diminished Cardio Rate: regular rate Rhythm: regular rhythm Peripheral pulses: radial pulses present and dorsalis pedis present GI Other: colon test done 04/2024 Palpation (GI): no masses Auscultation: normal bowel sounds and normoactive bowel sounds Rectal Exam - Male: Yes deferred Male General Exam: Yes normal external exam Skin General skin exam: no rashes or lesions noted Rashes: no rashes Neuro General: No confusion Cranial nerves: Yes Equal, round and reactive pupils present and Yes Normal hearing present Cognition (Neuro): normal cognition Gait exam (Neuro): Normal gait present Motor exam (neuro): 5/5 motor strength present throughout Deep tendon reflexes (DTR's): Right brachioradialis reflex intensity grade: 2+, Left brachioradialis reflex intensity grade: 2+, Right patellar reflex intensity grade: 2+ and Left patellar reflex intensity grade: 2+ Extrem General: No edema Coding Level of Care Code Est Pt Prev Care 40-64y(28105) Diagnoses Annual physical exam Z00.00 Coronary artery disease involving [place] coronary artery of [place] heart without angina pectoris I25.10 Associated angina: without angina Coronary Disease-Associated Artery/Lesion type: [place] artery [place] vs. transplanted heart: [place] heart Hypercholesterolemia E78.00 Type 2 diabetes mellitus with hyperglycemia, without long-term current use of insulin E11.65 Diabetes mellitus ocean transportation intermediary insulin use: without halfway use Pulmonary emphysema, unspecified emphysema type J43.9 COPD type: emphysema Emphysema type: unspecified Overweight (BMI 25.0-29.9) E66.3 Fatty liver K76.0 Additional Codes GORDO-7 Assessment Billing - GORDO-7 Assessment Tool: GORDO-7 Assessment 51401 ([id number]) PHQ-9 - 15193 - PHQ-9 Billing: Yes ([id number]) Assessment & Plan Assessment & Plan (1) Annual physical exam: Code(s): Z00.00 - Encounter for general adult medical examination without abnormal findings Category: Medical Plan: Patient is advised to eat healthy, keep well hydrated, keep active and have adequate sleep. (2) Coronary artery disease: Comment: Stent May 2015 echo normal September 2018-follows w/PV Cardiology Code(s): I25.10 - Atherosclerotic heart disease of [place] coronary artery without angina pectoris Category: Medical Qualifiers: Associated angina: without angina Coronary Disease-Associated Artery/Lesion type: [place] artery [place] vs. transplanted heart: [place] heart Qualified Code(s): I25.10 - Atherosclerotic heart disease of [place] coronary artery without angina pectoris Plan: Control the cholesterol, weight, blood pressure, diabetes (3) Hypercholesterolemia: Code(s): E78.00 - Pure hypercholesterolemia, unspecified Category: Medical Plan: Avoid fried foods, chicken skin, eggs, butter margarine, pastries and meat. Be it pork or beef they have a lot of cholesterol placed on 80 mg of atorvastatin once a day. LDL goal of less than 70 and triglyceride of less than 150. (4) Type 2 diabetes mellitus with hyperglycemia: Comment: no Rx Code(s): E11.65 - Type 2 diabetes mellitus with hyperglycemia Category: Medical Qualifiers: Diabetes mellitus ocean transportation intermediary insulin use: without ocean transportation intermediary use Qualified Code(s): E11.65 - Type 2 diabetes mellitus with hyperglycemia Plan: Decrease the amount of carbohydrate intake, pasta, bread, rice and potatoes are all sugar and that is aside from all the sweet stuff, remember that fruits are good but they are Sweet also. Hemoglobin A1c goal of less than 6.5. Did discuss about the sugars. Advised to be seen by Ophthalmology and Podiatry (5) COPD (chronic obstructive pulmonary disease): Comment: Severe obstructive airway partial response PFT April 2019 Code(s): J44.9 - Chronic obstructive pulmonary disease, unspecified Category: Medical Qualifiers: COPD type: emphysema Emphysema type: unspecified Qualified Code(s): J43.9 - Emphysema, unspecified Plan: Stable has not been requiring any inhaler (6) Overweight (BMI 25.0-29.9): Code(s): E66.3 - Overweight Category: Medical Plan: Diet and exercise (7) Fatty liver: Code(s): K76.0 - Fatty (change of) liver, not elsewhere classified Category: Medical Plan: Low-fat diet and exercise Medications: Refilled hydrocodone-chlorpheniramine 10-8 mg/5 mL 5 mL PO Q12H PRN 70 mL 0RF cold symptoms
[2024-08-26 13:50] VITALS: BP 148/94; PULSE 78; TEMP 36.3; O2SAT 95; BMI 27.3
[2024-08-26 14:22] VITALS: BP 134/80
--- OUTSIDE RECORDS SUMMARY | 2024-08-26 16:11 | XMS_ITS | Patient Health Record ---
Author Organization [facility] Address [address] [place] [address] Care Team Providers Care Metal Buildings Assembler Name Role Phone Emmy Eubanks MD Primary Care Provider Jeffy Pittman [phone] ALLERGIES Allergen (clinical drug ingredient) Drug/Non Drug Allergy documented on EMR Reaction Allergy Type Onset Date Status morphine Morphine Unknown Drug Allergy Active RESULTS Component Value Reference Range Notes Pathology (Not yet reviewed by provider) Interpretation: Performing Lab:[facility], [address] [place] [phone] Notes/Report: REASON FOR REFERRAL No Information MEDICATIONS [...] confirmed Gastro-esophage al reflux disease without esophagitis (706906202) Problem Chronic or unspecified peptic ulcer, site unspecified, with hemorrhage (K27.4) Active confirmed Chronic p eptic ulcer with hemorrhage (54592431) Problem Diverticulosis of large intestine without perforation or abscess without bleeding (K57.30) Active confirmed Diverticul ar disease of colon (253797208) Problem Duodenitis (K29.80) Active confirmed Duodenitis (05646170) Problem Positive colorectal cancer screening using Cologuard test (R19.5) Active confirmed Abnormal feces (503860128) VITAL SIGNS Blood pressure diastolic 00 mm Hg 01/16/2024 Height 5 ft 8 in in 01/16/2024 Blood pressure systolic 00 mm Hg 01/16/2024 Weight 174 lbs 01/16/2024 BMI 26.45 kg/m2 01/16/2024 Encounters Encounter Location Date Provider Diagnosis [facility] [place] [place] Out[place] [address] [place] [id number] 05/20/2024 Jeffy Henao Colon polyps K63.5 ; Heme + stool R19.5 ; Diverticulosis of large intestine without perforation or abscess without bleeding K57.30 ; Gastro-esophageal reflux disease without esophagitis K21.9 ; Hiatal hernia K44.9 ; Duodenitis K29.80 and Personal history of peptic ulcer disease Z87.11 [facility] [address] [place] [address] 01/16/2024 Jeffy Henao Positive colorectal cancer screening using Cologuard test R19.5 and Chronic or unspecified peptic ulcer, site unspecified, with hemorrhage K27.4 [facility] [address] [place] [address] 01/16/2024 Jeffy Henao [facility] [address] [place] [address] 02/03/2024 Jeffy Henao ASSESSMENTS Encounter Date Diagnosis [...] Insured Coverage Start Date Coverage End Date [facility] [address] Attn Claims ANDRÉS Cabrera [id number] ELIAS QURESHI Self - patient is the insured MEDICAL (GENERAL) HISTORY Medical History History ICD Code GI bleed from ulcer disease while recovering from his abdominal wall hernia surgery in October of 2023 [place] with previous stent place ment approximately 2015--negative stress test in spring COPD Denies DM,CVA,renal disease Hyperlipidemia Suboptimal CT Colonography s tudy in July of [address] Keen. The prep for the study was poor. Surgical History Surgery Date(Month/Year) Diverticulitis with surgery at [facility] [place] [place] with Dr. Keen-sigmoid resection/George's pouch with a temporary colostomy. Underwent a reversal of the colostomy with a temporary ileostomy at that time. This was also ultimately reversed by Dr. Keen. 2013 Some type of small bowel per foration and temporary ileostomy treated at [facility] approx 2015 Repair of a large abdominal wall hernia surgery with Dr. Addison in October of 2023-complicated with an upper GI bleed requiring upper endoscopy at that time. The surgery was done in [place], [place] 10/2023
--- OUTSIDE RECORDS SUMMARY | 2024-08-26 16:11 | XMS_ITS ---
Author Organization [facility] Address [address] [place] [address] Care Team Providers Care Early Interventionist Name Role Phone Po Emmy GUERRERO Primary Care Provider Jeffy Pittman [phone] REASON FOR VISIT bowel prep MEDICATIONS Medication [...] Active Encounters Encounter Location Date Provider Diagnosis [facility] [address] [place] [address] 01/16/2024 Jeffy Henao PLAN OF TREATMENT Medication [...]
--- OUTSIDE RECORDS SUMMARY | 2024-08-26 16:12 | XMS_ITS | Referral Summary ---
Author Organization [facility] Address [address] [place] [address] Care Team Providers Care Fisher Line Name Role Phone Emmy Eubanks Primary Care Provider [phone] Allergies Active Allergy Reactions Criticality Noted Date [...] At this time Igor has an approximately 22-wbia-bwyo history. Today we discussed the importance of [...] for surgery. Igor does not have a web feeder currently. Incisional hernia, without obstruction or gangre [...] Not on file Procedures * Due to [place] [employer] law, this organization might not be sharing negative HIV tests. Procedure Name Priority Date/Time Associated Diagnosis Comments COLONOSCOPY 09/28/2012 from Last 3 Months or Most Recently Relevant to Health Maintenance Results * Due to [place] [employer] law, this organization might not be sharing negative HIV tests. * COLONOSCOPY (09/28/2012) 09/28/2012 us Onbase Scan [facility] Final Resu lt from Last 3 Months or Most Recently Relevant to Health Maintenance Insurance [facility] Care Teams Fisher Line Relationship Specialty Start Date End Date Emmy Eubanks [address] [place] [address] [place] [id number] PCP - General Internal Medicine 10/08/21
--- OUTSIDE RECORDS SUMMARY | 2024-08-26 16:12 | XMS_ITS ---
Author Organization [facility] Address [address] [place] [address] Care Team Providers Care Alarm Signaler Name Role Phone Po Emmy GUERRERO Primary Care Provider Jeffy Pittman [phone] REASON FOR VISIT positive colon ca screening using cologuard,chronic peptic ulcer PROBLEMS Problem Type ICD Code Onset Dates Problem Status W/U Status Risk SNOMED Code Notes Problem Diverticulosis of large intestine without perforation or abscess without bleeding (K57.30) Active confirmed Diverticul ar disease of colon (077418934) Problem Gastro-esophageal reflux disease without esophagitis (K21.9) Active confirmed Gastro-esophage al reflux disease without esophagitis (506151045) Problem Duodenitis (K29.80) Active confirmed Duodenitis (09665130) Encounters Encounter Location Date Provider Diagnosis [facility] Outpatient [address] [place] [id number] 05/20/2024 Jeffy Henao Colon polyps K63.5 ; [...]
--- OUTSIDE RECORDS SUMMARY | 2024-08-26 16:12 | XMS_ITS | Clinical Summary ---
Author Organization [facility] [employer] [facility] Address [address] [address] Phone Care Team Providers Care Casket Liner Name Role Phone Emmy Eubanks MD Primary Care Provider [phone] Allergies Active Allergy Reactions Criticality Noted Date [...] his aspirin was recently discontinued by his schedule clerk due to significant peptic ulcer disease. Will attempt to obtain the records from the patient's schedule clerk in order to review this. If so, then we may need to consider the use of clopidogrel monotherapy. Orders: Comprehensive metabolic panel; Future Lipid panel; Future Encounters Date Type Department Care Team Description 06/13/2024 9:50 AM EST Office Visit [facility] [address] [place] [phone] Mahin Perea MD Coronary artery disease involving little traverse coronary artery of little traverse heart without angina pectoris (Primary Dx); Pure [...] ID:[id number] Group ID:ICO Type:Not on file Address: [place] [address] [address] [place] [id number] Care Teams Casket Liner Relationship Specialty Start Date End Date Emmy Eubanks MD [address] [place] [address] [address] [facility] [place] [address] PCP - General 10/03/16
--- OUTSIDE RECORDS SUMMARY | 2024-08-26 16:12 | XMS_ITS | Encounter Summary ---
Author Organization [facility] Address [address] [place] [address] Care Team Providers Care Investigator Name Role Phone Emmy Eubanks MD Primary Care Provider [phone] Encounter Details Date Type Department Care Team (Latest Contact Info) Description 06/13/2024 9:50 AM EST Office Visit [facility] [address] [place] [address] Mahin Perea MD [address] [place] [address] [address] [place], [place] [phone] Coronary artery disease involving augustine coronary artery of augustine heart without angina pectoris (Primary Dx); Pure [...] his aspirin was recently discontinued by his assistant head cashier due to significant peptic ulcer disease. Will attempt to obtain the records from the patient's assistant head cashier in order to review this. If so, [...] Perea MD - 06/13/2024 9:50 AM EST [facility] Outpatient Follow Up Note PCP: [...] ulcer disease with Dr. Henao (gastroenterology at [facility]). Thepatient states that he was advised by his assistant head cashier to avoid the use of aspirin. 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 Currently, the patient denies any chest pain at rest or with exertion. The patient continues on secondary preventive therapy for CAD, including: Isosorbide mononitrate, statin and beta estella. Of note, the patient states that his aspirin was recently discontinued by his assistant head cashier due to significant peptic ulcer disease. Will attempt to obtain the records from the patient's assistant head cashier in order to review this. If so, [...] panel Lab Routine Coronary artery disease involving augustine coronary artery of augustine heart without angina pectoris 1 Occurrences starting 06/13/2024 until 06/13/2025 Lipid panel Lab Routine Coronary artery disease involving augustine coronary artery of augustine heart without angina pectoris 1 Occurrences starting 06/13/2024 until 06/13/2025 documented as of this encounter Visit Diagnoses Diagnosis Coronary artery disease involving augustine coronary artery of augustine heart without angina pectoris- Primary Pure hypercholesterolemia [...] split. added in this encounter Care Teams Investigator Relationship Specialty Start Date End Date Emmy Eubanks MD [address] [place] [address] Dr [address] [facility] [place] [address] PCP - General 10/03/16 documented as of this encounter
--- OUTSIDE RECORDS SUMMARY | 2024-08-26 16:12 | XMS_ITS | Clinical Summary ---
Author Organization [facility] Address [address] [place] [address] Care Team Providers Care Charter Pilot Name Role Phone Emmy Eubanks Primary Care Provider [phone] Allergies Active Allergy Reactions Criticality Noted Date [...] At this time Igor has an approximately 78-nczr-logv history. Today we discussed the importance of [...] for surgery. Igor does not have a curator natural history museum currently. Incisional hernia, without obstruction or gangre ne 04/27/2015 Assessment & Plan (10/14/2021 2:41 PM EDT): Iogr was seen and examined by myself and [...] complete this topic Procedures * Due to [place] [employer] law, this organization might not be sharing negative HIV tests. Procedure Name Priority Date/Time Associated Diagnosis Comments COLONOSCOPY 09/28/2012 from Last 3 Months or Most Recently Relevant to Health Maintenance Results * Due to [place] [employer] law, this organization might not be sharing negative HIV tests. * COLONOSCOPY (09/28/2012) 09/28/2012 us Onbase Scan [facility] Final Resu lt from Last 3 Months or Most Recently Relevant to Health Maintenance Insurance [facility] Care Teams Charter Pilot Relationship Specialty Start Date End Date Emmy Eubanks [address] [place] [address] [place] [id number] PCP - General Internal Medicine 10/08/21
--- OUTSIDE RECORDS SUMMARY | 2024-08-26 16:12 | XMS_ITS ---
Author Organization [facility] Address [address] [place] [address] Care Team Providers Care Court Supervisor Name Role Phone Po Emmy GUERRERO Primary Care Provider Jeffy Pittman [phone] MEDICATIONS Medication SIG (Take, Route, Fr equency, [...] ve Encounters Encounter Location Date Provider Diagnosis [facility] [address] [place] [phone] 02/03/2024 Jeffy Henao PLAN OF TREATMENT Medication [...]
== END 2024-08-26 14:41 | disposition home or self-care (01) ==
PROVIDERS: PCP Internal Medicine; Visit Provider Internal Medicine
DX: Z00.00 Encounter for general adult medical examination without abnormal findings (principal); E11.65 Type 2 diabetes mellitus with hyperglycemia; J43.9 Emphysema, unspecified; I25.10 Atherosclerotic heart disease of native coronary artery without angina pectoris; E78.00 Pure hypercholesterolemia, unspecified; E66.3 Overweight; K76.0 Fatty (change of) liver, not elsewhere classified

== ENCOUNTER 2025-02-26 08:53 | Outpatient (AMB) | payer OTHER, SELFPAY ==
--- OUTSIDE RECORDS SUMMARY | 2024-05-20 04:30 | XMS_ITS ---
Author Organization [facility] Address [address] [place] [address] Care Team Providers Care Design Center Consultant Name Role Phone Po Emmy GUERRERO Primary Care Provider Jeffy Pittman [phone] REASON FOR VISIT positive colon ca screening using cologuard,chronic peptic ulcer Problems Problem Type SNOMED Code ICD Code Onset Dates Problem Status W/U Status Risk Notes Problem Diverticular disease of colon (262124238) Diverticulosis of large intestine without perforation or abscess without bleeding (K57.30) Active confirmed Problem Gastro-esophagea l reflux disease without esophagitis (696885960) Gastro-esophageal reflux disease without esophagitis (K21.9) Active confirmed Problem Duodenitis (88748564) Duodenitis (K29.80) Active confirmed Encounters Encounter Location Date Provider Diagnosis [facility] Outpatient [address] [place] [address] [id number] 05/20/2024 Jeffy Henao Colon polyps K63.5 ; Heme + stool R19.5 ; Diverticulosis of large intestine without perforation or abscess without bleeding K57.30 ; Gastro-esophageal reflux disease without esophagitis K21.9 ; Hiatal hernia K44.9 ; Duodenitis K29.80 and Personal history of peptic ulcer disease Z87.11 Assessments Encounter Date Diagnosis (ICD Code) Assessment Notes Treatment Notes Treatment Clinical Notes Section Notes 05/20/2024 Colon polyps (ICD-10 - K63.5) 05/20/2024 Heme + stool (ICD-10 - R19.5) 05/20/2024 Diverticulosis of large intestine without perforation or abscess without bleeding (ICD-10 - K57.30) 05/20/2024 Gastro-esophageal reflux disease without esophagitis (ICD-10 - K21.9) 05/20/2024 Hiatal hernia (ICD-10 - K44.9) 05/20/2024 Duodenitis (ICD-10 - K29.80) 05/20/2024 Personal history of peptic ulcer disease (ICD-10 - Z87.11) Plan Of Treatment No Information Progress Notes * ELIAS QURESHI RDOB:1960 (64 yo M)Acc No.[id number]:05/20/2024 EGD and COL/MAC Patient: ELIAS EDMOND Provider: Malika Henao MD :1960 A ge:64 Y S ex:Male Date:05/20/2024 Address:[address] [place] [id number] Pcp:Emmy Eubanks MD Subjective: * Chief Complaints: * 1 . Positive colon ca screening using cologuard,chronic peptic ulcer. * Medical History: Objective: * Vitals: Assessment: * Assessment: 1. C olon polyps - K63.5 (Primary) 2 . H pedro luis + stool - R19.5 ?3. D iverticulosis of large intestine without perforation or abscess without bleeding - K57.30 4 . G cha-esophageal reflux disease without esophagitis - K21.9 5. H iatal hernia - K44.9 6 . D uodenitis - K29.80 7 .?Personal history of peptic ulcer disease - Z87.11 Plan: * Treatment: * Procedure Codes: 4 5385 LESION REMOVAL COLONOSCOPY, 31829 UPPER GI ENDOSCOPY, BIOPSY * * The named appointment provid er may or may not be the originator of this progress note, and it is not deemed complete until electronically signed by the appointment provider. Sign off status: Pending * Provider: Malika Henao MD Date: 07/20/2023 Generated for Lucía gibbs/Jackelin/Tinsmitting on: 0 02/26/2025 09:26 AM EDT
[2025-02-26 09:01] VITALS: BP 128/72; PULSE 75; O2SAT 96; BMI 26.3
--- NOTE | 2025-02-26 09:01 | MHC.PC.OV ---
Vital Signs 02/26/25 09:01 Height 5 ft 8 in Weight 173 lb BMI 26.3 BP 128/72 Blood Pressure Location Lt brachial Position Sitting Pulse 75 Pulse Source Pulse Oximeter Pulse Oximetry (%) 96 Oxygen Delivery Method Room Air Intake Visit Reasons: DM Allergies morphine (MORPHINE) Allergy (Severe, Verified 02/26/25 09:01) hallucinations rosuvastatin Allergy (Intermediate, Verified 02/26/25 09:01) Rash metformin Adverse Reaction (Intermediate, Verified 02/26/25 09:01) skin reaction Medication List - Last Reconciled 02/26/25 by Emmy Eubanks MD aspirin 81 mg PO DAILY atorvastatin 80 mg PO DAILY 90 days hydrocodone-chlorpheniramine 10-8 mg/5 mL 5 mL PO Q12H PRN isosorbide mononitrate ER 30 mg PO DAILY metoprolol succinate ER (Toprol XL) 25 mg PO DAILY nitroglycerin 0.4 mg sublingual Q5M PRN pantoprazole 40 mg PO QAM Tobacco use date assessed: 08/26/24 Fall risk assessment: No Falls in past year Last assessed Fall Risk: 02/26/25 Dental Screening Dental Screen Date: 08/26/24 FORMERLY [facility] Medical History Positive colorectal cancer screening using Cologuard test Lateral epicondylitis of left elbow Neck pain Impacted cerumen of right ear Tinea cruris COPD (chronic obstructive pulmonary disease) Abdominal wall hernia Tobacco abuse Obesity (BMI 30-39.9) Type 2 diabetes mellitus with hyperglycemia Hypercholesterolemia Coronary artery disease Surgical History Hx of heart artery stent History of hernia surgery History of colostomy reversal History of colonoscopy Family History (Updated 08/26/24 @ 14:25 by Emmy Eubanks MD) Father Past heart attack Cancer Myocardial infarction Maternal Uncle Myocardial infarction Mother No problems noted. Paternal Grandfather Myocardial infarction Social History (Updated 08/26/24 @ 14:26 by Emmy Eubanks MD) Housing: House Are you a primary respiratory care practitioner to a significant other at home: No Do you presently have visiting nurse or other home services: No Alcohol intake: current Alcohol intake frequency: a few times a month Alcohol type: wine Comment: once a week Patient Tobacco Use Status: Former Tobacco user Tobacco use type: Cigarette Cigarette Packs Per Day: 0.5 Cigarettes Per Day: 10 Years Smoked: 12 years old started e-Cigarette/Vaping Use: Never Used Second Hand Smoke Exposure: No service: No Current occupational status: unemployed and disabled Cognitive needs: No Hearing needs: No Vision needs: No Questionnaire PHQ-9 Over the last 2 weeks, how often have you been bothered by any of the following problems? 1. Little interest or pleasure in doing things: not at all 2. Feeling down, depressed, or hopeless: not at all 3. Trouble falling or staying asleep, or sleeping too much: not at all 4. Feeling tired or having little energy: not at all 5. Poor appetite or overeating: not at all 6. Feeling bad about yourself - or that you are a failure or have let yourself or your family down: not at all 7. Trouble concentrating on things, such as reading the newspaper or watching television: not at all 8. Moving or speaking so slowly that other people could have noticed. Or the opposite - being so fidgety or restless that you have been moving around a lot more than usual: not at all 9. Thoughts that you would be better off or of hurting yourself in some way: not at all Total score: 0 Depression Screening Interpretation: Negative Depression Screening Done: Yes Source: Developed by Drs. Jeffy Riddle, Hailey Reynolds, Triston Melendez and colleagues, with an educational lu from [employer]. Thrive Questionnaire Date Thrive assessed: 02/26/25 I am a: Patient What is your living situation today?: I have a steady place to live Within the past 12 months, did the food you bought not last and you didn't have the money to get more?: Never true Within the past 12 months, did you worry whether your food would run out before you got money to buy more?: Never true Do you have trouble paying for medicines?: No Do you have trouble getting transportation to medical appointments?: No Do you have trouble paying your heating and electricity bill?: No Do you have trouble taking care of your child, family member or friend?: No Do you have trouble with day-to-day activities such as bathing, preparing meals, shopping, managing finances, etc.?: No Are you currently unemployed and looking for a job?: Yes Are you interested in more education?: No Please select the resources that you would like help with: None Currently or been in a relationship where the following occur: No concerns reported THRIVE Score: 0 AUDIT C Alcohol Use Questionnaire (AUDIT-C) 1. How often do you have a drink containing alcohol?: Never 3. How often do you have six or more drinks on one occasion?: Never Total Score: 0 GORDO-7 AMB Questionnaire GORDO-7 Date GORDO - 7 assessed: 08/26/24 Feeling nervous, anxious, or on edge: 0 = Not at all Not being able to stop or control worryin = Not at all Worrying too much about different things: 0 = Not at all Trouble relaxin = Not at all Being so restless that it is hard to sit still: 0 = Not at all Becoming easily annoyed or irritable: 0 = Not at all Feeling afraid as if something awful might happen: 0 = Not at all Total GORDO-7 score (0-4 normal; 5-9 mild; 10-14 moderate; 15-21 severe): 0 Source: Developed by Drs. Jeffy Riddle, Hailey Reynolds, Triston Melendez and colleagues, with an educational lu from [employer]. Physical exam (Primary Care) Vital Signs: Last Vital Signs Pulse 75 02/26/25 09:01 BP 128/72 02/26/25 09:01 Pulse Ox 96 02/26/25 09:01 Oxygen Delivery Method Room Air 02/26/25 09:01 BMI result Body Mass Index 26.3 Tobacco/Smoking Status: Tobacco use Status Tobacco use date assessed 08/26/24 02/26/25 09:02 Patient Tobacco Use Status Former Tobacco user 02/26/25 09:02 Tobacco use type Cigarette 02/26/25 09:02 e-Cigarette/Vaping Use Never Used 02/26/25 09:02 PHQ-9: PHQ-9 Score PHQ-9: Total score 0 02/26/25 09:56 Depression Screening Interpretation: Negative Thrive Assessment: Date of Thrive Assessment Date Thrive assessed 02/26/25 02/26/25 09:02 Currently or been in a relationship where the following occur: No concerns reported Const General: alert; No acute distress Eyes Conjunctivae: conjunctivae normal Resp Auscultation: clear to auscultation bilaterally Cardio Rate: regular rate Rhythm: regular rhythm GI Inspection: Yes normal to inspection Extrem General: Yes normal to inspection and No edema Results AMB Hemoglobin A1c AMB Hemoglobin A1c 5.7 % Last Edit by Alysha Talley CMA on 02/26/25 09:27 Immunizations Tenivac (PF) 5 Lf unit-2 Lf unit/0.5 mL intramuscular suspension Performing Provider: Emmy Eubanks MD Performing Location[place] [facility] Administered by: Alysha Talley CMA on 02/26/25 09:57 Dose Route Admin Location Dispensed Lot Number Expiration Date NDC Calibration Checker 0.5 mL IM Left Deltoid 0.5 mL [id number] 09/24/26 22893-157-12 [employer] Total Dispensed Waste 0.5 mL 0 % VIS Given Date VIS Provided VIS Publication Date 02/26/25 Single Vaccine 21 Eligibility Eligibility Date Funding Source Not [facility] Eligible 02/26/25 Private Results Reviewed Results Reviewed: Laboratory Last Values Hgb A1c (Clinic) 5.7 % (4.0-6.0) 02/26/25 09:02 Coding Level of Care Code Est Pt Level 4 (21156) Complex EM visit Add On G2211 Diagnoses Type 2 diabetes mellitus with hyperglycemia, without long-term current use of insulin E11.65 Diabetes mellitus petroleum terminal plant operator insulin use: without petroleum terminal plant operator use Coronary artery disease involving [place] coronary artery of [place] heart without angina pectoris I25.10 Associated angina: without angina Coronary Disease-Associated Artery/Lesion type: [place] artery [place] vs. transplanted heart: [place] heart Hypercholesterolemia E78.00 Overweight (BMI 25.0-29.9) E66.3 Fatty liver K76.0 Pulmonary emphysema, unspecified emphysema type J43.9 COPD type: emphysema Emphysema type: unspecified History of GI bleed Z87.19 Assessment & Plan Assessment & Plan (1) Type 2 diabetes mellitus with hyperglycemia: Comment: no Rx Dr. Mast Code(s): E11.65 - Type 2 diabetes mellitus with hyperglycemia Category: Medical Qualifiers: Diabetes mellitus jail insulin use: without jail use Qualified Code(s): E11.65 - Type 2 diabetes mellitus with hyperglycemia Plan: Decrease the amount of carbohydrate intake, pasta, bread, rice and potatoes are all sugar and that is aside from all the sweet stuff, remember that fruits are good but they are Sweet also. Hemoglobin A1c goal of less than 6.5. Diet controlled (2) Coronary artery disease: Comment: Stent May 2015 echo normal September 2018-follows w/PV Cardiology Code(s): I25.10 - Atherosclerotic heart disease of [place] coronary artery without angina pectoris Category: Medical Qualifiers: Associated angina: without angina Coronary Disease-Associated Artery/Lesion type: [place] artery [place] vs. transplanted heart: [place] heart Qualified Code(s): I25.10 - Atherosclerotic heart disease of [place] coronary artery without angina pectoris Plan: Control the cholesterol, weight, blood pressure, diabetes continue with aspirin 81 mg once a day (3) Hypercholesterolemia: Code(s): E78.00 - Pure hypercholesterolemia, unspecified Category: Medical Plan: Avoid fried foods, chicken skin, eggs, butter margarine, pastries and meat. Be it pork or beef they have a lot of cholesterol LDL goal of less than 70 and triglyceride of less than 150 on atorvastatin 80 mg once a day (4) Overweight (BMI 25.0-29.9): Code(s): E66.3 - Overweight Category: Medical Plan: Diet and exercise (5) Fatty liver: Code(s): K76.0 - Fatty (change of) liver, not elsewhere classified Category: Medical Plan: Low-fat diet and exercise (6) COPD (chronic obstructive pulmonary disease): Comment: Severe obstructive airway partial response PFT April 2019 Code(s): J44.9 - Chronic obstructive pulmonary disease, unspecified Category: Medical Qualifiers: COPD type: emphysema Emphysema type: unspecified Qualified Code(s): J43.9 - Emphysema, unspecified Plan: Stable (7) History of GI bleed: Code(s): Z87.19 - Personal history of other diseases of the digestive system Category: Medical Plan: Continue with pantoprazole 40 mg twice a day Plan History of Present Illness The patient is a 64-year-old male presenting for a follow-up visit and preventative care. He has a history of coronary artery disease, diabetes mellitus, hypercholesterolemia, and chronic obstructive pulmonary disease (COPD). The patient also has hepatic steatosis and a history of abdominal hernia repair in October 2023. The patient was last seen in August 2024 for a physical exam, and his last colonoscopy was in April 2024. He has been noted to have a weight loss of 6 pounds and has a history of gastrointestinal bleeding, which is a concern due to his aspirin use for coronary artery disease. The patient is on pantoprazole to manage the risk of gastrointestinal bleeding while on aspirin therapy. His recent blood work from July showed normal blood count, electrolytes, and renal function, but elevated blood sugar at 102 mg/dL. His hemoglobin A1c improved from 6.7% in March 2024 to 5.7%, indicating better diabetes control. The patient's LDL cholesterol was 48 mg/dL, which is below the target of less than 70 mg/dL, and he is on atorvastatin 80 mg daily. The patient engages in some physical activity, such as walking on the beach, but reports fatigue limiting his exercise capacity. He has a history of iron deficiency and is advised to avoid NSAIDs due to the risk of gastrointestinal bleeding. The patient is due for a tetanus vaccination, as his last was in 2012, and he is scheduled to receive it today. Health Maintenance - Colonoscopy performed in April 2024 - Tetanus vaccination due and scheduled for today - LDL cholesterol management with atorvastatin 80 mg daily - Diabetes management with diet control and hemoglobin A1c monitoring Social History - Exercise: Engages in walking on the beach but experiences fatigue Review of Systems - General: Reports weight loss of 6 pounds - Cardiovascular: Denies chest pain or palpitations - Respiratory: Denies dyspnea or cough - Gastrointestinal: Reports history of gastrointestinal bleeding - Endocrine: Reports improved blood sugar control Physical Exam Results - Labs: Normal blood count, normal electrolytes, renal function good, blood sugar elevated at 102 mg/dL - Labs: Hemoglobin A1c improved from 6.7% to 5.7% - Labs: LDL cholesterol at 48 mg/dL - Cardiac Tests: Normal nuclear stress test and echocardiogram in 2023 Plan Patient was informed and verbally consented to the use of an ambient scribe for clinic note documentation during this visit. 1. Coronary Artery Disease The patient is advised to continue aspirin 81 mg daily to prevent cardiac events, despite the history of gastrointestinal bleeding, with concurrent use of pantoprazole to mitigate bleeding risk. 2. Diabetes Mellitus Diabetes management includes maintaining a hemoglobin A1c goal of less than 6.5% through diet control, with current levels at 5.7%, indicating good control. 3. Hypercholesterolemia The patient is on atorvastatin 80 mg daily with a target LDL cholesterol of less than 70 mg/dL, currently at 48 mg/dL, which is well-controlled. 4. Chronic Obstructive Pulmonary Disease (Copd) The patient is advised to continue current management for COPD, with emphasis on avoiding respiratory irritants and maintaining physical activity as tolerated. 5. Hepatic Steatosis The patient is advised to maintain a healthy diet and exercise regimen to manage hepatic steatosis, with regular monitoring of liver function tests. 6. History Of Gastrointestinal Bleed The patient is advised to continue pantoprazole 40 mg daily to prevent gastrointestinal bleeding, especially while on aspirin therapy, and to avoid NSAIDs. 7. Preventative Care Preventative care includes scheduling a tetanus vaccination today, regular colonoscopy screenings, and monitoring of blood work every six months. Discussion Notes During the visit, I discussed the importance of continuing aspirin therapy for coronary artery disease while managing the risk of gastrointestinal bleeding with pantoprazole. We reviewed the patient's diabetes management, emphasizing diet control to maintain hemoglobin A1c below 6.5%. We also discussed the patient's cholesterol management with atorvastatin and the need for regular monitoring of liver function due to hepatic steatosis. Preventative care measures, including the tetanus vaccination and regular colonoscopy screenings, were also addressed. Patient Instructions - Continue taking aspirin 81 mg daily with pantoprazole to prevent bleeding. - Maintain a diet to keep hemoglobin A1c below 6.5%. - Take atorvastatin 80 mg daily to manage cholesterol levels. - Avoid NSAIDs to prevent gastrointestinal bleeding. - Engage in regular physical activity as tolerated. - Schedule and receive a tetanus vaccination today. Orders: Orders Thyroid Stimulating Hormone 6 Months I25.10 - Atherosclerotic heart disease of [place] coronary artery without angina pectoris Prostate Specific Antigen Scr 6 Months I25.10 - Atherosclerotic heart disease of [place] coronary artery without angina pectoris Creatinine Urine 6 Months E11.65 - Type 2 diabetes mellitus with hyperglycemia, I25.10 - Atherosclerotic heart disease of [place] coronary artery without angina pectoris Microalbumin, Random (w Creat) 6 Months E11.65 - Type 2 diabetes mellitus with hyperglycemia, I25.10 - Atherosclerotic heart disease of [place] coronary artery without angina pectoris AMB Hemoglobin A1c Today Z13.9 - Encounter for screening, unspecified Td Immunization Today Z23 - Encounter for immunization Complete Blood Count Auto Diff 6 Months I25.10 - Atherosclerotic heart disease of [place] coronary artery without angina pectoris Comprehensive Met. Panel 6 Months I25.10 - Atherosclerotic heart disease of [place] coronary artery without angina pectoris Hemoglobin A1c 6 Months I25.10 - Atherosclerotic heart disease of [place] coronary artery without angina pectoris Free T4 (Free Thyroxine) 6 Months I25.10 - Atherosclerotic heart disease of [place] coronary artery without angina pectoris Lipid Panel 6 Months E78.00 - Pure hypercholesterolemia, unspecified, I25.10 - Atherosclerotic heart disease of [place] coronary artery without angina pectoris Vitamin B12 and Folate 6 Months I25.10 - Atherosclerotic heart disease of [place] coronary artery without angina pectoris Medications: New aspirin 81 mg PO DAILY 30 tabs 0RF
--- OUTSIDE RECORDS SUMMARY | 2025-02-26 09:26 | XMS_ITS | Clinical Summary ---
Author Organization [facility] Address [address] [place] [address] Care Team Providers Care Deputy Clerk Of Court Name Role Phone Emmy Eubanks Primary Care Provider [phone] Allergies Active Allergy Reactions Criticality Noted Date [...] At this time Igor has an approximately 82-[id number] history. Today we discussed the importance of [...] for surgery. Igor does not have a enterprise resource analyst currently. Incisional hernia, without obstruction or gangre [...] 68 10/14/2021 1:07 PM EDT Temperature 36.5 C (97.7 F) 04/27/2015 2:35 PM EST Respiratory Rate - - Oxygen Saturation - - Inhaled Oxygen Concentration - - Weight 90.7 kg (200 lb) 10/14/2021 1:07 PM EDT Height 172.7 cm (5' 8 ) 10/14/2021 1:07 PM EDT Body Mass Index 30.41 10/14/2021 1:07 PM EDT Plan of Treatment Health Maintenance Due Date Last Done Comments Cologuard 1960 FOBT / Fit Test 1960 HIV Screening [address] Lung Cancer Screening (Baseline) 2010 Zoster Vaccines (1 of 2) 2010 DTaP,Tdap,and Td Vaccines (1 - Tdap) 11/28/2012 11/27/2012 Pneumococcal Vaccine: 50+ Years (2 of 2 - PCV) 03/24/2017 03/24/2016 Colon Cancer Screening 09/28/2022 Colonoscopy 09/28/2022 09/28/2012 Alcohol/Substance Use Screening 06/26/2024 Depression Screening and Follow-Up 06/26/2024 Social Drivers of Health Annual Screening 06/26/2024 COVID-19 Vaccine ( season) 2025 04/07/2021, 09/17/2020 Influenza Vaccine (#1) 2025 , 04/18/2019, 03/15/2018, Additional history exists RSV Vaccine (60+ years old and patients) (1 - 1-dose 75+ series) 2035 Hepatitis B Vaccines Aged Out No long er eligible based on patient's age to complete this topic Procedures * Due to [place] law, this organization might not be sharing negative HIV tests. Procedure Name Priority Date/Time Associated Diagnosis Comments COLONOSCOPY 09/28/2012 from Last 3 Months or Most Recently Relevant to Health Maintenance Results * Due to [place] law, this organization might not be sharing negative HIV tests. * COLONOSCOPY (09/28/2012) 09/28/2012 us Onbase Scan [facility] Final Resu lt from Last 3 Months or Most Recently Relevant to Health Maintenance Insurance [facility] Care Teams Deputy Clerk Of Court Relationship Specialty Start Date End Date Emmy Eubanks [address] [place] [address] [place] [address] PCP - General Internal Medicine 10/08/21
--- OUTSIDE RECORDS SUMMARY | 2025-02-26 09:26 | XMS_ITS | Clinical Summary ---
Author Organization [facility] Address [address] [id number] Phone Care Team Providers Care Electromechanical Assembler Name Role Phone Unavailable Primary Care Provider Unavailabl e Social History Tobacco Use Types Packs/Day Years Used Date Smoking Tobacco: Never Assessed Education Answer Date Recorded Are you interested in more education? Not on myla e 11/23/2023 Are you concerned about learning? Not on file 11/23/2023 No 11/23/2023 No 11/23/2023 Digital Access Answer Date Recorded No 11/23/2023 No 11/23/2023 Reliable internet access at home? Not on file 11/23/2023 Device with a working camera? Not on file Sex and Gender Information Value Date Recorded Sex Assigned at Not on file Legal Sex Male 4:41 PM EDT Gender Identity Not on file Sexual Orientation Not on file Plan of Treatment Not on file Medical Devices Not on file Insurance [facility] MEDICARE REPLACEMENT [facility] MEDICARE REPLACEMENT CARE MEDICARE REPLACEMENT CARE MEDICARE REPLACEMENT ONE CARE MEDICARE REPLACEMENT [facility] ONE CARE MEDICARE REPLACEMENT Additional Source Comments The information contained in this document represents components of the legal health record. It is not the complete legal health record.[facility]
--- OUTSIDE RECORDS SUMMARY | 2025-02-26 09:26 | XMS_ITS | Patient Health Record ---
Author Organization [facility] Address [address] [place] [address] Care Team Providers Care Last Inserter Name Role Phone Emmy Eubanks MD Primary Care Provider Jeffy Pittman [phone] Allergies Allergen (clinical drug ingredient) Drug/Non Drug Allergy documented on EMR Reaction Allergy Type Onset Date Status morphine Morphine Unknown Drug Allergy Active Results Component Value Reference Range Notes Pathology Reviewed date:12/17/2024 01:38:29 PM Interpretation: Performing Lab:[facility], [address] [place] [phone] Notes/Report: Reason For Referral No Information Medications Medication SIG (Take, Route, Frequency, Duration) Notes [...] ER 25 MG Oral for 90 Active Social History Tobacco Use: Social History Observation Description Date Details (start date - stop date) Former Smoker NA - NA Tobacco Use/Smoking Question Answer Notes Patient is [...] Never (0 point) Points 2 Interpretation Negative Section Notes: Stopped smoking 2 years ago 2021; occasional alcohol Problems Problem Type SNOMED Code ICD Code Onset Dates Problem Status W/U Status Risk Notes Problem Gastro-esophagea l reflux disease without esophagitis (145098997) Gastro-esophageal reflux disease without esophagitis (K21.9) Active confirmed Problem Chronic peptic ulcer with hemorrhage (79047761) Chronic or unspecified peptic ulcer, site unspecified, with hemorrhage (K27.4) Active confirmed Problem Diverticular disease of colon (551306078) Diverticulosis of large intestine without perforation or abscess without bleeding (K57.30) Active confirmed Problem Duodenitis (47538356) Duodenitis (K29.80) Active confirmed Problem Abnormal feces (146963338) Positive colorectal cancer screening using Cologuard test (R19.5) Active confirmed Encounters Encounter Location Date Provider Diagnosis [facility] [address] [place] [phone] 05/20/2024 Jeffy Henao Colon polyps K63.5 ; Heme + stool R19.5 ; Diverticulosis of large intestine without perforation or abscess without bleeding K57.30 ; Gastro-esophageal reflux disease without esophagitis K21.9 ; Hiatal hernia K44.9 ; Duodenitis K29.80 and Personal history of peptic ulcer disease Z87.11 [facility] [address] [place] [address] 12/17/2024 Jeffy Henao Assessments Encounter Date Diagnosis (ICD Code) Assessment [...] disease (ICD-10 - Z87.11) Plan Of Treatment Future Test Test Name Order Date UPPER GI ENDOSCOPY 01/16/2024 COLONOSCOPY 01/16/2024 Insurance Providers Payer Name Payer Address Payer Phone Subscriber Number Group Number Insured Name Patient Relationship to Insured Coverage Start Date Coverage End Date [facility] [address] Attn Claims [place] [id number] ELIAS QURESHI Self - patient is the insured Medical (General) History Medical History History ICD Code GI bleed from ulcer disease while recovering from his abdominal wall hernia surgery in October of 2023 [place] with previous stent place ment approximately 2014--negative stress test in spring COPD Denies DM,CVA,renal disease Hyperlipidemia Suboptimal CT Colonography s tudy in July of [address] Keen. The prep for the study was poor. Surgical History Surgery Date(Month/Year) Diverticulitis with surgery at [facility] with Dr. Keen-sigmoid resection/George's pouch with a temporary colostomy. Underwent a reversal of the colostomy with a temporary ileostomy at that time. This was also ultimately reversed by Dr. Keen. 2013 Some type of small bowel per foration and temporary ileostomy treated at [facility] approx 2015 Repair of a large abdominal wall hernia surgery with Dr. Addison in October of 2023-complicated with an upper GI bleed requiring upper endoscopy at that time. The surgery was done in [place], [place] 10/2023
--- OUTSIDE RECORDS SUMMARY | 2025-02-26 09:26 | XMS_ITS | Clinical Summary ---
Author Organization [facility] Address [address] [place] [address] Phone Care Team Providers Care Clinical Biostatistician Name Role Phone Emmy Eubanks MD Primary Care Provider [phone] Allergies Active Allergy Reactions Criticality Noted Date Comments Morphine 04/20/2023 Medications atorvastatin (LIPITOR) 80 mg tablet TAKE 1 TABLET BY MOUTH EVERY DAY Active pantoprazole (PROTONIX) 20 mg EC tablet Take 1 tablet (20 mg total) by mouth 1 (one) time each day before breakfast. Do not crush, chew, or split. Active metoprolol succinate (TOPROL-XL) 25 mg 24 hr tabletIndication s:Atheroscleroti c heart disease of [place] coronary artery without angina pectoris TAKE 1 TABLET BY MOUTH EVERY DAY 90 tablet 3 10/28/2024 Active isosorbide mononitrate (IMDUR) 30 mg 24 hr tablet TAKE 1 TABLET BY MOUTH EVERY DAY AT DINNER TIME 90 tablet 3 10/28/2024 Active aspirin 81 mg EC tablet Take 1 tablet (81 mg total) by mouth 1 (one) time each day. Active Active Problems Problem Noted Date Diagnosed [...] diet and healthy lifestyle. Assessment & Plan (12/15/2024 9:56 PM EDT): The patient has a history of hyperlipidemia. The patient is currently on atorvastatin 80 mg orally daily. We will order a new lipid panel to evaluate the patient's current lipid control and determine if any adjustment are needed in the lipid lowering therapy. Orders: Lipid panel; Future Hepatic function panel; Future Assessment & Plan (07/21/2024 6:54 PM EST): [...] will continue medical therapies. Assessment & Plan (12/15/2024 9:57 PM EDT): The patient has a history of coronary artery disease. Currently, the patient denies any chest pain at rest or with exertion. The patient continues on secondary preventive therapy for CAD, including: statin and beta estella. The patient states that he is not taking aspirin 81 mg orally daily as instructed by his roving hand. Will attempt to clarify this further with his roving hand given the need for long-term antiplatelet therapy due to his history of CAD. Orders: Lipid panel; Future Hepatic function panel; Future Assessment & Plan (07/21/2024 6:54 PM EST): The patient has a history of coronary artery disease. Currently, the patient denies any chest pain at rest or with exertion. The patient continues on secondary preventive therapy for CAD, including: Isosorbide mononitrate, statin and beta estella. Of note, the patient states that his aspirin was recently discontinued by his roving hand due to significant peptic ulcer disease. Will attempt to obtain the records from the patient's roving hand in order to review this. If so, then we may need to consider the use of clopidogrel monotherapy. Orders: Comprehensive metabolic panel; Future Lipid panel; Future Encounters Date Type Department Care Team Description 12/16/[address] [facility] [address] [place] [address] Mahin Perea MD from Last 3 Months Social History Tobacco [...] Sign Reading Time Taken Comments Blood Pressure 138/60 10/28/2024 1:59 PM EDT Pulse 62 10/28/2024 1:59 PM EDT Temperature - - Respiratory Rate - - Oxygen Saturation 98% 10/28/2024 1:59 PM EDT Inhaled Oxygen Concentration - - Weight 80.4 kg (177 lb 3.2 oz) 10/28/2024 1:59 P M EDT Height 172.7 cm (5' 8 ) 10/28/2024 1:59 PM EDT Body Mass Index 26.94 10/28/2024 1:59 PM EDT Plan of Treatment Upcoming Encounters Date Type Department Care Team (Late st Contact Info) Description 05/09/2025 2:00 PM EST Office Visit [facility] [address] [place] [address] Mahin Perea MD [address] [place] [address] [address] [place] [phone] Health Maintenance Due Date Last Done Comments Colorectal Cancer Screening: Colonoscopy 05/25/2022 HIV Screening 05/25/2022 Hepatitis C Screening 05/25/2022 Lung Cancer Screening (Low Dose CT) 05/25/2022 Medicare Annual Wellness Visit 05/25/2022 Social Influencers of Health Screening 05/25/2022 Hypertension/CHF/CAD Annual BMP Blood Test 06/05/2022 DTaP,Tdap,and Td Vaccines (2 - Td or Tdap) 11/27/2022 11/27/2012 COVID-19 Vaccine ( season) 2024 04/11/2023, 07/14/2022, 10/12/2021, Additional history exists Depression Screening 06/26/2024 Influenza Vaccine (#1) 2025 , 04/06/2023, 04/05/2022, Additional history exists Cholesterol Screening (Lipid Panel) 10/28/2029 10/28/2024 RSV Immunization Adult Patients (1 - 1-dose 75+ series) 2035 Zoster Vaccines Completed 12/09/2023, 11/26/2022 Pneumococcal Vaccine: 50+ Years Completed 03/04/2024, 03/24/2016 HIB Vaccines Aged Out No longer eligi [...] age to complete this topic Meningococcal B Vaccine Aged Out No l onger eligible based on patient's age to complete this topic RSV Immunization Patients Under 20 months Aged Out No longer eligible based on patient's age to complete this topic Varicella Vaccines Aged Out No longer eligible based on patient's age to complete this topic Procedures Procedure Name Priority Date/Time Associated Diagnosis Comments LIPID PANEL Routine 10/28/2024 2:35 PM EDT Coronary artery disease involving [place] coronary artery of [place] heart without angina pectoris Pure hypercholesterolemia from Last 3 Months or Most Recently Relevant to Health Maintenance Results * (ABNORMAL) Lipid panel (10/28/2024 2:35 PM EDT) Cholesterol Total 99(L) 100 - 199 mg/dL [facility] Triglycerides 111 0 - 149 mg/dL [facility] HDL Cholesterol 37(L) >39 mg/dL [facility] VLDL Cholesterol Calculated 21 5 - 40 mg/dL [facility] LDL Chol Calc (NIH) 41 0 - 99 mg/dL [facility] Blood Venous blood specimen / Unknown 10/28/2024 2:35 PM EDT 10/28/2024 Narrative [facility] - 10/29/2024 12:07 PM EDT Performed at: 01 - [facility] [address] [id number] [place] Line Yarder: Mavis Rivas MD, Phone: [phone] Mahin Perea MD LAB BLOOD ORDERABLES F inal Result [facility] 1 from Last 3 Months or Most Recently Relevant to Health Maintenance Insurance [facility] MEDICARE Member Subscriber Plan / Payer (Ef fective 2020-Present) Name:Igor Arcos Relation to Subscriber:Self Name:Igor Arcos Payer ID:[id number] Group ID:[id number] Type:Not on file Address: [place] [address] [place] [id number] Care Teams Clinical Biostatistician Relationship Specialty Start Date End Date Emmy Eubanks MD [address] [place] [address] [address] [facility] [place] [address] PCP - General 10/03/16
== END 2025-02-26 10:01 | disposition home or self-care (01) ==
LOC: HO.HMCH 08:53
PROVIDERS: PCP Internal Medicine; Visit Provider Internal Medicine
DX: E11.65 Type 2 diabetes mellitus with hyperglycemia (principal); J43.9 Emphysema, unspecified; E66.3 Overweight; Z68.26 Body mass index [BMI] 26.0-26.9, adult; I25.10 Atherosclerotic heart disease of native coronary artery without angina pectoris; E78.00 Pure hypercholesterolemia, unspecified; K76.0 Fatty (change of) liver, not elsewhere classified; Z87.19 Personal history of other diseases of the digestive system; Z23 Encounter for immunization

== ENCOUNTER → 2025-02-26 08:53 | Outpatient (BNVA) | payer OTHER, SELFPAY | PROVIDERS: PCP Internal Medicine; Visit Provider Internal Medicine | DX: E11.65 Type 2 diabetes mellitus with hyperglycemia (principal); I25.10 Atherosclerotic heart disease of native coronary artery without angina pectoris; E78.00 Pure hypercholesterolemia, unspecified; E66.3 Overweight; J43.9 Emphysema, unspecified; K76.0 Fatty (change of) liver, not elsewhere classified; Z23 Encounter for immunization; Z87.19 Personal history of other diseases of the digestive system; Z68.26 Body mass index [BMI] 26.0-26.9, adult | CPT/HCPCS: 83036; 90471; 90714; 96127; 99212 ==